=== PATIENT | male | born 1955 | race Caucasian/White ===

== ENCOUNTER 2022-01-19 06:27 | Day surgery (SDC) | payer MEDICARE, SELFPAY ==
[2022-01-09 15:15] VITALS: BMI 30.6
--- NOTE | 2022-01-15 13:46 | HO.ANESPROP2 ---
Documented by User: Laura Lea NP 01/15/22 13:47 HPI - Anesthesia Eval Consult details Narrative: 66yo M for Colonoscopy [facility] Past Medical History Medical History Diabetes DVT (deep venous thrombosis) Elevated cholesterol HTN (hypertension) Pancreatic cancer Sleep apnea Surgical History Surgical History H/O colonoscopy History of laparotomy History of Whipple procedure Hx of appendectomy Hx of hemorrhoidectomy Social History Social History Household Members: Spouse Patient Tobacco Use Status: Former Tobacco user Quit Date: >30 yrs ago Tobacco use type: Cigarette Use of substances other than those prescribed or required for medical reasons: No Are you DNR?: No Advance Directives: No Advance Directives Information Provided: Yes Meds Allergies Allergy/AdvReac Type Severity Reaction Status Date / Time No Known Allergies Allergy Verified 01/19/22 08:22 [No Known Allergies*] Home Medications Medication Instructions Recorded Confirmed Last Taken Type aspirin 81 mg tablet,delayed 81 mg PO DAILY 01/09/22 01/09/22 Unknown History release atorvastatin 80 mg tablet 80 mg PO BEDTIME 01/09/22 01/09/22 Unknown History insulin glargine 100 unit/mL unit SUBCUT DAILY 01/09/22 Unknown History subcutaneous solution (Lantus U-100 Insulin) pantoprazole 40 mg tablet,delayed 40 mg PO DAILY 01/09/22 01/09/22 Unknown History release sertraline 50 mg tablet 50 mg PO DAILY 01/09/22 01/09/22 Unknown History ferrous sulfate 325 mg (65 mg 1 tab PO TID 01/19/22 01/19/22 01/05/22 History iron) tablet (FeroSul) metformin 500 mg tablet 2 tab PO BID 01/19/22 01/19/22 Unknown History Exam Exam Date and Time: January 15, 2022 1346 Height,Weight and Vital Signs: Height 5 ft 5 in Weight 83.461 kg Assessment and Plan Assessment Anesthesia Assessment: Chart Reviewed Documented by User: Charlene Mejia MD 01/19/22 09:01 [facility] Active Problems Active Problems: LOTTIE. Uses CPAP machine every night Depression Past Medical History Medical History Diabetes DVT (deep venous thrombosis) Elevated cholesterol HTN (hypertension) Pancreatic cancer Sleep apnea Family History Family history of problems with anesthesia: No Surgical History Surgical History H/O colonoscopy History of laparotomy History of Whipple procedure Hx of appendectomy Hx of hemorrhoidectomy History of Problems with Anesthesia: No Social History Social History Household Members: Spouse Patient Tobacco Use Status: Former Tobacco user Quit Date: >30 yrs ago Tobacco use type: Cigarette Use of substances other than those prescribed or required for medical reasons: No Are you DNR?: No Advance Directives: No Advance Directives Information Provided: Yes Meds Allergies Allergy/AdvReac Type Severity Reaction Status Date / Time No Known Allergies Allergy Verified 01/19/22 08:22 [No Known Allergies*] Home Medications Medication Instructions Recorded Confirmed Last Taken Type aspirin 81 mg tablet,delayed 81 mg PO DAILY 01/09/22 01/09/22 Unknown History release atorvastatin 80 mg tablet 80 mg PO BEDTIME 01/09/22 01/09/22 Unknown History insulin glargine 100 unit/mL unit SUBCUT DAILY 01/09/22 Unknown History subcutaneous solution (Lantus U-100 Insulin) pantoprazole 40 mg tablet,delayed 40 mg PO DAILY 01/09/22 01/09/22 Unknown History release sertraline 50 mg tablet 50 mg PO DAILY 01/09/22 01/09/22 Unknown History ferrous sulfate 325 mg (65 mg 1 tab PO TID 01/19/22 01/19/22 01/05/22 History iron) tablet (FeroSul) metformin 500 mg tablet 2 tab PO BID 01/19/22 01/19/22 Unknown History Exam Height,Weight and Vital Signs: Height 5 ft 5 in Weight 83.461 kg Vital Signs Temp Pulse Resp BP Pulse Ox 01/19/22 08:04 98.3 F 63 16 140/84 H 96 Pertinent Lab Results Pertinent Lab Results: Lab Results 01/19/22 Range/Units 07:55 POC Glucose 105 (60-115) mg/dL Airway Mallampati Class: II TM Dist: >3cm Neck ROM: Full Denture: Upper Partial: Lower Heart: RRR Lungs: CTAB Assessment and Plan Assessment Anesthesia Assessment: Anesthesia Plan Discussed Final Anesthetic Review Family History of Problems with Anesthesia: No History of Problems with Anesthesia: No NPO: Yes ASA Class: III Final Preanesthetic Review: No Changes in Pt Med Stat, Meds/Allgs Chart Reviewed, Consent Obtained/Reviewed and Anes Risks/Benef Reviewed Patient Risk: Intermediate Procedure Risk: Low Assessment/Block/Sedation in SS: Assess/Block/Sedation-SS Anesthetic Plan Anesthetic Plan: MAC: Disposition: Standard PACU
[2022-01-19 08:04] VITALS: BP 140/84; PULSE 63; RESP 16; TEMP 36.8; O2SAT 96
[2022-01-19 08:09] LABS: Glucose, Whole Blood 105 mg/dL (60-115)
[2022-01-19 09:33] VITALS: BP 121/75; PULSE 69; RESP 18; TEMP 36.3; O2SAT 96
--- NOTE | 2022-01-19 09:33 | PM.OP ---
Brief Operative Note Date of Service: 01/19/22 Pre-op diagnosis: Screening Post-op diagnosis: other (Colon angiodysplasia, Diverticulosis) Procedure: Colonoscopy to the cecum and TI Surgeon: Amadou Cardenas Anesthesia: MAC Was an Phlebotomy Manager used for this Procedure?: No Estimated blood loss (mL): 0 Pathology: none sent Condition: stable Disposition: PACU
[2022-01-19 09:46] VITALS: BP 126/75; PULSE 75; RESP 14; TEMP 36.3; O2SAT 97
--- NOTE | 2022-01-19 10:09 | OP_ITS ---
SURGEON: Amadou Cardenas MD INDICATIONS: The patient presents for evaluation of personal history of tubular adenoma of the colon and colorectal cancer screening. Full consent has been obtained from him for this, including risks of bleeding and perforation. PREOPERATIVE DIAGNOSIS: Colorectal cancer screening and personal history of tubular adenoma of the colon. POSTOPERATIVE DIAGNOSIS: PROCEDURE PERFORMED: Colonoscopy to the cecum and terminal ileum. ESTIMATED BLOOD LOSS: COMPLICATIONS: ANESTHESIA: Monitored anesthesia care. ASSISTANTS: SPECIMENS: POSTOPERATIVE DIAGNOSES: Colorectal cancer screening and personal history of tubular adenoma of the colon, diverticulosis and internal hemorrhoids. DESCRIPTION OF PROCEDURE: The patient was placed in the left lateral decubitus position. The digital rectal exam revealed no abnormalities. The Olympus video pediatric colonoscope was entered into the rectum and advanced easily to the cecum. Once in the cecum, I did identify normal-appearing cecal pouch with appendiceal orifice and a normal-appearing ileocecal valve. The terminal ileum was cannulated and appeared normal. The scope was withdrawn back into the colon. The entire cecum and ileocecal valve appeared normal. The scope was then slowly withdrawn assessing all mucosal surfaces carefully. Preparation was excellent, although there were some areas of some liquid stool in the sigmoid colon in the area of diverticula that was irrigated and suctioned away as best as possible. In the region of the cecum or proximal ascending colon was a single nonbleeding 10 mm angiodysplasia. I did not visualize any other angiodysplasias, polyps, nor colitis. There was a moderate amount of sigmoid diverticulosis. In the rectum, scope was retroflexed visualizing internal hemorrhoids, but no other pathology. The rectal mucosa appeared normal. The scope was straightened and withdrawn from the patient. He tolerated the procedure well and was returned to the recovery area in stable condition. IMPRESSION: 1. Nonbleeding angiodysplasia. 2. Diverticulosis. 3. Internal hemorrhoids. PLAN: Given his previous history, I would recommend a followup colonoscopy in 5 years. He was advised to resume his aspirin and iron by tomorrow. He would see me on a p.r.n. basis otherwise. MD ALEJANDRA Michael/ELZBIETA / [id number]
== END 2022-01-19 10:25 | disposition home or self-care (01) ==
PROVIDERS: PCP Internal Medicine; Visit Provider Internal Medicine
PROC: 0DJD8ZZ Inspection of Lower Intestinal Tract, Via Natural or Artificial Opening Endoscopic (ICD-10-PCS; CPT 45378; principal; 2022-01-19 08:20)
DX: Z12.11 Encounter for screening for malignant neoplasm of colon (principal); Z86.010 Personal history of colon polyps; K55.20 Angiodysplasia of colon without hemorrhage; K57.30 Diverticulosis of large intestine without perforation or abscess without bleeding; K64.8 Other hemorrhoids; E78.5 Hyperlipidemia, unspecified; I10 Essential (primary) hypertension; G47.33 Obstructive sleep apnea (adult) (pediatric); E11.9 Type 2 diabetes mellitus without complications; Z79.4 Long term (current) use of insulin; Z79.82 Long term (current) use of aspirin; Z99.89 Dependence on other enabling machines and devices; Z85.07 Personal history of malignant neoplasm of pancreas; Z87.891 Personal history of nicotine dependence
CPT/HCPCS: G0105; 82947

== ENCOUNTER 2024-03-27 08:51 | Outpatient (AMB) | payer MEDICARE, SELFPAY ==
--- NOTE | 2024-03-27 09:05 | A.OFFPC_ITS ---
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 Intake Note: New patient visit Business Operations Coordinator Required: No Allergies No Known Allergies [No Known Allergies*] Allergy (Verified 03/27/24 09:06) Tobacco use date assessed: 03/27/24 Fall risk assessment: No Falls in past year Last assessed Fall Risk: 03/27/24 Dental Screening Dental Screen Date: 03/27/24 Did you have a dental visit in the last 12 months?: Yes Did you have a dental problem in the last 6 months where you did not have access to dental care?: No Was dental information given to patient?: Patient has dentist HPI HPI Comments History of Present Illness Details This is a 69-year-old male with a past medical history of pancreatic cancer in remission s/p Whipple 2018, depression, GERD, insulin-dependent type 2 diabetes, sleep apnea on CPAP, hyperlipidemia and prostate cancer presenting to [facility]. He transferred from [facility] since they changed to a [facility]. Pancreatic cancer-2018 ipple, sees Dr. Reyes annually. He has a visit in August 2024. Denies abdominal pain, nausea, vomiting or unexplained weight loss. On chronic PPI following Whipple. Prostate cancer-diagnosed this year. He sees Dr. Joy. He is starting radiation therapy soon. Type 2 diabetes mellitus-diagnosed prior to having prostate cancer and Whipple, but patient says he was not on medications for it until after this. Dr. Carrasquillo is eye doctor. He has bilateral cataracts. Blood glucose earlier this morning was 114. Currently 275 after eating breakfast which was espresso at 07:30 followed by a coffee with cream and a bagel with cheese and ham. No symptoms of hyperglycemia today. Glucose varies greatly. Uses CGM. No hypoglycemia within the past month. Patient says he has a sweet tooth. He is on 15 units of Lantus nightly, metformin a 1000 mg twice daily and uses a sliding scale for Humalog. Previously followed by endocrinology at [facility], but he says he was always seeing different providers and there was a lot of turnover. 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 He thinks his A1c 5 months ago was 9%. Denies neuropathy symptoms. Depression treated with sertraline 50 mg daily. He says this is well- controlled. ROS: Constitutional: No unexplained weight loss, fever, chills, fatigue or night sweats. Eyes: No vision changes, blurry vision, double vision, eye pain, eye redness, eye discharge. Respiratory: No shortness of breath, cough or sputum production. Cardiovascular: No chest pain, chest pressure or chest discomfort. No palpitations or pedal edema. Gastrointestinal: No anorexia, nausea, vomiting or diarrhea. No abdominal pain or blood in stool. Neurologic: No headache, dizziness, syncope, unilateral weakness, ataxia, numbness or tingling in the extremities. Skin: No rash Endocrine: No cold or heat intolerance. No polyuria or polydipsia. Psychiatric: No depression or anxiety. Physical exam: Constitutional: Alert, in no distress. Eyes: Pupils are equal, round and reactive to light. Extraocular muscles intact. Neck: Supple, Full range of motion. No lymphadenopathy. Respiratory: Clear to auscultation. Cardiovascular: S1 S2 regular. No murmurs. Gastrointestinal: Abdomen soft, non-tender, non-distended. Normal bowel sounds. No palpable masses. Neurologic: No focal neurological deficits. Musculoskeletal: No gross deformities. Normal range of motion. Extremities: Warm and well perfused. No clubbing, cyanosis or edema. Psychiatric: Normal mood and affect [facility] Medical History (Updated 03/27/24 @ 14:16 by PAWAN Earl) Diabetes mellitus type 2, insulin dependent Prostate cancer Depression GERD (gastroesophageal reflux disease) Hypercholesterolemia Pancreatic cancer Sleep apnea HTN (hypertension) DVT (deep venous thrombosis) Elevated cholesterol Diabetes Surgical History H/O colonoscopy History of laparotomy Hx of hemorrhoidectomy Hx of appendectomy History of Whipple procedure Social History Household Members: Spouse Housing: House Patient Tobacco Use Status: Former Tobacco user Tobacco use type: Cigarette Cigarette Packs Per Day: 3 Years Smoked: 15 quit in 1989 e-Cigarette/Vaping Use: Never Used Second Hand Smoke Exposure: No service: No Current occupational status: retired Cognitive needs: No Hearing needs: Yes (hearing aid) Vision needs: Yes (glasses) Questionnaire PHQ-9 Over the last 2 weeks, how often have you been bothered by any of the following problems? 1. Little interest or pleasure in doing things: not at all 2. Feeling down, depressed, or hopeless: not at all 3. Trouble falling or staying asleep, or sleeping too much: not at all 4. Feeling tired or having little energy: not at all 5. Poor appetite or overeating: not at all 6. Feeling bad about yourself - or that you are a failure or have let yourself or your family down: not at all 7. Trouble concentrating on things, such as reading the newspaper or watching television: not at all 8. Moving or speaking so slowly that other people could have noticed. Or the opposite - being so fidgety or restless that you have been moving around a lot more than usual: not at all 9. Thoughts that you would be better off or of hurting yourself in some way: not at all Total score: 0 Depression Screening Interpretation: Negative Depression Screening Done: Yes [id number] - PHQ-9 Billing: Yes Source: Developed by Drs. Amadou Hanna, Breann Murillo, Mahamed Lynn and colleagues, with an educational shawna from [employer]. Thrive Questionnaire Date Thrive assessed: 03/27/24 I am a: Patient What is your living situation today?: I have a steady place to live Within the past 12 months, did the food you bought not last and you didn't have the money to get more?: Never true Within the past 12 months, did you worry whether your food would run out before you got money to buy more?: Never true Do you have trouble paying for medicines?: No Do you have trouble getting transportation to medical appointments?: No Do you have trouble paying your heating and electricity bill?: No Do you have trouble taking care of your child, family member or friend?: No Do you have trouble with day-to-day activities such as bathing, preparing meals, shopping, managing finances, etc.?: No Are you currently unemployed and looking for a job?: No Are you interested in more education?: No Please select the resources that you would like help with: None Currently or been in a relationship where the following occur: No concerns reported THRIVE Score: 0 AUDIT C Alcohol Use Questionnaire (AUDIT-C) 1. How often do you have a drink containing alcohol?: Never (Stopped in 2019) 3. How often do you have six or more drinks on one occasion?: Never Total Score: 0 TERRI-7 AMB Questionnaire TERRI-7 Date TERRI - 7 assessed: 03/27/24 Feeling nervous, anxious, or on edge: 0 = Not at all Not being able to stop or control worryin = Not at all Worrying too much about different things: 0 = Not at all Trouble relaxin = Not at all Being so restless that it is hard to sit still: 0 = Not at all Becoming easily annoyed or irritable: 0 = Not at all Feeling afraid as if something awful might happen: 0 = Not at all Total TERRI-7 score (0-4 normal; 5-9 mild; 10-14 moderate; 15-21 severe): 0 Source: Developed by Drs. Amadou Hanna, Breann Murillo, Mahamed Lynn and colleagues, with an educational shawna from [employer]. TERRI-7 Assessment Billing TERRI-7 Assessment Tool: TERRI-7 Assessment 24069 Physical exam (Primary Care) Vital Signs: Last Vital Signs Temp 98.2 F 03/27/24 09:23 Pulse 73 03/27/24 09:23 Resp 14 03/27/24 09:23 BP 112/68 03/27/24 09:23 Pulse Ox 95 03/27/24 09:23 Oxygen Delivery Method Room Air 03/27/24 09:23 BMI result Body Mass Index 26.4 Tobacco/Smoking Status: Tobacco use Status Tobacco use date assessed 03/27/24 03/27/24 09:10 Patient Tobacco Use Status Former Tobacco user 03/27/24 09:10 Tobacco use type Cigarette 03/27/24 09:10 e-Cigarette/Vaping Use Never Used 03/27/24 09:10 PHQ-9: PHQ-9 Score PHQ-9: Total score 0 03/27/24 10:06 Depression Screening Interpretation: Negative Thrive Assessment: Date of Thrive Assessment Date Thrive assessed 03/27/24 03/27/24 09:29 Currently or been in a relationship where the following occur: No concerns reported Assessment and Plan Assessment & Plan (1) Pancreatic cancer: Comment: 2019-had Whipple procedure (no chemo or radiation) Code(s): C25.9 - Malignant neoplasm of pancreas, unspecified Qualifiers: Pancreatic malignancy location: unspecified Qualified Code(s): C25.9 - Malignant neoplasm of pancreas, unspecified (2) Depression: Code(s): F32.A - Depression, unspecified Qualifiers: Depression Type: persistent depressive disorder Qualified Code(s): F34.1 - Dysthymic disorder (3) GERD (gastroesophageal reflux disease): Code(s): K21.9 - Gastro-esophageal reflux disease without esophagitis Qualifiers: Esophagitis presence: without esophagitis Qualified Code(s): K21.9 - Gastro-esophageal reflux disease without esophagitis (4) Sleep apnea: Comment: uses CPAP Code(s): G47.30 - Sleep apnea, unspecified Qualifiers: Sleep apnea type: obstructive Qualified Code(s): G47.33 - Obstructive sleep apnea (adult) (pediatric) (5) Diabetes mellitus type 2, insulin dependent: Code(s): E11.9 - Type 2 diabetes mellitus without complications; Z79.4 - detention (current) use of insulin (6) Hypercholesterolemia: Code(s): E78.00 - Pure hypercholesterolemia, unspecified (7) Prostate cancer: Code(s): C61 - Malignant neoplasm of prostate Plan Pancreatic cancer No known recurrence. He sees his surgeon annually. Depression Controlled. Continue sertraline. GERD Following Whipple procedure. Continue chronic PPI. Sleep apnea Compliant with CPAP. Avoidance of alcohol recommended. Type 2 diabetes Patient had type 2 diabetes and then pancreatic injury (cancer and Whipple). Referred to Dr. Reyna. Request falls diabetic labs. Patient will return fasting for these. We will discuss adjusting regimen and schedule short term follow up for this problem. I think he would benefit from seeing information resources manager. He will think about this. Explained diet high in carbs caused blood sugar to increase this morning. Reviewed treatment for hypo and hyper glycemia. Eye exam is up-to-date. Hyperlipidemia Check lipid profile. Continue atorvastatin. Prostate cancer Continue treatment plan per Urology. Follow up in 1 month for diabetes and review labs. Orders: Orders Lipid Panel Today C61 - Malignant neoplasm of prostate, E11.9 - Type 2 diabetes mellitus without complications, E78.00 - Pure hypercholesterolemia, unspecified Comprehensive Met. Panel Today C61 - Malignant neoplasm of prostate, E11.9 - Type 2 diabetes mellitus without complications, E78.00 - Pure hyperchol esterolemia, unspecified Complete Blood Count no Diff Today C61 - Malignant neoplasm of prostate, E11.9 - Type 2 diabetes mellitus without complications, E78.00 - Pure hyper cholesterolemia, unspecified Hemoglobin A1c Today C61 - Malignant neoplasm of prostate, E11.9 - Type 2 diabetes mellitus without complications, E78.00 - Pure hypercholesterolemia, unspecified Microalbumin, Random (w Creat) Today C61 - Malignant neoplasm of prostate, E11.9 - Type 2 diabetes mellitus without complications, E78.00 - Pure hyperchol esterolemia, unspecified Referrals Endocrinology Referral E11.9 - Type 2 diabetes mellitus without complications Coding Level of Care Code New Pt Level 4 (16915) Complex EM visit Add On G2211 Diagnoses Malignant neoplasm of pancreas, unspecified location of malignancy C25.9 Pancreatic malignancy location: unspecified Persistent depressive disorder F34.1 Depression Type: persistent depressive disorder Gastroesophageal reflux disease without esophagitis K21.9 Esophagitis presence: without esophagitis Obstructive sleep apnea syndrome G47.33 Sleep apnea type: obstructive Diabetes mellitus type 2, insulin dependent E11.9; Z79.4 Hypercholesterolemia E78.00 Prostate cancer C61 Additional Codes TERRI-7 Assessment Billing - TERRI-7 Assessment Tool: TERRI-7 Assessment [id number] ([id number])
[2024-03-27 09:23] VITALS: BP 112/68; PULSE 73; RESP 14; TEMP 36.8; O2SAT 95; BMI 26.4
== END 2024-03-27 10:22 | disposition home or self-care (01) ==
PROVIDERS: PCP Physician Assistant Medical; Visit Provider Physician Assistant Medical
DX: C25.9 Malignant neoplasm of pancreas, unspecified (principal); F34.1 Dysthymic disorder; K21.9 Gastro-esophageal reflux disease without esophagitis; G47.33 Obstructive sleep apnea (adult) (pediatric); E11.9 Type 2 diabetes mellitus without complications; Z79.4 Long term (current) use of insulin; E78.00 Pure hypercholesterolemia, unspecified; C61 Malignant neoplasm of prostate
CPT/HCPCS: 96127; 99204; G2211

== ENCOUNTER 2024-03-28 08:18 | Outpatient (REF) | payer MEDICARE, SELFPAY ==
[2024-03-28 12:01] LABS: Hematocrit 45.1 % (42.0-52.0); Hemoglobin 15.1 g/dl (14.0-18.0); Mean Corpuscular HGB Conc 33.5 g/dl (31.0-36.0); Mean Corpuscular Volume 86.6 fL (80.0-98.0); Mean Platelet Volume 10.2 fL (9.4-12.4); Platelet Count 228 X10*3/uL (160-400); Red Blood Count 5.21 X10*6/uL (4.60-5.80); Red Cell Distribution Width 13.9 % (11.0-16.0); White Blood Count 4.6 X10*3/uL (4.8-10.8)
[2024-03-28 12:20] LABS: Estimated Average Glucose 237 mg/dL; Hemoglobin A1c % 9.9 % (<6.0)
[2024-03-28 12:28] LABS: Alanine Aminotransferase 70 U/L (0-40); Albumin Level 3.9 g/dL (3.5-5.0); Alkaline Phosphatase 174 U/L (39-117); Anion Gap 9 (12-20); Aspartate Amino Transferase 57 U/L (5-37); Bilirubin Total 0.5 mg/dL (0.0-1.0); Blood Urea Nitrogen 12 mg/dL (9-16); Calcium 8.6 mg/dL (8.4-10.2); Carbon Dioxide 32 mmol/L (22-29); Chloride 107 mmol/L (96-108); Cholesterol 89 mg/dL (<200); Estimated Glomerular Filt Rate > 60; Glucose Random 107 mg/dL (60-115); HDL Cholesterol 30 mg/dL (>40); LDL Cholesterol Calculated 43 mg/dL (<100); Potassium 3.6 mmol/L (3.3-5.1); Sodium 144 mmol/L (135-145); Total Protein 6.4 g/dL (6.5-8.0); Triglycerides 81 mg/dL (<150)
[2024-03-28 14:19] LABS: Creatinine Urine 157.39 mg/dL; Microalbum/Creatinine Ratio Ur 36.2 ug/mg cr (<30)
== END 2024-03-28 08:19 | disposition home or self-care (01) ==
LOC: HO.WFDLDS 08:18
PROVIDERS: Visit Provider Physician Assistant Medical
DX: E11.9 Type 2 diabetes mellitus without complications (principal); C61 Malignant neoplasm of prostate; E78.00 Pure hypercholesterolemia, unspecified
CPT/HCPCS: 36415; 80053; 80061; 82043; 82570; 83036; 85027

== ENCOUNTER 2024-04-06 13:56 | Outpatient (AMB) | payer MEDICARE, SELFPAY ==
--- NOTE | 2024-04-06 13:58 | A.OFFVIS_ITS ---
Vital Signs 04/06/24 14:04 Height 5 ft 4.7 in Weight 152 lb 1.903 oz BMI 25.5 BP 120/72 Blood Pressure Location Rt brachial Pulse 67 Pulse Source Pulse Oximeter Intake Visit Reasons: T2DM/CONFIRMED Intake Note: Patient presents today to re-establish treatment for Type 2 Diabetes Mellitus: Last Diabetic eye exam was on: 03/09/2024, No Retinopathy Last Podiatry exam was on: Does not see a Rn Hospice Most recent HbA1c: 9.9%, 03/28/2024 Random Glucose- 289 mg/dL, Today Partition Assembler Required: No Accompanied by: Other Relationship Allergies No Known Allergies [No Known Allergies*] Allergy (Verified 03/27/24 09:06) HPI Comments Details: This is a 69-year-old male with a past medical history of pancreatic cancer in remission s/p Whipple 2018,diabetes presenting for diabetes PMHx: prostate ca, pancreatic cancer s/p ipple, depression, GERD, sleep apnea on CPAP, hyperlipidemia Current prescriptions: Lantus 15 units , humalog-taking by sliding scale but does not know his sliding scale. Regarding latter he is not really using because he forgets to take 15 minutes prior to eating Has dexcom: Has one reading, unable to retrieve any other data. Patient reports glucose generally in 200s. Reports sometimes feeling low if glucose drops to 90s Dr. Carrasquillo is eye doctor. He has bilateral cataracts. No numerical control operator ROS CONSTITUTIONAL: Denies weight loss, fever and chills. HEENT: Denies changes in vision and hearing. RESPIRATORY: Denies SOB and cough. CV: Denies palpitations and CP GI: Denies abdominal pain, nausea, vomiting and diarrhea. : Denies dysuria and urinary frequency. MSK: Denies new myalgia and joint pain. SKIN: Denies rash and pruritus. NEUROLOGICAL: Denies headache PSYCHIATRIC: Denies recent changes in mood. PHYSICAL EXAM: GENERAL: Alert and oriented x 3. NAD EYES: EOMI. Anicteric. HENT: Moist mucous membranes. No scleral icterus. No cervical lymphadenopathy. LUNGS: Clear to auscultation bilaterally. CARDIOVASCULAR: Regular rate and rhythm. No murmur. No JVD. ABDOMEN: Soft, non-tender +bs EXTREMITIES: No edema. Non-tender. SKIN: No rashes or lesions. Warm. NEUROLOGIC: No focal neurological deficits. CN II-XII grossly intact PSYCHIATRIC: Cooperative. Appropriate mood and affect [facility] Medical History (Updated 03/31/24 @ 11:04 by PAWAN Earl) Elevated LFTs Microalbuminuria Diabetes mellitus type 2, insulin dependent Prostate cancer Depression GERD (gastroesophageal reflux disease) Hypercholesterolemia Pancreatic cancer Sleep apnea HTN (hypertension) DVT (deep venous thrombosis) Elevated cholesterol Diabetes Surgical History (Updated 04/06/24 @ 14:21 by TURNER Salcedo) History of partial pancreatectomy H/O colonoscopy History of laparotomy Hx of hemorrhoidectomy Hx of appendectomy History of Whipple procedure Social History Household Members: Spouse Housing: House Patient Tobacco Use Status: Former Tobacco user Tobacco use type: Cigarette Cigarette Packs Per Day: 3 Years Smoked: 15 quit in 1989 e-Cigarette/Vaping Use: Never Used Second Hand Smoke Exposure: No service: No Current occupational status: retired Cognitive needs: No Hearing needs: Yes (hearing aid) Vision needs: Yes (glasses) Physical Exam Vital Signs: Last Vital Signs Pulse 67 04/06/24 14:04 BP 120/72 04/06/24 14:04 BMI result Body Mass Index 25.5 Results Reviewed Results Reviewed: Laboratory Last Values Glucose (Clinic) 289 mg/dL (60-115) H 04/06/24 14:14 Assessment & Plan Assessment & Plan (1) Diabetes mellitus type 2, insulin dependent: Code(s): E11.9 - Type 2 diabetes mellitus without complications; Z79.4 - group home (current) use of insulin Category: Medical Plan: Needs diabetic education Start taking humalog right when starts eating if forgets 15 minutes prior sliding scale given to patient (2) Pancreatic cancer: Comment: 2019-had Whipple procedure (no chemo or radiation) Code(s): C25.9 - Malignant neoplasm of pancreas, unspecified Category: Medical Qualifiers: Pancreatic malignancy location: unspecified Qualified Code(s): C25.9 - Malignant neoplasm of pancreas, unspecified Plan: will likely need increasing insulin doses due to partial pancreatectomy Medications: Changed From insulin lispro (Humalog Tadeo KwikPen (U-100)) 1 sliding scale dose subcut USEASDIRECTD To insulin lispro (Humalog Tadeo KwikPen (U-100)) 150-199-2 units 200-249-4 units 250-299-6 units 300-349-8 units >/=350 -10 units 1 sliding scale dose subcut USEASDIRECTD 15 mL 0RF 90 days Coding Level of Care Code Est Pt Level 5 (96426) Diagnoses Diabetes mellitus type 2, insulin dependent E11.9; Z79.4 Malignant neoplasm of pancreas, unspecified location of malignancy C25.9 Pancreatic malignancy location: unspecified
[2024-04-06 14:04] VITALS: BP 120/72; PULSE 67; BMI 25.5
[2024-04-06 14:23] LABS: Glucose, Whole Blood 289 mg/dL (60-115)
== END 2024-04-06 14:54 | disposition home or self-care (01) ==
PROVIDERS: PCP Physician Assistant Medical; Visit Provider Internal Medicine
DX: E11.9 Type 2 diabetes mellitus without complications (principal); Z79.4 Long term (current) use of insulin; C25.9 Malignant neoplasm of pancreas, unspecified
CPT/HCPCS: 99214

== ENCOUNTER → 2024-04-06 13:56 | Outpatient (BNVA) | payer MEDICARE, SELFPAY | PROVIDERS: PCP Physician Assistant Medical; Visit Provider Internal Medicine | DX: C61 Malignant neoplasm of prostate (principal); C78.89 Secondary malignant neoplasm of other digestive organs; E11.9 Type 2 diabetes mellitus without complications; Z79.4 Long term (current) use of insulin | CPT/HCPCS: 82947; 99212 ==

== ENCOUNTER 2024-05-08 15:09 | Outpatient (AMB) | payer MEDICARE, SELFPAY ==
--- NOTE | 2024-05-08 15:16 | MHC.PC.OV ---
Vital Signs 05/08/24 15:24 Height 5 ft 4.7 in Weight 155 lb 8 oz BMI 26.1 BP 138/82 Blood Pressure Location Lt brachial Position Sitting Pulse 60 Pulse Source Pulse Oximeter Pulse Oximetry (%) 99 Oxygen Delivery Method Room Air Intake Visit Reasons: FollowUpLabs Intake Note: Follow up on labs Allergies No Known Allergies [No Known Allergies*] Allergy (Verified 05/08/24 15:21) Tobacco use date assessed: 03/27/24 Dental Screening Dental Screen Date: 03/27/24 HPI HPI Comments History of Present Illness Details This is a 69-year-old male with a past medical history of pancreatic cancer in remission s/p Whipple 2018, depression, GERD, insulin-dependent type 2 diabetes, sleep apnea on CPAP, hyperlipidemia and prostate cancer presenting for follow up. He is here with his . Pancreatic cancer-2018 Whipple, sees Dr. Reyes annually. He has a visit in August 2024. Denies abdominal pain, nausea, vomiting or unexplained weight loss. On chronic PPI following Whipple. Prostate cancer-diagnosed this year. He sees Dr. Joy. He started radiation therapy at [facility] 04/20/24. He is long-term through it. He goes M-F. He's having some side effects including fatigue. Type 2 diabetes mellitus-diagnosed prior to having prostate cancer and Whipple, but patient says he was not on medications for it until after this. Dr. Carrasquillo is eye doctor. He has bilateral cataracts. He started a sliding scale for Humalog after he saw Dr. Louis in endocrinology. He takes 15 units of Lantus nightly. He is having a lot of variabilty in his glucose readings. Patient says if he checks his glucose in the morning and it is under 150 he is not supposed to take Humalog, but after he eats his sugar goes up into the 300s and 400s. BG Very high 59% of the time per CGM during the past 2 weeks. POC 397. Patient had rice, Swiss fries, regular cranberry juice and a pork chop around noon and forgot to take Humalog. Patient says he feels fine. No dizziness, weakness, blurry vision, polyuria, polydipsia, nausea. Patient says he only has symptoms if he has a low blood sugar. He finds it difficult to follow a diabetic diet. He admits that he is not following it. The patient's liver enzymes were elevated on his last labs. I reviewed his records from [facility]. It states that he has had liver enzymes elevated from previous records. He had an ultrasound indicating a need for a GI evaluation. 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 It says he had an ERCP 12/29/2019 due to elevated liver enzymes and abdominal ultrasound showed hepatic steatosis with a cyst. It says he was referred to Dr. Contreras at [facility]. Depression treated with sertraline 50 mg daily. ROS: Constitutional: No unexplained weight loss, fever, chills or night sweats. Eyes: No vision changes, blurry vision, double vision, eye pain, eye redness, eye discharge. Respiratory: No shortness of breath, cough or sputum production. Cardiovascular: No chest pain, chest pressure or chest discomfort. No palpitations or pedal edema. Gastrointestinal: No anorexia, nausea, vomiting or diarrhea. No abdominal pain or blood in stool. Neurologic: No headache, dizziness, syncope, unilateral weakness, ataxia, numbness or tingling in the extremities. Skin: No rash Endocrine: No cold or heat intolerance. No polyuria or polydipsia. Psychiatric: No depression or anxiety. Physical exam: Constitutional: Alert, in no distress. Eyes: Pupils are equal, round and reactive to light. Extraocular muscles intact. Neck: Supple, Full range of motion. No lymphadenopathy. Respiratory: Clear to auscultation. Cardiovascular: S1 S2 regular. No murmurs. Gastrointestinal: Abdomen soft, non-tender, non-distended. Normal bowel sounds. No palpable masses. Neurologic: No focal neurological deficits. Musculoskeletal: No gross deformities. Normal range of motion. Extremities: Warm and well perfused. No clubbing, cyanosis or edema. Psychiatric: Normal mood and affect [facility] Medical History (Updated 05/08/24 @ 17:15 by PAWAN Earl) Hepatic steatosis Elevated LFTs Microalbuminuria Diabetes mellitus type 2, insulin dependent Prostate cancer Depression GERD (gastroesophageal reflux disease) Hypercholesterolemia Pancreatic cancer Sleep apnea HTN (hypertension) DVT (deep venous thrombosis) Elevated cholesterol Diabetes Surgical History (Updated 04/06/24 @ 14:21 by TURNER Salcedo) History of partial pancreatectomy H/O colonoscopy History of laparotomy Hx of hemorrhoidectomy Hx of appendectomy History of Whipple procedure Social History Household Members: Spouse Housing: House Patient Tobacco Use Status: Former Tobacco user Tobacco use type: Cigarette Cigarette Packs Per Day: 3 Years Smoked: 15 quit in 1989 e-Cigarette/Vaping Use: Never Used Second Hand Smoke Exposure: No service: No Current occupational status: retired Cognitive needs: No Hearing needs: Yes (hearing aid) Vision needs: Yes (glasses) Questionnaire Thrive Questionnaire Date Thrive assessed: 03/27/24 TERRI-7 AMB Questionnaire TERRI-7 Date TERRI - 7 assessed: 03/27/24 Source: Developed by Drs. Amadou Hanna, Breann Murillo, Mahamed Lynn and colleagues, with an educational shawna from [employer]. Physical exam (Primary Care) Vital Signs: Last Vital Signs Pulse 60 05/08/24 15:24 BP 138/82 05/08/24 15:24 Pulse Ox 99 05/08/24 15:24 Oxygen Delivery Method Room Air 05/08/24 15:24 BMI result Body Mass Index 26.1 Tobacco/Smoking Status: Tobacco use Status Tobacco use date assessed 03/27/24 05/08/24 15:16 Patient Tobacco Use Status Former Tobacco user 05/08/24 15:16 Tobacco use type Cigarette 05/08/24 15:16 e-Cigarette/Vaping Use Never Used 05/08/24 15:16 Thrive Assessment: Date of Thrive Assessment Date Thrive assessed 03/27/24 05/08/24 15:16 Results AMB Random Glucose (hemocue) AMB Random Glucose (hemocue) 397 mg/dL Last Edit by Marialuisa Diaz CMA on 05/08/24 16:26 Results Reviewed Results Reviewed: Laboratory Last Values Random Glu (Clinic) 397 mg/dL 05/08/24 16:25 Assessment and Plan Assessment & Plan (1) Diabetes mellitus type 2, insulin dependent: Code(s): E11.9 - Type 2 diabetes mellitus without complications; Z79.4 - project geologist (current) use of insulin Plan: Asymptomatic hyperglycemia today. Per CGM patient has been running this high frequently. He did not have Humalog with him, but he is going straight home. Advised patient staff will be leaving and it is too late in the day to administer insulin here because we will need to monitor him for at least an hour after. Patient declined ED. He is drinking water during the visit. States he will go home, take his Humalog and continue drinking water and recheck glucose. If blood glucose does not decrease or if he develops symptoms he agrees to go to ED. Advised risk of DKA, coma and . He has a follow up with endocrinology in a few days. I recommended he discuss insulin pump and consult with life skills educator with Dr. Louis. (2) Prostate cancer: Code(s): C61 - Malignant neoplasm of prostate Plan: Patient will continue treatment plan per Urology. He is receiving radiation. (3) Pancreatic cancer: Comment: 2019-had Whipple procedure (no chemo or radiation) Code(s): C25.9 - Malignant neoplasm of pancreas, unspecified Qualifiers: Pancreatic malignancy location: unspecified Qualified Code(s): C25.9 - Malignant neoplasm of pancreas, unspecified (4) Elevated LFTs: Code(s): R79.89 - Other specified abnormal findings of blood chemistry Plan: This is a chronic issue per prior record. I will request the office notes from Dr. Contreras at [facility]. Ordered repeat LFTs. Plan Follow up in 3 months. Orders: Orders AMB Random Glucose (hemocue) Today Z13.9 - Encounter for screening, unspecified AMB Glucose Monitoring Today E11.9 - Type 2 diabetes mellitus without complications, R79.89 - Other specified abnormal findings of blood chemistry Liver Panel Today R79.89 - Other specified abnormal findings of blood chemistry Coding Level of Care Code Est Pt Level 5 (16908) Complex EM visit Add On G2211 Diagnoses Diabetes mellitus type 2, insulin dependent E11.9; Z79.4 Prostate cancer C61 Malignant neoplasm of pancreas, unspecified location of malignancy C25.9 Pancreatic malignancy location: unspecified Elevated LFTs R79.89 Time Spent (min) 50 Comment Reviewing chart, direct patient care, completing documentation
[2024-05-08 15:24] VITALS: BP 138/82; PULSE 60; O2SAT 99; BMI 26.1
== END 2024-05-08 16:19 | disposition home or self-care (01) ==
PROVIDERS: PCP Physician Assistant Medical; Visit Provider Physician Assistant Medical
DX: E11.9 Type 2 diabetes mellitus without complications (principal); Z79.4 Long term (current) use of insulin; C61 Malignant neoplasm of prostate; C25.9 Malignant neoplasm of pancreas, unspecified; R79.89 Other specified abnormal findings of blood chemistry; Z13.9 Encounter for screening, unspecified

== ENCOUNTER → 2024-05-08 15:09 | Outpatient (BNVA) | payer MEDICARE, SELFPAY | PROVIDERS: PCP Physician Assistant Medical; Visit Provider Physician Assistant Medical | DX: E11.9 Type 2 diabetes mellitus without complications (principal); Z79.4 Long term (current) use of insulin; C61 Malignant neoplasm of prostate; R79.89 Other specified abnormal findings of blood chemistry; F32.A Depression, unspecified; Z85.07 Personal history of malignant neoplasm of pancreas; Z79.899 Other long term (current) drug therapy | CPT/HCPCS: 82948; 99212 ==

== ENCOUNTER 2024-05-11 12:54 | Outpatient (AMB) | payer MEDICARE, SELFPAY ==
--- NOTE | 2024-05-11 13:04 | A.OFFVIS_ITS ---
Vital Signs 05/11/24 13:05 Height 5 ft 4.7 in Weight 154 lb 5.177 oz BMI 25.9 BP 122/68 Blood Pressure Location Rt brachial Position Sitting Pulse 91 Pulse Source Pulse Oximeter Intake Visit Reasons: DM Intake Note: Patient presents today to for a follow-up on Type 2 Diabetes Mellitus: Last Diabetic eye exam was on: 03/09/2024, No Retinopathy Last Podiatry exam was on: Does not see a President/[employer] Most recent HbA1c: 9.9%, 03/28/2024 Random Glucose- 355mg/dL, Today Brake Rider Required: No Accompanied by: Other Relationship Allergies No Known Allergies [No Known Allergies*] Allergy (Verified 05/08/24 15:21) HPI Comments Details: This is a 69-year-old male with a past medical history of pancreatic cancer in remission s/p Whipple 2018,diabetes presenting for diabetes PMHx: prostate ca, pancreatic cancer s/p ipple, depression, GERD, sleep apnea on CPAP, hyperlipidemia Current prescriptions: Lantus 15 units , humalog-taking by sliding scale, metfromin 1000mg twice daily At last visit he didnt know his sliding scale so we created one->150 2 units and an additional 2 units for each 50. He ended up started to take 6 units even if below 150 and started taking 9 or 10 units with meals. Finds it difficult b/c he eats numerous times a day and even when snacking finds that his glucose rises quite a bit. He has had 3 recent am readings in the am-he gets shaky and weak. He responds appropriately to snack/juice. A1C is march was 9.9% Has dexcom: Has one reading, unable to retrieve any other data. Is not linked. He would consider a different method of insulin administration ie pump and he will meet with the municipal court judge today. Dr. Carrasquillo is eye doctor. He has bilateral cataracts. 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 ROS CONSTITUTIONAL: Denies weight loss, fever and chills. HEENT: Denies changes in vision and hearing. RESPIRATORY: Denies SOB and cough. CV: Denies palpitations and CP GI: Denies abdominal pain, nausea, vomiting and diarrhea. : Denies dysuria and urinary frequency. MSK: Denies new myalgia and joint pain. SKIN: Denies rash and pruritus. NEUROLOGICAL: Denies headache PSYCHIATRIC: Denies recent changes in mood. PHYSICAL EXAM: GENERAL: Alert and oriented x 3. NAD EYES: EOMI. Anicteric. HENT: Moist mucous membranes. No scleral icterus. No cervical lymphadenopathy. LUNGS: Clear to auscultation bilaterally. CARDIOVASCULAR: Regular rate and rhythm. No murmur. No JVD. ABDOMEN: Soft, non-tender +bs EXTREMITIES: No edema. Non-tender. SKIN: No rashes or lesions. Warm. NEUROLOGIC: No focal neurological deficits. CN II-XII grossly intact PSYCHIATRIC: Cooperative. Appropriate mood and affect [facility] Medical History (Updated 05/11/24 @ 13:56 by Meenakshi Louis MD) Hepatic steatosis Elevated LFTs Microalbuminuria Diabetes mellitus type 2, insulin dependent Prostate cancer Depression GERD (gastroesophageal reflux disease) Hypercholesterolemia Pancreatic cancer Sleep apnea HTN (hypertension) DVT (deep venous thrombosis) Elevated cholesterol Diabetes Surgical History (Updated 04/06/24 @ 14:21 by TURNER Salcedo) History of partial pancreatectomy H/O colonoscopy History of laparotomy Hx of hemorrhoidectomy Hx of appendectomy History of Whipple procedure Social History Household Members: Spouse Housing: House Patient Tobacco Use Status: Former Tobacco user Tobacco use type: Cigarette Cigarette Packs Per Day: 3 Years Smoked: 15 quit in 1989 e-Cigarette/Vaping Use: Never Used Second Hand Smoke Exposure: No service: No Current occupational status: retired Cognitive needs: No Hearing needs: Yes (hearing aid) Vision needs: Yes (glasses) Physical Exam Vital Signs: Last Vital Signs Pulse 91 05/11/24 13:05 BP 122/68 05/11/24 13:05 BMI result Body Mass Index 25.9 Assessment & Plan Assessment & Plan (1) Diabetes mellitus type 2, insulin dependent: Code(s): E11.9 - Type 2 diabetes mellitus without complications; Z79.4 - assisted (current) use of insulin Category: Medical Plan: Uncontrolled. He will meet with municipal court judge today. Hopefully they can get Dexcom sharing and discuss eating frequency, insulin administration and potentially. Will create plan for patient pending this meeting (2) Pancreatic cancer: Code(s): C25.9 - Malignant neoplasm of pancreas, unspecified Category: Medical Qualifiers: Pancreatic malignancy location: unspecified Qualified Code(s): C25.9 - Malignant neoplasm of pancreas, unspecified Plan: s/p whipple Orders: Orders TSH reflex Free T4 Today R63.8 - Other symptoms and signs concerning food and fluid intake Referrals Diabetes Education Referral E11.9 - Type 2 diabetes mellitus without complications, Z79.4 - assisted (current) use of insulin Medications: Changed From insulin lispro (Humalog Tadeo KwikPen (U-100)) 150-199-2 units 200-249-4 units 250-299-6 units 300-349-8 units >/=350 -10 units 1 sliding scale dose subcut USEASDIRECTD 90 days 15 mL 0RF To insulin lispro (Humalog Tadeo KwikPen (U-100)) <150 6 units 150-300-10 units >300 -12 units 1 sliding scale dose subcut USEASDIRECTD 90 days 15 mL 0RF Coding Level of Care Code Est Pt Level 4 (71416) Diagnoses Diabetes mellitus type 2, insulin dependent E11.9; Z79.4 Malignant neoplasm of pancreas, unspecified location of malignancy C25.9 Pancreatic malignancy location: unspecified
[2024-05-11 13:05] VITALS: BP 122/68; PULSE 91; BMI 25.9
[2024-05-11 13:14] LABS: Glucose, Whole Blood 355 mg/dL (60-115)
== END 2024-05-11 14:03 | disposition home or self-care (01) ==
PROVIDERS: PCP Physician Assistant Medical; Visit Provider Internal Medicine
DX: E11.9 Type 2 diabetes mellitus without complications (principal); Z79.4 Long term (current) use of insulin; C25.9 Malignant neoplasm of pancreas, unspecified

== ENCOUNTER → 2024-05-11 12:54 | Outpatient (BNVA) | payer MEDICARE, SELFPAY | PROVIDERS: PCP Physician Assistant Medical; Visit Provider Internal Medicine | DX: E11.9 Type 2 diabetes mellitus without complications (principal); R63.8 Other symptoms and signs concerning food and fluid intake; C25.9 Malignant neoplasm of pancreas, unspecified; Z79.64 Long term (current) use of myelosuppressive agent | CPT/HCPCS: 82947; 99211; 99212 ==

== ENCOUNTER 2024-05-11 13:21 | Outpatient (AMB) | payer MEDICARE, SELFPAY ==
--- NOTE | 2024-05-11 14:16 | MHC.AMDMED ---
Intake Intake Visit Reasons: DM Patternmaker Pressure Cast Required: No Accompanied by: Self / Same As Patient Allergies No Known Allergies [No Known Allergies*] Allergy (Verified 05/08/24 15:21) HPI Comprehensive Diabetes Asmnt Most Recent Diabetes Results: Microalb/Creat Ratio 36.2 ug/mg cr (<30) H 03/28/24 Cholesterol 89 mg/dL (<200) 03/28/24 HDL Cholesterol 30 mg/dL (>40) L 03/28/24 Triglycerides 81 mg/dL (<150) 03/28/24 Creatinine 0.84 mg/dL (0.5-1.4) 03/28/24 Blood Urea Nitrogen 12 mg/dL (9-16) 03/28/24 Sodium 144 mmol/L (135-145) 03/28/24 Potassium 3.6 mmol/L (3.3-5.1) 03/28/24 Chloride 107 mmol/L (96-108) 03/28/24 Carbon Dioxide 32 mmol/L (22-29) H 03/28/24 Calcium 8.6 mg/dL (8.4-10.2) 03/28/24 AST 57 U/L (5-37) H 03/28/24 ALT 70 U/L (0-40) H 03/28/24 Total Protein 6.4 g/dL (6.5-8.0) L 03/28/24 Albumin 3.9 g/dL (3.5-5.0) 03/28/24 [facility] Medical History (Updated 05/11/24 @ 13:56 by Meenakshi Louis MD) Hepatic steatosis Elevated LFTs Microalbuminuria Diabetes mellitus type 2, insulin dependent Prostate cancer Depression GERD (gastroesophageal reflux disease) Hypercholesterolemia Pancreatic cancer Sleep apnea HTN (hypertension) DVT (deep venous thrombosis) Elevated cholesterol Diabetes Surgical History (Updated 04/06/24 @ 14:21 by TURNER Salcedo) History of partial pancreatectomy H/O colonoscopy History of laparotomy Hx of hemorrhoidectomy Hx of appendectomy History of Whipple procedure Social History Household Members: Spouse Housing: House Patient Tobacco Use Status: Former Tobacco user Tobacco use type: Cigarette Cigarette Packs Per Day: 3 Years Smoked: 15 quit in 1989 e-Cigarette/Vaping Use: Never Used Second Hand Smoke Exposure: No service: No Current occupational status: retired Cognitive needs: No Hearing needs: Yes (hearing aid) Vision needs: Yes (glasses) Assessment & Plan Assessment & Plan (1) Diabetes mellitus type 2, insulin dependent: Code(s): E11.9 - Type 2 diabetes mellitus without complications; Z79.4 - halfway (current) use of insulin Plan: CGM Info Instructed Pt on what CGM can and can't do CGM Can: Give Pt minute by minute reading of glucose levels Displays glucose trend arrows that represents the direction glucose levels are fluctuating Give insight on decisions about how to dose insulin CGM cannot: Improve glucose control on its own Completely eliminate the need for all finger sticks Make dosing decision for you CGM is the reading of glucose in the interstitial fluid not actual blood glucose, finger sticks are still necessary when Pt's symptom?s do not match sensor reading and if sensors prompts Pt to do a fingerstick Patient?has Dexcom G6 Patient is not interested in upgrading to Dexcom G7 at this time Set up patient's Dexcom clarity marge and connected to endocrine clinic so Dexcom clarity Reviewed with patient insulin action of both Humalog and Lantus Patient reports eating multiple times a day, recommended to patient to take Humalog before meals and large snack, greater than 20 g of carbohydrate Patient given carbohydrate list Do not take 2 doses of Humalog within 3 hours of each other Briefly discussed insulin pump therapy with patient, patient took iLet information Patient is not interested in insulin pump therapy at this time Reviewed delay of CGM from fingersticks Reminded pt that if symptoms do not match sensor still needs to check fingersticks. Portions of this note were created using voice recognition software, please excuse any words or phrases that may have been misinterpreted. Patient Instructions: Humalog Sliding Scale <150 6 units 150-300-10 units >300?? -12 units Patient will call with questions or concerns or for next visit Coding Level of Care Code Est Pt Level 1 (56225) Diagnoses Diabetes mellitus type 2, insulin dependent E11.9; Z79.4
== END 2024-05-11 14:43 | disposition home or self-care (01) ==
PROVIDERS: PCP Physician Assistant Medical; Visit Provider Registered Nurse Diabetes Educator
DX: E11.9 Type 2 diabetes mellitus without complications (principal); Z79.4 Long term (current) use of insulin

== ENCOUNTER 2024-05-23 15:12 | Outpatient (AMB) | payer MEDICARE, SELFPAY ==
--- NOTE | 2024-05-23 15:53 | MHC.AMDMED ---
Intake Intake Visit Reasons: [id number] [place] Required: No Accompanied by: Spouse Allergies No Known Allergies [No Known Allergies*] Allergy (Verified 05/08/24 15:21) HPI Comprehensive Diabetes Asmnt Most Recent Diabetes Results: Microalb/Creat Ratio 36.2 ug/mg cr (<30) H 03/28/24 Cholesterol 89 mg/dL (<200) 03/28/24 HDL Cholesterol 30 mg/dL (>40) L 03/28/24 Triglycerides 81 mg/dL (<150) 03/28/24 Creatinine 0.84 mg/dL (0.5-1.4) 03/28/24 Blood Urea Nitrogen 12 mg/dL (9-16) 03/28/24 Sodium 144 mmol/L (135-145) 03/28/24 Potassium 3.6 mmol/L (3.3-5.1) 03/28/24 Chloride 107 mmol/L (96-108) 03/28/24 Carbon Dioxide 32 mmol/L (22-29) H 03/28/24 Calcium 8.6 mg/dL (8.4-10.2) 03/28/24 AST 57 U/L (5-37) H 03/28/24 ALT 70 U/L (0-40) H 03/28/24 Total Protein 6.4 g/dL (6.5-8.0) L 03/28/24 Albumin 3.9 g/dL (3.5-5.0) 03/28/24 FORMERLY [facility], [facility]–1983 Medical History (Updated 05/11/24 @ 13:56 by Meenakshi Louis MD) Hepatic steatosis Elevated LFTs Microalbuminuria Diabetes mellitus type 2, insulin dependent Prostate cancer Depression GERD (gastroesophageal reflux disease) Hypercholesterolemia Pancreatic cancer Sleep apnea HTN (hypertension) DVT (deep venous thrombosis) Elevated cholesterol Diabetes Surgical History (Updated 04/06/24 @ 14:21 by TURNER Salcedo) History of partial pancreatectomy H/O colonoscopy History of laparotomy Hx of hemorrhoidectomy Hx of appendectomy History of Whipple procedure Social History Household Members: Spouse Housing: House Patient Tobacco Use Status: Former Tobacco user Tobacco use type: Cigarette Cigarette Packs Per Day: 3 Years Smoked: 15 quit in 1989 e-Cigarette/Vaping Use: Never Used Second Hand Smoke Exposure: No service: No Current occupational status: retired Cognitive needs: No Hearing needs: Yes (hearing aid) Vision needs: Yes (glasses) Assessment & Plan Assessment & Plan (1) Diabetes mellitus type 2, insulin dependent: Code(s): E11.9 - Type 2 diabetes mellitus without complications; 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 1% Hyperglycemia:? 79% Time in Range:? 20% Average glucose for the last 2 weeks ?260 mg/dL Patient has several nights with hypoglycemic events Adjusted Humalog sliding scale, to try and prevent some hypoglycemia Instructed patient the importance of keeping carbohydrates at meals consistent when using sliding scale Patient stated visit that he is reconsidering using insulin pump Reviewed with patient how to treat hypoglycemia with rule of 15s Suggested to patient he gets 4 oz juice box to keep by his bed so if he does wake up with low blood glucose he is not getting up and walking through the house for low blood glucose treatment Patient agreed to plan Patient will call if hypoglycemia persists Reviewed how to interpret trend arrows Reminded patient that to check finger sticks if symptoms do not match sensor reading. Discussed lag time between finger stick and sensor data.? Patient able to insert sensor independently at home without issue.? Portions of this note were created using voice recognition software, please excuse any words or phrases that may have been misinterpreted. Patient Instructions: Humalog before Meals Less than 80- 150 mg/dL 6 units 151-200 mg/dL 8 units 201- 350 mg/dL 10 units Greater 351 mg/dL 12 units DIABETES PROBLEMS HOMECARE INSTRUCTIONS Hypo instructions ? When first signs of insulin reaction occur, immediately drink orange juice or cola, or suck on a sugar cube, but only if the person is conscious. ? Person with diabetes should continue taking insulin when ill, unless he/she is not able to eat.? Regularly check blood sugar or urine for sugar and acetone during illness. ? Exercise regularly. ? Pay special attention to the feet.? Avoid cuts, sores, blisters, ill-fitting shoes, or going barefoot.? Promptly treat injuries to the feet. ? Take medications as directed by physician. ? Drink extra water or noncaffeinated, nonsugared drinks to prevented hydration. Signs and symptoms of low blood sugar (happen quickly) Each person's reaction to low blood sugar is different. Learn your own signs and symptoms of when your blood sugar is low. Taking time to write these symptoms down may help you learn your own symptoms of when your blood sugar is low. From milder, more common indicators to most severe, signs and symptoms of low blood sugar include: Feeling shaky Being nervous or anxious Sweating, chills and clamminess Irritability or impatience Confusion Fast heartbeat Feeling lightheaded or dizzy Hunger Nausea Color draining from the skin (pallor) Feeling Sleepy Feeling weak or having no energy Blurred/impaired vision Tingling or numbness in the lips, tongue, or cheeks Headaches Coordination problems, clumsiness Hypoglycemia or blood glucose under 70 mg/dL use the rule of 15's: If you have your blood glucose meter test your blood glucose, if you do not have your meter still follow below instruction: Keep quick-sugar foods with you at all times.? Take 15 grams of fast acting carbohydrates. Examples are 4 ounces of fruit juice or regular soda pop, 8 ounces fat-free milk, 1 tablespoon of table sugar, honey or corn syrup, jam, one miniature box of raisins, 7-8 gumdrops or Life Savers candy, 4 glucose tablets, and glucose gel.? Retest blood glucose in 15 minutes, if blood glucose is still under 80,repeat rule of 15's. If blood glucose is under 50, take 30 grams of fast acting carbohydrates If you are having hypoglycemia, or insulin reaction, more that a few times a week, call MD or certified adaptive physical educator F/U BG check Coding Level of Care Code Est Pt Level 1 (41308) Diagnoses Diabetes mellitus type 2, insulin dependent E11.9; Z79.4
== END 2024-05-23 16:30 | disposition home or self-care (01) ==
PROVIDERS: PCP Physician Assistant Medical; Visit Provider Registered Nurse Diabetes Educator
DX: E11.9 Type 2 diabetes mellitus without complications (principal); Z79.4 Long term (current) use of insulin

== ENCOUNTER → 2024-05-23 15:12 | Outpatient (BNVA) | payer MEDICARE, SELFPAY | PROVIDERS: PCP Physician Assistant Medical; Visit Provider Registered Nurse Diabetes Educator | DX: E11.9 Type 2 diabetes mellitus without complications (principal); Z79.4 Long term (current) use of insulin | CPT/HCPCS: 99211 ==

== ENCOUNTER 2024-06-15 11:19 | Outpatient (REF) | payer MEDICARE, SELFPAY ==
[2024-06-15 14:58] LABS: Alanine Aminotransferase 59 U/L (0-40); Albumin Level 3.7 g/dL (3.5-5.0); Alkaline Phosphatase 89 U/L (39-117); Aspartate Amino Transferase 95 U/L (5-37); Bilirubin Direct 0.2 mg/dL (0.0-0.5); Bilirubin Total 0.5 mg/dL (0.0-1.0)
[2024-06-15 16:14] LABS: TSH reflex Free T4 1.32 uIU/mL (0.32-4.0)
== END 2024-06-15 11:20 | disposition home or self-care (01) ==
LOC: HO.WFDLDS 11:19
PROVIDERS: Referring Provider Physician Assistant Medical; Visit Provider Internal Medicine
DX: R63.8 Other symptoms and signs concerning food and fluid intake (principal); R79.89 Other specified abnormal findings of blood chemistry
CPT/HCPCS: 36415; 80076; 84443

== ENCOUNTER 2024-06-22 13:47 | Outpatient (AMB) | payer MEDICARE, SELFPAY ==
--- NOTE | 2024-06-22 14:04 | A.OFFVIS_ITS ---
Vital Signs 06/22/24 14:07 Height 5 ft 4.7 in Weight 154 lb 5.177 oz BMI 25.9 BP 120/82 Blood Pressure Location Rt brachial Position Sitting Pulse 70 Intake Visit Reasons: DM/CONFIRMED Intake Note: Patient presents today to for a follow-up on Type 2 Diabetes Mellitus: Last Diabetic eye exam was on: 03/09/2024, No Retinopathy Last Podiatry exam was on: Does not see a Solution Spec Most recent HbA1c: 10.4%, 06/22/2024 Random Glucose- 344 mg/dL, Today Family Health Nurse Practitioner Required: No Accompanied by: Self / Same As Patient Allergies No Known Allergies [No Known Allergies*] Allergy (Verified 05/08/24 15:21) HPI Comments Details: This is a 69-year-old male with a past medical history of pancreatic cancer in remission s/p Whipple 2018,diabetes presenting for diabetes PMHx: prostate ca, pancreatic cancer s/p whipple, depression, GERD, sleep apnea on CPAP, hyperlipidemia Current prescriptions: Lantus 12 units , humalog-taking by sliding scale-see below for below, metformin 1000mg twice daily. He has had some overnight lows. He responds appropriately to snack/juice. A1C is march was 9.9% and A1C today 10.4% Humalog before Meals Less than 80- 150 mg/dL 6 units 151-200 mg/dL 8 units 201- 350 mg/dL 10 units Greater 351 mg/dL 12 units Has dexcom: Has one reading, unable to retrieve any other data. Is not linked. He would consider a different method of insulin administration ie pump and he will meet with the development educator today. Dr. Carrasquillo is eye doctor. He has bilateral cataracts. No genetic counsellor Type 2 diabetes mellitus-diagnosed prior to having prostate cancer and Whipple, but patient says he was not on medications for it until after this. ROS CONSTITUTIONAL: Denies weight loss, fever and chills. HEENT: Denies changes in vision and hearing. RESPIRATORY: Denies SOB and cough. CV: Denies palpitations and CP GI: Denies abdominal pain, nausea, vomiting and diarrhea. : Denies dysuria and urinary frequency. MSK: Denies new myalgia and joint pain. SKIN: Denies rash and pruritus. NEUROLOGICAL: Denies headache PSYCHIATRIC: Denies recent changes in mood. PHYSICAL EXAM: GENERAL: Alert and oriented x 3. NAD EYES: EOMI. Anicteric. HENT: Moist mucous membranes. No scleral icterus. No cervical lymphadenopathy. LUNGS: Clear to auscultation bilaterally. CARDIOVASCULAR: Regular rate and rhythm. No murmur. No JVD. ABDOMEN: Soft, non-tender +bs EXTREMITIES: No edema. Non-tender. SKIN: No rashes or lesions. Warm. NEUROLOGIC: No focal neurological deficits. CN II-XII grossly intact PSYCHIATRIC: Cooperative. Appropriate mood and affect [facility] Medical History (Updated 06/22/24 @ 14:57 by Meenakshi Louis MD) Hepatic steatosis Elevated LFTs Microalbuminuria Diabetes mellitus type 2, insulin dependent Prostate cancer Depression GERD (gastroesophageal reflux disease) Hypercholesterolemia Pancreatic cancer Sleep apnea HTN (hypertension) DVT (deep venous thrombosis) Elevated cholesterol Diabetes Surgical History (Updated 04/06/24 @ 14:21 by TURNER Salcedo) History of partial pancreatectomy H/O colonoscopy History of laparotomy Hx of hemorrhoidectomy Hx of appendectomy History of Whipple procedure Social History Household Members: Spouse Housing: House Patient Tobacco Use Status: Former Tobacco user Tobacco use type: Cigarette Cigarette Packs Per Day: 3 Years Smoked: 15 quit in 1989 e-Cigarette/Vaping Use: Never Used Second Hand Smoke Exposure: No service: No Current occupational status: retired Cognitive needs: No Hearing needs: Yes (hearing aid) Vision needs: Yes (glasses) Physical Exam Vital Signs: Last Vital Signs Pulse 70 06/22/24 14:07 BP 120/82 06/22/24 14:07 BMI result Body Mass Index 25.9 Results AMB Hemoglobin A1c AMB Hemoglobin A1c 10.4 % Last Edit by TURNER Salcedo on 06/22/24 14:2 8 Results Reviewed Results Reviewed: Laboratory Last Values Glucose (Clinic) 344 mg/dL (60-115) H 06/22/24 14:10 Assessment & Plan Assessment & Plan (1) Diabetes: Comment: insulin dependent Code(s): E11.9 - Type 2 diabetes mellitus without complications Category: Medical Qualifiers: Diabetes mellitus type: type 2 Diabetes mellitus alf insulin use: without alf use Diabetes mellitus complication status: without complication Qualified Code(s): E11.9 - Type 2 diabetes mellitus without complications Plan: Increase lantus to 16 units Decrease supper insulin to 6 units-max continue sliding scale with breakfast and lunch Patient needs improved glycemic control s/p whipple. May benefit from insulin pump or iLET Orders: Orders AMB Hemoglobin A1c Today E11.9 - Type 2 diabetes mellitus without complications, Z79.4 - prison (current) use of insulin Medications: Changed From insulin glargine (Lantus Solostar U-100 Insulin) 16 units (0.16 mL) subcut .nightly 15 mL 3RF To Lantus Solostar U-100 Insulin (insulin glargine) 5 PENS 16 units (0.16 mL) subcut .nightly 15 mL 3RF NS From insulin lispro (Humalog Tadeo KwikPen (U-100)) <150 6 units 150-300-10 units >300 -12 units 1 sliding scale dose subcut USEASDIRECTD 90 days 15 mL 0RF To insulin lispro (Humalog Tadeo KwikPen (U-100)) 5 PENS with breakfast and lunch Less than 80- 150 mg/dL 6 units 151-200 mg/dL 8 units 201- 350 mg/dL 10 units Greater 351 mg/dL 12 units With dinner take 6 units 1 sliding scale dose subcut USEASDIRECTD 90 days 15 mL 3RF From insulin glargine (Lantus Solostar U-100 Insulin) 15 units (0.15 mL) subcut .nightly 15 mL 3RF To insulin glargine (Lantus Solostar U-100 Insulin) 16 units (0.16 mL) subcut .nightly 15 mL 3RF Coding Level of Care Code Est Pt Level 4 (49914) Diagnoses Type 2 diabetes mellitus without complication, without long-term current use of insulin E11.9 Diabetes mellitus type: type 2 Diabetes mellitus alf insulin use: without alf use Diabetes mellitus complication status: without complication
[2024-06-22 14:07] VITALS: BP 120/82; PULSE 70; BMI 25.9
[2024-06-22 14:17] LABS: Glucose, Whole Blood 344 mg/dL (60-115)
== END 2024-06-22 14:43 | disposition home or self-care (01) ==
LOC: HO.ENCR 13:48
PROVIDERS: PCP Physician Assistant Medical; Visit Provider Internal Medicine
DX: E11.9 Type 2 diabetes mellitus without complications (principal); Z79.4 Long term (current) use of insulin

== ENCOUNTER → 2024-06-22 13:47 | Outpatient (BNVA) | payer MEDICARE, SELFPAY | PROVIDERS: PCP Physician Assistant Medical; Visit Provider Internal Medicine | DX: E11.9 Type 2 diabetes mellitus without complications (principal); Z79.4 Long term (current) use of insulin; Z79.84 Long term (current) use of oral hypoglycemic drugs | CPT/HCPCS: 82947; 83036; 99212 ==

== ENCOUNTER 2024-07-26 12:29 | Outpatient (AMB) | payer MEDICARE, SELFPAY ==
[2024-07-26 12:44] VITALS: BP 126/78; PULSE 71; BMI 27.0
--- NOTE | 2024-07-26 12:44 | A.OFFVIS_ITS ---
Vital Signs 07/26/24 12:44 Height 5 ft 4.7 in Weight 160 lb 14.999 oz BMI 27.0 BP 126/78 Blood Pressure Location Rt brachial Position Sitting Pulse 71 Pulse Source Pulse Oximeter Intake Visit Reasons: DM follow up/Confirmed Intake Note: Patient presents today to for a follow-up on Type 2 Diabetes Mellitus: Last Diabetic eye exam was on: 03/09/2024, No Retinopathy Last Podiatry exam was on: Does not see a Heeler Most recent HbA1c: 10.4%, 06/22/2024 Random Glucose- 284 mg/dL, Today Network Architect Manager Required: No Accompanied by: Self / Same As Patient Allergies No Known Allergies [No Known Allergies*] Allergy (Verified 07/26/24 12:45) HPI Comments Details: This is a 69-year-old male with a past medical history of pancreatic cancer in remission s/p Whipple 2018,diabetes presenting for diabetes PMHx: prostate ca, pancreatic cancer s/p whipple, depression, GERD, sleep apnea on CPAP, hyperlipidemia Current prescriptions: Lantus 16 units, humalog-see below, metformin 1000mg twice daily. He has had some overnight lows. He responds appropriately to snack/juice. A1C 06/22 10.4. Humalog with breakfast and lunch Less than 80- 150 mg/dL 6 units 151-200 mg/dL 8 units 201- 350 mg/dL 10 units Greater 351 mg/dL 12 units With dinner take 6 units Has dexcom: GMI 9.6%, TGT 29%, high 71%. No low on CGM today but prone to lows in recent past. Interested in pump given uncontrolled diabetes, history of partial pancreatectomy. Discussed a few option with nursing educator. Will see her again at end of Jul Dr. Carrasquillo is eye doctor. He has bilateral cataracts. 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 ROS CONSTITUTIONAL: Denies weight loss, fever and chills. HEENT: Denies changes in vision and hearing. RESPIRATORY: Denies SOB and cough. CV: Denies palpitations and CP GI: Denies abdominal pain, nausea, vomiting and diarrhea. : Denies dysuria and urinary frequency. MSK: Denies new myalgia and joint pain. SKIN: Denies rash and pruritus. NEUROLOGICAL: Denies headache PSYCHIATRIC: Denies recent changes in mood. PHYSICAL EXAM: GENERAL: Alert and oriented x 3. NAD EYES: EOMI. Anicteric. HENT: Moist mucous membranes. No scleral icterus. No cervical lymphadenopathy. LUNGS: Clear to auscultation bilaterally. CARDIOVASCULAR: Regular rate and rhythm. No murmur. No JVD. ABDOMEN: Soft, non-tender +bs EXTREMITIES: No edema. Non-tender. SKIN: No rashes or lesions. Warm. NEUROLOGIC: No focal neurological deficits. CN II-XII grossly intact PSYCHIATRIC: Cooperative. Appropriate mood and affect REPLACED BY [facility] Medical History Hepatic steatosis Elevated LFTs Microalbuminuria Diabetes mellitus type 2, insulin dependent Prostate cancer Depression GERD (gastroesophageal reflux disease) Hypercholesterolemia Pancreatic cancer Sleep apnea HTN (hypertension) DVT (deep venous thrombosis) Elevated cholesterol Diabetes Surgical History History of partial pancreatectomy H/O colonoscopy History of laparotomy Hx of hemorrhoidectomy Hx of appendectomy History of Whipple procedure Social History Household Members: Spouse Housing: House Patient Tobacco Use Status: Former Tobacco user Tobacco use type: Cigarette Cigarette Packs Per Day: 3 Years Smoked: 15 quit in 1989 e-Cigarette/Vaping Use: Never Used Second Hand Smoke Exposure: No service: No Current occupational status: retired Cognitive needs: No Hearing needs: Yes (hearing aid) Vision needs: Yes (glasses) Physical Exam Vital Signs: Last Vital Signs Pulse 71 07/26/24 12:44 BP 126/78 07/26/24 12:44 BMI result Body Mass Index 27.0 Results Reviewed Results Reviewed: Laboratory Last Values Glucose (Clinic) 284 mg/dL (60-115) H 07/26/24 12:48 Assessment & Plan Assessment & Plan (1) Diabetes mellitus type 2, insulin dependent: Code(s): E11.9 - Type 2 diabetes mellitus without complications; Z79.4 - [facility] (current) use of insulin Category: Medical Plan: Will set up with Jackie Kerns CHEMICAL COMPOUNDER and continue care with Cierra Tiwari as intere sted in pursuing pump He will continue current doses of medication at present Having issues with pharmacy. 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 Category: Surgical Plan: see HPI Medications: New BD Ultra-Fine Bianca Pen Needle (pen needle, diabetic) Four times times daily 200 ea 3RF NS E11.9 - Type 2 diabetes mellitus without complications, Z79.4 - [facility] (current) use of insulin Discontinued insulin lispro (Humalog Tadeo KwikPen (U-100)) 5 PENS with breakfast and lunch Less than 80- 150 mg/dL 6 units 151-200 mg/dL 8 units 201- 350 mg/dL 10 units Greater 351 mg/dL 12 units With dinner take 6 units Discontinued Reason: Doctor's Order 1 sliding scale dose subcut USEASDIRECTD 90 days 15 mL 3RF Coding Level of Care Code Est Pt Level 3 (54805) Diagnoses Diabetes mellitus type 2, insulin dependent E11.9; Z79.4 History of pancreatectomy Z90.410
[2024-07-26 12:56] LABS: Glucose, Whole Blood 284 mg/dL (60-115)
== END 2024-07-26 13:33 | disposition home or self-care (01) ==
PROVIDERS: PCP Physician Assistant Medical; Visit Provider Internal Medicine
DX: E11.9 Type 2 diabetes mellitus without complications (principal); Z79.4 Long term (current) use of insulin; Z90.410 Acquired total absence of pancreas

== ENCOUNTER → 2024-07-26 12:29 | Outpatient (BNVA) | payer MEDICARE, SELFPAY | PROVIDERS: PCP Physician Assistant Medical; Visit Provider Internal Medicine | DX: E11.9 Type 2 diabetes mellitus without complications (principal); R80.9 Proteinuria, unspecified; Z85.07 Personal history of malignant neoplasm of pancreas; Z90.410 Acquired total absence of pancreas; Z79.4 Long term (current) use of insulin; Z79.84 Long term (current) use of oral hypoglycemic drugs | CPT/HCPCS: 82947; 99212 ==

== ENCOUNTER 2024-07-31 13:32 | Outpatient (AMB) | payer MEDICARE, SELFPAY ==
--- NOTE | 2024-07-31 13:47 | MHC.PC.OV ---
Vital Signs 07/31/24 13:51 Height 5 ft 4.7 in Weight 163 lb 6 oz BMI 27.4 BP 132/70 Blood Pressure Location Rt brachial Position Sitting Respiration 13 Pulse 76 Pulse Source Pulse Oximeter Pulse Oximetry (%) 97 Oxygen Delivery Method Room Air Intake Visit Reasons: 30 min complex follow up Intake Note: routine follow up Hand Salter Required: No Allergies No Known Allergies [No Known Allergies*] Allergy (Verified 07/31/24 13:48) Tobacco use date assessed: 03/27/24 Fall risk assessment: No Falls in past year Last assessed Fall Risk: 07/31/24 Dental Screening Dental Screen Date: 03/27/24 Did you have a dental visit in the last 12 months?: Yes Did you have a dental problem in the last 6 months where you did not have access to dental care?: No Was dental information given to patient?: Patient has dentist HPI HPI Comments History of Present Illness Details This is a 69-year-old male with a past medical history of pancreatic cancer in remission s/p Whipple 2018, depression, GERD, chronically elevated LFTs, insulin-dependent type 2 diabetes, sleep apnea on CPAP, hyperlipidemia and prostate cancer presenting for follow up. He is here with his . Pancreatic cancer-2018 [place], sees Dr. Reyes annually. He has a visit in August 2024. Denies abdominal pain, nausea, vomiting or unexplained weight loss. On chronic PPI following Whipple. Prostate cancer-diagnosed 2023. He sees Dr. Joy. Completed radiation therapy at [facility]. He has follow up with Urology in September. Type 2 diabetes mellitus-diagnosed prior to having prostate cancerand [place], but patient says he was not on medications for it until after this. Dr. Carrasquillo is eye doctor. He has bilateral cataracts. Patient followed by Dr. Louis in endocrinology. He says it has been very difficult to control his diabetes so he will be meeting with providers there in preparation for an insulin pump. Per sensor BG is 360 today. He is eating ice cream. He does not drink alcohol. The patient's liver enzymes were elevated on his last labs so I previously reviewed his records from [facility]. Records stated he had an ultrasound indicating a need for a GI evaluation. 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 It says he had an ERCP 12/29/2019 due to elevated liver enzymes and abdominal ultrasound showed hepatic steatosis with a cyst. He has an upcoming appointment with [facility] gastroenterology 09/21/23 at [place]. Depression treated with sertraline 50 mg daily. He feels like this is working well though he does have a lot of stress around his health issues. ROS: Constitutional: No unexplained weight loss, fever, chills or night sweats. Eyes: No vision changes, blurry vision, double vision, eye pain, eye redness, eye discharge. Respiratory: No shortness of breath, cough or sputum production. Cardiovascular: No chest pain, chest pressure or chest discomfort. No palpitations or pedal edema. Gastrointestinal: No anorexia, nausea, vomiting or diarrhea. No abdominal pain or blood in stool. Neurologic: No headache, dizziness, syncope, unilateral weakness, ataxia, numbness or tingling in the extremities. Skin: No rash Endocrine: No cold or heat intolerance. Psychiatric: No increased depressive symptoms. Physical exam: Constitutional: Alert, in no distress. Eyes: Pupils are equal, round and reactive to light. Extraocular muscles intact. Neck: Supple, Full range of motion. No lymphadenopathy. Respiratory: Clear to auscultation. Cardiovascular: S1 S2 regular. No murmurs. Musculoskeletal: No gross deformities. Normal range of motion. Extremities: Warm and well perfused. No clubbing, cyanosis or edema. Psychiatric: Normal mood and affect Feet: Patient has calluses on the bottom of his feet. [facility] Medical History Hepatic steatosis Elevated LFTs Microalbuminuria Diabetes mellitus type 2, insulin dependent Prostate cancer Depression GERD (gastroesophageal reflux disease) Hypercholesterolemia Pancreatic cancer Sleep apnea HTN (hypertension) DVT (deep venous thrombosis) Elevated cholesterol Diabetes Surgical History History of partial pancreatectomy H/O colonoscopy History of laparotomy Hx of hemorrhoidectomy Hx of appendectomy History of Whipple procedure Social History Household Members: Spouse Housing: House Patient Tobacco Use Status: Former Tobacco user Tobacco use type: Cigarette Cigarette Packs Per Day: 3 Years Smoked: 15 quit in 1989 e-Cigarette/Vaping Use: Never Used Second Hand Smoke Exposure: No service: No Current occupational status: retired Cognitive needs: No Hearing needs: Yes (hearing aid) Vision needs: Yes (glasses) Questionnaire PHQ-9 Over the last 2 weeks, how often have you been bothered by any of the following problems? 1. Little interest or pleasure in doing things: not at all 2. Feeling down, depressed, or hopeless: not at all 3. Trouble falling or staying asleep, or sleeping too much: not at all 4. Feeling tired or having little energy: not at all 5. Poor appetite or overeating: not at all 6. Feeling bad about yourself - or that you are a failure or have let yourself or your family down: not at all 7. Trouble concentrating on things, such as reading the newspaper or watching television: not at all 8. Moving or speaking so slowly that other people could have noticed. Or the opposite - being so fidgety or restless that you have been moving around a lot more than usual: not at all 9. Thoughts that you would be better off or of hurting yourself in some way: not at all Total score: 0 [id number] - PHQ-9 Billing: Patient declined-do not bill Source: Developed by Drs. Amadou Hanna, Breann Murillo, Mahamed Lynn and colleagues, with an educational shawna from [employer]. Thrive Questionnaire Date Thrive assessed: 07/31/24 I am a: Patient What is your living situation today?: I have a steady place to live Within the past 12 months, did the food you bought not last and you didn't have the money to get more?: I choose not to answer this question Within the past 12 months, did you worry whether your food would run out before you got money to buy more?: I choose not to answer this question Do you have trouble paying for medicines?: Yes Do you have trouble getting transportation to medical appointments?: No Do you have trouble paying your heating and electricity bill?: No Do you have trouble taking care of your child, family member or friend?: No Do you have trouble with day-to-day activities such as bathing, preparing meals, shopping, managing finances, etc.?: No Are you currently unemployed and looking for a job?: No Are you interested in more education?: No Please select the resources that you would like help with: Paying for medicine Currently or been in a relationship where the following occur: No concerns reported THRIVE Score: 0 AUDIT C Alcohol Use Questionnaire (AUDIT-C) 1. How often do you have a drink containing alcohol?: Never Total Score: 0 TERRI-7 AMB Questionnaire TERRI-7 Date TERRI - 7 assessed: 07/31/24 Feeling nervous, anxious, or on edge: 0 = Not at all Not being able to stop or control worryin = Several days Worrying too much about different things: 1 = Several days Trouble relaxin = Not at all Being so restless that it is hard to sit still: 0 = Not at all Becoming easily annoyed or irritable: 0 = Not at all Feeling afraid as if something awful might happen: 0 = Not at all Total TERRI-7 score (0-4 normal; 5-9 mild; 10-14 moderate; 15-21 severe): 2 Source: Developed by Drs. Amadou Hanna, Breann Murillo, Mahamed Lynn and colleagues, with an educational shawna from [employer]. TERRI-7 Assessment Billing TERRI-7 Assessment Tool: TERRI-7 Assessment 39697 Physical exam (Primary Care) Vital Signs: Last Vital Signs Pulse 76 07/31/24 13:51 Resp 13 07/31/24 13:51 BP 132/70 07/31/24 13:51 Pulse Ox 97 07/31/24 13:51 Oxygen Delivery Method Room Air 07/31/24 13:51 BMI result Body Mass Index 27.4 Tobacco/Smoking Status: Tobacco use Status Tobacco use date assessed 03/27/24 07/31/24 13:54 Patient Tobacco Use Status Former Tobacco user 07/31/24 13:54 Tobacco use type Cigarette 07/31/24 13:54 e-Cigarette/Vaping Use Never Used 07/31/24 13:54 PHQ-9: PHQ-9 Score PHQ-9: Total score 0 07/31/24 13:54 Thrive Assessment: Date of Thrive Assessment Date Thrive assessed 07/31/24 07/31/24 13:54 Currently or been in a relationship where the following occur: No concerns reported Coding Level of Care Code Est Pt Level 4 (98628) Complex EM visit Add On G2211 Diagnoses Diabetes mellitus type 2, insulin dependent E11.9; Z79.4 Elevated LFTs R79.89 Hepatic steatosis K76.0 Microalbuminuria R80.9 Obstructive sleep apnea syndrome G47.33 Sleep apnea type: obstructive Hypercholesterolemia E78.00 Prostate cancer C61 Malignant neoplasm of pancreas, unspecified location of malignancy C25.9 Pancreatic malignancy location: unspecified Additional Codes TERRI-7 Assessment Billing - TERRI-7 Assessment Tool: TERRI-7 Assessment 21733 ([id number]) Assessment & Plan Assessment & Plan (1) Diabetes mellitus type 2, insulin dependent: Code(s): E11.9 - Type 2 diabetes mellitus without complications; Z79.4 - terminal superintendent (current) use of insulin Category: Medical (2) Elevated LFTs: Code(s): R79.89 - Other specified abnormal findings of blood chemistry Category: Medical (3) Hepatic steatosis: Code(s): K76.0 - Fatty (change of) liver, not elsewhere classified Category: Medical (4) Microalbuminuria: Code(s): R80.9 - Proteinuria, unspecified Category: Medical (5) Sleep apnea: Comment: uses CPAP Code(s): G47.30 - Sleep apnea, unspecified Category: Medical Qualifiers: Sleep apnea type: obstructive Qualified Code(s): G47.33 - Obstructive sleep apnea (adult) (pediatric) (6) Hypercholesterolemia: Code(s): E78.00 - Pure hypercholesterolemia, unspecified Category: Medical (7) Prostate cancer: Code(s): C61 - Malignant neoplasm of prostate Category: Medical (8) Pancreatic cancer: Code(s): C25.9 - Malignant neoplasm of pancreas, unspecified Category: Medical Qualifiers: Pancreatic malignancy location: unspecified Qualified Code(s): C25.9 - Malignant neoplasm of pancreas, unspecified Plan In summary this is a 69-year-old male with a complex past medical history who presented for follow up today. He will follow up as scheduled with endocrinology. Plan is to start insulin pump. He will continue with his current medication regimen per endocrinology for now. Refer to podiatry for calluses on his feet. He stays up-to-date with eye exams. Reviewed diabetic diet as he has been eating ice cream regularly. Reviewed treatment of hypoglycemia and sent glucose tablets to the pharmacy. Patient has an appointment with Gastroenterology in September to follow up for elevated liver enzymes/hepatic steatosis. He does not drink alcohol. Recommended Mediterranean diet. He is on a statin. Last LDL was at goal. He completed radiation therapy for prostate cancer, and he has a follow up in September with Dr. Ridley. No known recurrence of pancreatic cancer. He sees Dr. Reyes in August. Patient will have lab work done in September prior to his next appointment. Orders: Orders Vitamin B12 09/27/24 E11.9 - Type 2 diabetes mellitus without complications, Z79.4 - jail (current) use of insulin Hemoglobin A1c 09/27/24 E11.9 - Type 2 diabetes mellitus without complications, Z79.4 - terminal superintendent (current) use of insulin Comprehensive Met. Panel 09/27/24 E11.9 - Type 2 diabetes mellitus without complications, Z79.4 - terminal superintendent (current) use of insulin Magnesium 09/27/24 E11.9 - Type 2 diabetes mellitus without complications, Z79.4 - terminal superintendent (current) use of insulin Referrals Podiatry Referral L84 - Corns and callosities Medications: New glucose (Dex4 Glucose Quick Dissolve) until symptoms of low blood sugar are controlled 16 grams (4 x 4 gram) PO Q15M PRN 10 tabs 3RF hypoglycemia Patient Instructions: If you experience low blood sugar, treat this by eating a chewable fruit candy like skittles or jelly beans (about 8 pieces), 4 ounces (1/2 cup) of fruit juice (not diet), 1 tablespoon of honey or 4 glucose tablets. If your blood sugar is under 50, take double the amount of one of the above. Recheck your blood sugar in 15 minutes.
[2024-07-31 13:51] VITALS: BP 132/70; PULSE 76; RESP 13; O2SAT 97; BMI 27.4
== END 2024-07-31 14:36 | disposition home or self-care (01) ==
PROVIDERS: PCP Physician Assistant Medical; Visit Provider Physician Assistant Medical
DX: E11.9 Type 2 diabetes mellitus without complications (principal); Z79.4 Long term (current) use of insulin; C61 Malignant neoplasm of prostate; C25.9 Malignant neoplasm of pancreas, unspecified; R79.89 Other specified abnormal findings of blood chemistry; K76.0 Fatty (change of) liver, not elsewhere classified; R80.9 Proteinuria, unspecified; G47.33 Obstructive sleep apnea (adult) (pediatric); E78.00 Pure hypercholesterolemia, unspecified

== ENCOUNTER → 2024-07-31 13:32 | Outpatient (BNVA) | payer MEDICARE, SELFPAY | PROVIDERS: PCP Physician Assistant Medical; Visit Provider Physician Assistant Medical | DX: E11.9 Type 2 diabetes mellitus without complications (principal); Z79.4 Long term (current) use of insulin; R79.89 Other specified abnormal findings of blood chemistry; K76.0 Fatty (change of) liver, not elsewhere classified; R80.9 Proteinuria, unspecified; G47.33 Obstructive sleep apnea (adult) (pediatric); E78.00 Pure hypercholesterolemia, unspecified; C61 Malignant neoplasm of prostate; C25.9 Malignant neoplasm of pancreas, unspecified | CPT/HCPCS: 96127; 99212 ==

== ENCOUNTER 2024-08-15 10:22 | Outpatient (AMB) | payer MEDICARE, SELFPAY ==
--- NOTE | 2024-08-15 10:51 | MHC.AMDMED ---
Intake Intake Visit Reasons: 60 min Accompanied by: Self / Same As Patient Allergies No Known Allergies [No Known Allergies*] Allergy (Verified 07/31/24 13:48) HPI Comprehensive Diabetes Asmnt Most Recent Diabetes Results: Microalb/Creat Ratio 36.2 ug/mg cr (<30) H 03/28/24 Cholesterol 89 mg/dL (<200) 03/28/24 HDL Cholesterol 30 mg/dL (>40) L 03/28/24 Triglycerides 81 mg/dL (<150) 03/28/24 Creatinine 0.84 mg/dL (0.5-1.4) 03/28/24 Blood Urea Nitrogen 12 mg/dL (9-16) 03/28/24 Sodium 144 mmol/L (135-145) 03/28/24 Potassium 3.6 mmol/L (3.3-5.1) 03/28/24 Chloride 107 mmol/L (96-108) 03/28/24 Carbon Dioxide 32 mmol/L (22-29) H 03/28/24 Calcium 8.6 mg/dL (8.4-10.2) 03/28/24 AST 95 U/L (5-37) H 06/15/24 ALT 59 U/L (0-40) H 06/15/24 Total Protein 6.0 g/dL (6.5-8.0) L 06/15/24 Albumin 3.7 g/dL (3.5-5.0) 06/15/24 [facility] Medical History (Updated 07/31/24 @ 14:16 by PAWAN Earl) Callus of foot Hepatic steatosis Elevated LFTs Microalbuminuria Diabetes mellitus type 2, insulin dependent Prostate cancer Depression GERD (gastroesophageal reflux disease) Hypercholesterolemia Pancreatic cancer Sleep apnea HTN (hypertension) DVT (deep venous thrombosis) Elevated cholesterol Diabetes Surgical History (Updated 07/26/24 @ 14:29 by Meenakshi Louis MD) History of partial pancreatectomy H/O colonoscopy History of laparotomy Hx of hemorrhoidectomy Hx of appendectomy History of Whipple procedure Social History Household Members: Spouse Housing: House Patient Tobacco Use Status: Former Tobacco user Tobacco use type: Cigarette Cigarette Packs Per Day: 3 Years Smoked: 15 quit in 1989 e-Cigarette/Vaping Use: Never Used Second Hand Smoke Exposure: No service: No Current occupational status: retired Cognitive needs: No Hearing needs: Yes (hearing aid) Vision needs: Yes (glasses) Assessment & Plan Assessment & Plan (1) Diabetes mellitus type 2, insulin dependent: Code(s): E11.9 - Type 2 diabetes mellitus without complications; Z79.4 - group home (current) use of insulin Plan: Pump Assessment: Type of DM: Type 2 with whipple in 2019 Previous DKA: no Current Insulin Rx: MDI Patient takes insulin as prescribed: yes Patient? checks BG Dexcom G6 Downloaded meter today: yes Patient? reports glycemic control as: poor Most recent Hgb A1C: 10.4% 06/2024 Frequency of low BG: rarely Low BG treatment: glucose tabs Frequency of high BG:daily Does patient check Ketones? no Has pt been on a pump in the past? No Reviewed insulin pump basics today with Patient. Explained pros and cons of insulin pumps. Showed pt various pumps, infusion sets, and cgms currently available. Reviewed need to wear pump 24/ and need to change infusion set every 3 days. Also stressed importance of frequent BG checks, 4x daily minimum or use pump that is integrated with CGM.? TDD:48 units Patient demonstrated motivation for continued insulin pump education and understands the need to complete education prior to starting insulin pump for best outcome. Pt has selected the iLet Patient given pre pump training checklist today's visit Portions of this note were created using voice recognition software, please excuse any words or phrases that may have been misinterpreted. Patient Instructions: DIABETES PROBLEMS HOMECARE INSTRUCTIONS? for High Blood Sugar and When to Test for Ketones Hyperglycemia is the technical term for high blood glucose (blood sugar). High blood sugar happens when the body has too little insulin or when the body can't use insulin properly. What causes hyperglycemia? A number of things can cause hyperglycemia: If you have type 1, you may not have given yourself enough insulin. ? If you have type 2, your body may have enough insulin, but it is not as effective as it should be. You ate more than planned or exercised less than planned. You have stress from an illness, such as a cold or flu. You have other stress, such as family conflicts or school or dating problems. How to lower your blood sugar level. ? Take medications as directed by physician. ? Drink extra water or noncaffeinated, nonsugared drinks to prevented hydration. ? Exercise if you are not sick However, if your blood sugar is above 250 mg/dl, check your urine for ketones. If you have ketones, do not exercise Exercising when ketones are present may make your blood sugar level go even higher. You'll need to work with your doctor to find the safest way for you to lower your blood sugar level. Regularly check blood sugar or urine for sugar and acetone during illness. Diabetic ketoacidosis (DKA) Is serious condition that can lead to diabetic coma (passing out for a long time) or even . When your cells don't get the glucose they need for energy, your body begins to burn fat for energy, which produces ketones. Ketones are chemicals that the body creates when it breaks down fat to use for energy. The body does this when it doesn?t have enough insulin to use glucose, the body?s normal source of energy. When ketones build up in the blood, they make it more acidic. They are a warning sign that your diabetes is out of control or that you are getting sick. Symptoms of Diabetic Ketoacidosis (DKA) ? DKA usually develops slowly. But when vomiting occurs, this life-threatening condition can develop in a few hours. Early symptoms include the following: ? Thirst or a very dry mouth ? Frequent urination ? High blood glucose (blood sugar) levels ? High levels of ketones in the urine ? Then, other symptoms appear: ? Constantly feeling tired ? Dry or flushed skin ? Nausea, vomiting, or abdominal pain ? (Vomiting can be caused by many illnesses, not just ketoacidosis. If vomiting continues for more than 2 hours, contact your health care provider.) ? Difficulty breathing ? Fruity odor on breath ? A hard time paying attention, or confusion When should you test for ketones? It is advisable to check for ketones under the following conditions when: Your blood glucose is higher than 250mg/dl. Feeling nauseated, throwing up, or have pains in your abdominal region. Have a cold or flu. Have general body fatigue. Feel thirsty or have a very dry mouth. Have flushed skin. Have a fruity breath or a hard time breathing. You feel perplexed or in fog. How to Test Urine for Ketones You can detect ketones with a simple urine test using a test strip, similar to a blood testing strip. Ask your health care provider when and how you should test for ketones. Many experts advise to check your urine for ketones when your blood glucose is more than 250 mg/dl. When you are ill (when you have a cold or the flu, for example), check for ketones every 4 to 6 hours. And check every 4 to 6 hours when your blood sugar is more than 250 mg/dl. Also, check for ketones when you have any symptoms of DKA. How to lower your blood sugar level. ? Take medications as directed by physician. ? Drink extra water or noncaffeinated, nonsugared drinks to prevented hydration. ? Exercise if you are not sick However, if your blood sugar is above 250 mg/dl, check your urine for ketones. If you have ketones, do not exercise Exercising when ketones are present may make your blood sugar level go even higher. You'll need to work with your doctor to find the safest way for you to lower your blood sugar level. Regularly check blood sugar or urine for sugar and acetone during illness Coding Level of Care Code Est Pt Level 1 (47290) Diagnoses Diabetes mellitus type 2, insulin dependent E11.9; Z79.4
== END 2024-08-15 11:26 | disposition home or self-care (01) ==
PROVIDERS: PCP Physician Assistant Medical; Visit Provider Registered Nurse Diabetes Educator
DX: E11.9 Type 2 diabetes mellitus without complications (principal); Z79.4 Long term (current) use of insulin

== ENCOUNTER → 2024-08-15 10:22 | Outpatient (BNVA) | payer MEDICARE, SELFPAY | PROVIDERS: PCP Physician Assistant Medical; Visit Provider Registered Nurse Diabetes Educator | DX: E11.9 Type 2 diabetes mellitus without complications (principal); Z79.4 Long term (current) use of insulin | CPT/HCPCS: 99211 ==

== ENCOUNTER 2024-08-31 12:01 | Outpatient (AMB) | payer MEDICARE, SELFPAY ==
--- NOTE | 2024-08-31 11:00 | A.OFFVIS_ITS ---
Vital Signs 08/31/24 12:35 Height 5 ft 4.7 in Weight 165 lb 5.547 oz BMI 27.8 BP 132/74 Blood Pressure Location Rt brachial Position Sitting Pulse 72 Pulse Source Pulse Oximeter Intake Visit Reasons: DM- per o'dupont Intake Note: Patient presents today to for a follow-up on Type 2 Diabetes Mellitus: Last Diabetic eye exam was on: 03/09/2024, No Retinopathy Last Podiatry exam was on: Does not see a Motion Picture Set Grip Most recent HbA1c: 10.4%, 06/22/2024 Random Glucose- 280 mg/dL, Today English As A Second Language Instructor Required: No Accompanied by: Self / Same As Patient Allergies No Known Allergies [No Known Allergies*] Allergy (Verified 08/31/24 12:36) Medication List - Last Reconciled 08/31/24 by Jackie Kerns NP aspirin 81 mg PO DAILY atorvastatin 40 mg PO DAILY BD Ultra-Fine Bianca Pen Needle (pen needle, diabetic) Four times times daily NS blood sugar diagnostic (OneTouch Verio test strips) once daily cholecalciferol (vitamin D3) 25 mcg PO DAILY Dexcom G6 Sensor (blood-glucose sensor) Apply one new sensor every 10 days. NS ferrous sulfate 325 mg PO BID 90 days glucose (Dex4 Glucose Quick Dissolve) 16 grams (4 x 4 gram) PO Q15M PRN insulin degludec (Tresiba FlexTouch U-100 insulin) 16 units (0.16 mL) subcut BEDTIME 90 days Ketone Urine Test (acetone (urine) test) once daily NS Lantus Solostar U-100 Insulin (insulin glargine) 16 units (0.16 mL) subcut .nightly NS oqkyaf-aekcicdt-dzfjfox 6,000-19,000 -30,000 unit (Creon) TAKE 1 CAPSULE BY MOUTH THREE TIMES DAILY WITH EACH MEAL directed magnesium 250 mg PO DAILY metformin 1,000 mg PO BID 90 days Novolog FlexPen U-100 Insulin (insulin aspart U-100) 1 sliding scale dose subcut USEASDIRECTD NS omeprazole 40 mg PO DAILY OneTouch Delica Plus Lancet (lancets) once daily NS OneTouch Verio Flex meter (blood-glucose meter) once daily NS sertraline 50 mg PO DAILY tamsulosin 0.4 mg PO DAILY vitamin B complex 1 tab PO DAILY HPI Comments Details: This is a 69-year-old male with a past medical history of pancreatic cancer in remission s/p Whipple 2019,diabetes presenting for diabetes visit. He was initially seen by Dr. Perez. He has been seen by Cierra HARDEN in his preparing to go on a islet insulin pump. Insurance is requiring glucose and C- peptide PMHx: prostate ca, pancreatic cancer s/p whipple, depression, GERD, sleep apnea on CPAP, hyperlipidemia Current prescriptions: Lantus 16 units, humalog-see below, metformin 1000mg twice daily. He has had some overnight lows. He responds appropriately to snack/juice. A1C / 10.4% Humalog with breakfast and lunch Less than 80- 150 mg/dL 6 units 151-200 mg/dL 8 units 201- 350 mg/dL 10 units Greater 351 mg/dL 12 units With dinner take 6 units Dexcom average glucose: 287 14 day continuous glucose monitor report reviewed Glucose Managment indicator 10.2 % Days with CGM data 93 % TIme in ranges: 64 % very high (above 250) 16 % high ?(181-250) 20 % in range ?(70-180] 0 % low (69-55) Less than 1 % ?very low (below 54) 101 Standard Deviation Interpretation [ patient consistently starts at been diet close to 280 and gradually drops down by 07:00 280 after breakfast he rises in from lunchtime to bedtime he is in the 300 range] Dr. Carrasquillo is eye doctor. He has bilateral cataracts. eye exam scheduled for 10/10 has done yearly No perioperative educator Type 2 diabetes mellitus-diagnosed prior to having prostate cancer and Whipple, but patient says he was not on medications for it until after this. [facility] Medical History Callus of foot Hepatic steatosis Elevated LFTs Microalbuminuria Diabetes mellitus type 2, insulin dependent Prostate cancer Depression GERD (gastroesophageal reflux disease) Hypercholesterolemia Pancreatic cancer Sleep apnea HTN (hypertension) DVT (deep venous thrombosis) Elevated cholesterol Diabetes Surgical History History of partial pancreatectomy H/O colonoscopy History of laparotomy Hx of hemorrhoidectomy Hx of appendectomy History of Whipple procedure Social History Household Members: Spouse Housing: House Patient Tobacco Use Status: Former Tobacco user Tobacco use type: Cigarette Cigarette Packs Per Day: 3 Years Smoked: 15 quit in 1989 e-Cigarette/Vaping Use: Never Used Second Hand Smoke Exposure: No service: No Current occupational status: retired Cognitive needs: No Hearing needs: Yes (hearing aid) Vision needs: Yes (glasses) Physical Exam Vital Signs: Last Vital Signs Pulse 72 08/31/24 12:35 BP 132/74 08/31/24 12:35 BMI result Body Mass Index 27.8 Const Other: Absence of Cushingoid features. Absence of acromegalic features. Neck exam reveals nl size thyroid about 15 gms. No thyroid nodules palpable. No carotid bruits present. Lungs CTA. Heart S1 S2, Reg R/R. No M/R G. Skin exam reveals absence of vitiligo or acanthosis nigricans. No edema Office Procedures Glucose Monitoring Details 63483 - Glucose monitoring, continuous-physician I&R Procedure code (CPT) selection complete Results Reviewed Results Reviewed: Laboratory Last Values Glucose (Clinic) 280 mg/dL (60-115) H 08/31/24 12:38 Assessment & Plan Assessment & Plan (1) Diabetes: Comment: insulin dependent Code(s): E11.9 - Type 2 diabetes mellitus without complications Category: Medical Qualifiers: Diabetes mellitus complication status: without complication Diabetes mellitus nursing home insulin use: without nursing home use Diabetes mellitus type: type 2 Qualified Code(s): E11.9 - Type 2 diabetes mellitus without complications Plan: 69-year-old with insulin deficiency since Whipple for pancreatic cancer 5 years ago. Most recent A1c in June was 10.4. Glucose sensor reflects that Lantus is wearing off by mid day and then he is not in on enough pre meal insulin for lunch and supper. He is preparing to go on an islet insulin pump which should smooth out his numbers. C-peptide and fasting glucose ordered For now he should split insulin Lantus dose 10 in the morning and 8 at night. He has at least some months worth of Lantus when that is finished he will switch over to to Tresiba once daily 16 units. Humalog scale before breakfast and lunch 80-150 8 units 151-200 10 units 201-300 12 units over 300 14 units humalog 6 units for supper Orders: Orders C Peptide 1 Day E11.9 - Type 2 diabetes mellitus without complications Glucose Fasting 1 Day E11.9 - Type 2 diabetes mellitus without complications AMB Glucose Monitoring Today E11.9 - Type 2 diabetes mellitus without complications Medications: New insulin degludec (Tresiba FlexTouch U-100 insulin) 16 units (0.16 mL) subcut BEDTIME 15 mL 3RF 90 days Patient Instructions: Symptoms of DKA (diabetic ketoacidosis): early: frequent urination, dry mouth, fatigue, feeling ill, severe symptoms: ketones in the urine, abdominal pain, nausea, vomiting and weakness. It is important to hydrate with sugar free liquids every 15-30 minutes and bring the sugars down to normal levels. If you are moderate or severe with ketones or unable to bring glucose to less than 200, go to the emergency room. Patient brought in ketone strips today an at length reviewed protocol. Troubleshooting after starting new pod or inserting new insulin set: Occlusion Check BG 2 hours after site change Safety information: proper prescriptions and emergency supplies ketone strips, and rules for testing for ketone Need for q.4 hour blood glucose sticks if he is not on a sensor Coding Level of Care Code Est Pt Level 5 (27578) Diagnoses Type 2 diabetes mellitus without complication, without long-term current use of insulin E11.9 Diabetes mellitus complication status: without complication Diabetes mellitus manager search insulin use: without manager search use Diabetes mellitus type: type 2 CPT Codes Details - CPT: 96122 - Glucose monitoring, continuous-physician I&R ([id number]) Time Spent (min) 45 Comment Time spent reviewing labs/provider notes, glucose,sensor reports, face to face, chart doc
[2024-08-31 12:35] VITALS: BP 132/74; PULSE 72; BMI 27.8
[2024-08-31 12:43] LABS: Glucose, Whole Blood 280 mg/dL (60-115)
== END 2024-08-31 13:23 | disposition home or self-care (01) ==
PROVIDERS: PCP Physician Assistant Medical; Visit Provider Nurse Practitioner Adult Health
DX: E11.9 Type 2 diabetes mellitus without complications (principal)
CPT/HCPCS: 95251; 99215

== ENCOUNTER → 2024-08-31 12:01 | Outpatient (BNVA) | payer MEDICARE, SELFPAY | PROVIDERS: PCP Physician Assistant Medical; Visit Provider Nurse Practitioner Adult Health | DX: E11.9 Type 2 diabetes mellitus without complications (principal); Z79.4 Long term (current) use of insulin; Z79.84 Long term (current) use of oral hypoglycemic drugs; Z85.07 Personal history of malignant neoplasm of pancreas | CPT/HCPCS: 82947; 99212 ==

== ENCOUNTER 2024-09-11 09:39 | Outpatient (REF) | payer MEDICARE, SELFPAY ==
[2024-09-11 11:47] LABS: Estimated Average Glucose 243 mg/dL; Hemoglobin A1C 330.7834 umol/L; Hemoglobin A1c % 10.1 % (<6.0); Total Hemoglobin (HGBA1C) 3829.6093 umol/L
[2024-09-11 12:05] LABS: Alanine Aminotransferase 92 U/L (0-40); Albumin Level 3.8 g/dL (3.5-5.0); Alkaline Phosphatase 131 U/L (39-117); Anion Gap 9 (12-20); Aspartate Amino Transferase 44 U/L (5-37); Bilirubin Total 0.6 mg/dL (0.0-1.0); Blood Urea Nitrogen 6 mg/dL (9-16); Calcium 8.4 mg/dL (8.4-10.2); Carbon Dioxide 27 mmol/L (22-29); Chloride 110 mmol/L (96-108); Estimated Glomerular Filt Rate > 60; Glucose Fasting 221 mg/dL (60-99); Glucose Random 219 mg/dL (60-115); Magnesium 1.8 mg/dL (1.6-2.6); Potassium 3.8 mmol/L (3.3-5.1); Sodium 142 mmol/L (135-145); Total Protein 6.4 g/dL (6.5-8.0)
[2024-09-11 12:24] LABS: Prostate Specific Antigen 1.95 ng/mL (<0.05-4.0)
[2024-09-11 12:29] LABS: Vitamin B12 992 pg/mL (200-900)
--- OUTSIDE RECORDS SUMMARY | 2024-09-11 14:06 | XMS_ITS | Clinical Summary ---
Author Organization [facility] Address [address] [place] [phone] Phone Care Team Providers Care Transfer And Line Up Worker Name Role Phone Maritza Rivera Primary Care Provider [phone] Allergies Active Allergy Reactions Criticality Noted Date Comments Adhesive Tape-Silicones 06/19/2024 Medications Medication Sig Dispensed Refills Start Date End Date Status tamsulosin (FLOMAX) 0.4 mg 24 hr capsule Take 1 capsule (0.4 mg total) by mouth 1 (one) time each day. Active sertraline (ZOLOFT) 50 mg tablet Take 1 tablet (50 mg total) by mouth 1 (one) time each day. Active oxyCODONE-acetaminophe n (PERCOCET) 5-325 mg per tablet Take 1 tablet by mouth every 4 (four) hours if needed for severe pain or moderate pain. Max Daily Amount: 6 tablets 03/24/2024 Active metFORMIN (GLUCOPHAGE) 1,000 mg tablet Take 1 tablet (1,000 mg total) by mouth 1 (one) time each day with breakfast. Active magnesium oxide 250 mg magnesium tablet Take 1 tablet (250 mg total) by mouth 1 (one) time each day. Active insulin glargine (LANTUS) 100 unit/mL injection Inject 15 Units under the skin at bedtime. Active ferrous sulfate 325 mg (65 mg elemental iron) tablet Take 1 tablet (325 mg total) by mouth 2 (two) times a day. Active cholecalciferol (VITAMIN D-3) 50 mcg (2,000 unit) capsule Take 50 mcg by mouth. Active atorvastatin (LIPITOR) 40 mg tablet Take 1 tablet (40 mg total) by mouth. Active B complex tablet Take 400 mcg by mouth 1 (one) time each day. Active omeprazole (PriLOSEC) [address] capsule Take 2 capsules (40 mg total) by mouth 1 (one) time each day. Active Dexcom G6 Sensor device 05/31/2024 Active Dexcom G6 Transmitter device USE DIRECTED FOR 30 DAYS 07/01/2024 Active Gemtesa 75 mg tablet tablet Take 1 tablet (75 mg total) by mouth 1 (one) time each day. 07/05/2024 Active BD Bianca 2nd Gen Pen Needle 32 gauge x 5/32 needle USE TO INJECT FOUR TIMES DAILY 06/08/2024 Active pantoprazole (PROTONIX) 40 mg EC tablet Take 1 tablet (40 mg total) by mouth 1 (one) time each day. 08/11/2023 Active Creon 6,000-19,000 -30,000 unit capsule TAKE ONE CAPSULE BY MOUTH THREE TIMES DAILY WITH EACH MEAL DIRECTED 04/23/2024 Active NovoLOG Flexpen U-100 Insulin 100 unit/mL (3 mL) injection pen 06/28/2024 Active Active Problems Problem Noted Date Diagnosed Date Prostate cancer 06/27/2024 Cancer Staging:Clinical:Stage IIIB(cT3a, cN0, cM0, PSA: 2, Grade Group: 1) - Signed by Edward Webber MD on 07/18/2024 Neuroendocrine carcinoma of pancreas Encounters Date Type Department Care Team Description 07/18/2024 1:34 PM EST - 07/18/2024 11:59 PM EST Hospital Encounter [facility] Radiation Oncology [address] [place] [phone] Edward Webber MD Prostate cancer (CMS/HCC) (Primary Dx) Discharge Disposition: Home or Self Care 05/29/2024 9:32 AM EDT - 06/15/2024 11:59 PM EDT Hospital Encounter [facility] Hematology Oncology [address] [place] [phone] Edward Webber MD from Last 3 Months Surgical History Surgery Date Site/Laterality Comments WHIPPLE PROCEDURE W/ LAPAROSCOPY CYSTOSCOPY INSERTION / REMOVAL STENT / STONE Medical History Medical History Date Comments Microscopic hematuria Kidney stones BPH (benign prostatic hyperplasia) Hypercholesterolemia Neuroendocrine carcinoma of pancreas (CMS/HCC) Family History Medical History Relation Name Comments Lung cancer Brother Relation Name Status Comments Brother Social History Tobacco Use Types Packs/Day Years Used Date Smoking Tobacco: Former Cigarettes Smokeless Tobacco: Never Tobacco Cessation:Counseling Given: Not Answered Alcohol Use Standard Drinks/Week Comments Not Currently 0 (1 standard drink = 0.6 oz pur e alcohol) Sex and Gender Information Value Date Recorded Sex Assigned at Not on file Gender Identity Not on file Sexual Orientation Not on file Job Start Date Occupation Industry Not on file Not on file Not on file Obstetrics History Last Filed Vital Signs Vital Sign Reading Time Taken Comments Blood Pressure 145/71 07/18/2024 1:59 PM EST Pulse 67 07/18/2024 1:59 PM EST Temperature - - Respiratory Rate - - Oxygen Saturation 97% 07/18/2024 1:59 PM EST Inhaled Oxygen Concentration - - Weight 71.9 kg (158 lb 9.6 oz) 07/18/2024 1:59 P M EST Height - - Body Mass Index - - Plan of Treatment Upcoming Encounters Date Type Department Care Team (Late st Contact Info) Description 10/10/2024 1:30 PM EST Office Visit Orthopedic Surgery - [place] [id number] [phone] Johnny Renteria, DPM [address] [address] Health Maintenance Due Date Last Done Comments Diabetes: Annual GFR (Glomerular Filtration Rate) 1955 Diabetes: Annual Foot Exam 1965 Diabetes: Annual Retina Eye Exam 1965 Zoster Vaccines (1 of 2) 1974 Pneumococcal Vaccine: 65+ Years (2 of 2 - PCV) 09/07/2012 09/07/2011 Abdominal Aortic Aneurysm (AAA) Screen 05/23/2024 Cholesterol Screening (Lipid Panel) 05/23/2024 Colorectal Cancer Screening: Colonoscopy 05/23/2024 Depression Screening 05/23/2024 Falls Risk Assessment 05/23/2024 Hepatitis C Screening 05/23/2024 Medicare Annual Wellness Visit 05/23/2024 Social Influencers of Health Screening 05/23/2024 Diabetes: Annual Urine Albumin-Creatinine Ratio (uACR) 07/18/2024 Diabetes: Blood Sugar Control Test (HGBA1C) 07/18/2024 Hypertension/CHF/CAD Annual BMP Blood Test 07/18/2024 DTaP,Tdap,and Td Vaccines (3 - Td or Tdap) 01/02/2030 01/03/2020, 04/06/2000 Meningococcal ACWY Vaccine Aged Out 02/18/2017 N o longer eligible based on patient's age to complete this topic RSV Immunization Patients 60+ Years Old Completed 05/05/2023 COVID-19 Vaccine Completed 04/25/2024, , 04/27/2022, Additional history exists Influenza Vaccine Completed 04/25/2024, , 04/27/2022, Additional history exists HIB Vaccines Aged Out No longer eligi ble based on patient's age to complete this topic HPV Vaccines Aged Out No longer eligi ble based on patient's age to complete this topic Hepatitis A Vaccines Aged Out No long er eligible based on patient's age to complete this topic Hepatitis B Vaccines Aged Out No long er eligible based on patient's age to complete this topic IPV Vaccines Aged Out No longer eligi ble based on patient's age to complete this topic MMR Vaccines Aged Out No longer eligi ble based on patient's age to complete this topic RSV Immunization Patients Under 20 months Aged Out No longer eligible based on patient's age to complete this topic Varicella Vaccines Aged Out No longer eligible based on patient's age to complete this topic Care Teams Transfer And Line Up Worker Relationship Specialty Start Date End Date Maritza Rivera PA [address] [place] [id number] PCP - General Physician Aviation Project Engineer 08/03/24
--- OUTSIDE RECORDS SUMMARY | 2024-09-11 14:06 | XMS_ITS | Patient Health Record ---
Author Organization [facility] Address [address] [place] [address] Care Team Providers Care Heating Mechanic Name Role Phone LARISSA LOAIZA Primary Care Provider Keesha darinzhaneAmadou Ellis Unavailable [phone] ALLERGIES No Known Allergies REASON FOR REFERRAL No Information MEDICATIONS Medication SIG (Take, Route, Frequency, Duration) Notes Start Date End Date Status Vitamin D 1000 UNIT Orally Active Lantus 100 UNIT/ML as directed Subcutaneous Active Sertraline HCl 50 MG 1 tablet Orally Onc e a day for 30 day(s) Active Pantoprazole Sodium 40 MG 1 tablet Orall y Once a day for 30 day(s) Active Lisinopril 20 MG Orally Act aicha Atorvastatin Calcium 80 MG Orally Active Aspirin Adult Low Dose Active IMMUNIZATIONS Vaccine Route Administration Date Status Comme nts Influenza Unknown 07/02/2021 Administered SOCIAL HISTORY Sex Assigned At : Social History Observation Description Sex Assigned At Unknown PROBLEMS Problem Type ICD Code Onset Dates Problem Status W/U Status Risk SNOMED Code Notes Problem History of adenomatous polyp of colon (Z86.010) Active confirmed 661096390 Problem Encounter for screening for malignant neoplasm of colon (Z12.11) Active confirmed 999247645 Problem Encounter for screening for malignant neoplasm of rectum (Z12.12) Active confirmed Screening fo r malignant neoplasm of rectum (943949282) Problem Preprocedural examination (Z01.818) Active confirmed 01997203 Problem Long-term use of aspirin therapy (Z79.82) Active confirmed 061797834 Problem History of colon polyps (Z86.010) Active confirmed History of polyp of colon (266244036) Problem Diverticulosis of colon (K57.30) Active confirmed Diverticulosi s of colon (703083884) PLAN OF TREATMENT Future Test Test Name Order Date COLONOSCOPY 06/04/2016 COLONOSCOPY 12/17/2021 Insurance Providers Payer Name Payer Address Payer Phone Subscriber Number Group Number Insured Name Patient Relationship to Insured Coverage Start Date Coverage End Date [facility] [address] [place], [place] [id number] ALLIE ECHOLS Self - patient is the insured MEDICAL (GENERAL) HISTORY Medical History History ICD Code He has had colonoscopies in 1998 and 2001 with removal of small tubular adenomas; the colonoscopy in 2005 revealed only hyperplastic polyps; and colonoscopy in 2010 was negative other than some nonbleeding angiodysplasias in the cecum and ascending colon, sigmoid diverticulosis, and internal hemorrhoids. Hyperlipidemia Broken leg in 1997 and a subsequent DVT in the right calf--was on Coumadin IDDM since the Whipple Denies [place],CVA,Lung disease,renal disease HTN Sleep apnea-uses CPAP Colonoscopy 08/2016 with 2 sm all tubular adenomas removed, small AVM in ascending colon Pancreatic cancer 2019 with Whipple at [facility]--no chemo nor XRT--had temporary biliary stent placed by ERCP post-op Surgical History Surgery Date(Month/Year) Appy- age 3 Pilonidal cyst Hemmorrhoids Whipple 2019 Abdominal surgery for fistula from the [facility]
[2024-09-12 07:12] LABS: C Peptide 1.22 ng/mL (0.80-3.85)
== END 2024-09-11 09:40 | disposition home or self-care (01) ==
LOC: HO.WFDLDS 09:39
PROVIDERS: Physician Assistant Medical; Referring Provider Nurse Practitioner Adult Health; Visit Provider Physician Assistant Medical
DX: C61 Malignant neoplasm of prostate (principal); E11.9 Type 2 diabetes mellitus without complications; Z79.4 Long term (current) use of insulin; Z12.5 Encounter for screening for malignant neoplasm of prostate
CPT/HCPCS: 36415; 80053; 82607; 82947; 83036; 83735; 84153; 84681

== ENCOUNTER → 2024-09-14 12:14 | Outpatient (BNVA) | payer MEDICARE, SELFPAY | PROVIDERS: PCP Physician Assistant Medical; Visit Provider Nurse Practitioner Adult Health | DX: E11.9 Type 2 diabetes mellitus without complications (principal); Z79.4 Long term (current) use of insulin | CPT/HCPCS: 82947; 99212 ==

== ENCOUNTER 2024-10-09 10:33 | Outpatient (AMB) | payer MEDICARE, SELFPAY ==
--- NOTE | 2024-10-09 11:03 | A.OFFPC_ITS ---
Vital Signs 10/09/24 11:04 Height 5 ft 4.7 in Weight 167 lb 8 oz BMI 28.1 BP 118/62 Blood Pressure Location Lt brachial Position Sitting Pulse 72 Pulse Source Pulse Oximeter Pulse Oximetry (%) 98 Oxygen Delivery Method Room Air Intake Visit Reasons: med review Allergies No Known Allergies [No Known Allergies*] Allergy (Verified 10/09/24 11:08) Tobacco use date assessed: 10/09/24 Fall risk assessment: 1 Fall in past year Last assessed Fall Risk: 10/09/24 Dental Screening Dental Screen Date: 10/09/24 Did you have a dental visit in the last 12 months?: Yes Did you have a dental problem in the last 6 months where you did not have access to dental care?: No Was dental information given to patient?: Patient has dentist HPI HPI Comments History of Present Illness Details This is a 69-year-old male with a past medical history of pancreatic cancer in remission s/p Whipple 2018, depression, GERD, chronically elevated LFTs, insulin-dependent type 2 diabetes, sleep apnea on CPAP, hyperlipidemia and prostate cancer presenting for follow up. He is here with his . Pancreatic cancer-2018 Whipple, sees Dr. Reyes annually. He has a visit Wednesday this week. Denies abdominal pain, nausea, vomiting or unexplained weight loss. On chronic PPI following Whipple. He had a CAT scan and labs last week in preparation for his visit with Dr. Reyes. I will request them. Prostate cancer-diagnosed 2023. He sees Dr. Joy. Completed radiation therapy at [facility]. PSA decreased at follow up this month. Type 2 diabetes mellitus-diagnosed prior to having prostate cancer and Whipple, but patient says he was not on medications for it until after this. Dr. Carrasquillo is eye doctor. He has bilateral cataracts. Patient followed by [facility] endocrinology, and he will be getting an insulin pump. He has a follow up appointment this week with the senior health educator. He does not drink alcohol. Reviewed CGM data today: 56% in range 26% high 17% very high 1% low GMI 7.5% Blood sugar 267 currently. The patient's liver enzymes were elevated on his last labs so I previously reviewed his records from [facility]. Records stated he had an ultrasound indicating a need for a GI evaluation. 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 It says he had an ERCP 12/29/2019 due to elevated liver enzymes and abdominal ultrasound showed hepatic steatosis with a cyst. The patient saw [facility] this month for evaluation of elevated liver enzymes. I will request the records. Depression treated with sertraline 50 mg daily. He feels like this is working well though he does have a lot of stress around his health issues. A week ago the patient was breaking ice up on his driveway, and his right leg slipped out from him about 5 times causing him to over extend it. He did not fall, and he caught himself with that leg. He had a lot of pain in his upper leg immediately, and there was bruising. Pain has reduced by about 50%, and the bruising is fading. He is not having any difficulty walking or standing. It hurts when he is turning over in bed. No numbness, tingling or swelling. ROS: Constitutional: No unexplained weight loss, fever, chills or night sweats. Eyes: No vision changes, blurry vision, double vision, eye pain, eye redness, eye discharge. Respiratory: No shortness of breath, cough or sputum production. Cardiovascular: No chest pain, chest pressure or chest discomfort. No palpitations or pedal edema. Gastrointestinal: No anorexia, nausea, vomiting or diarrhea. No abdominal pain or blood in stool. Neurologic: No headache, dizziness, syncope, unilateral weakness, ataxia, numbness or tingling in the extremities. Skin: No rash Endocrine: No cold or heat intolerance. Psychiatric: No increased depressive symptoms. Physical exam: Constitutional: Alert, in no distress. Eyes: Pupils are equal, round and reactive to light. Extraocular muscles intact. Neck: Supple, Full range of motion. No lymphadenopathy. Respiratory: Clear to auscultation. Cardiovascular: S1 S2 regular. No murmurs. Musculoskeletal: Patient has tenderness of the right proximal hamstring area, and there is significant ecchymosis of the back of the right upper leg, but it appears to be fading. He can ambulate normally and has full range of motion of his lower extremities. There is no warmth or edema. Extremities: Warm and well perfused. No clubbing, cyanosis or edema. Lower extremity pulses are palpable. Psychiatric: Normal mood and affect PENDING SALE TO [facility] Medical History Callus of foot Hepatic steatosis Elevated LFTs Microalbuminuria Diabetes mellitus type 2, insulin dependent Prostate cancer Depression GERD (gastroesophageal reflux disease) Hypercholesterolemia Pancreatic cancer Sleep apnea HTN (hypertension) DVT (deep venous thrombosis) Elevated cholesterol Diabetes Surgical History History of partial pancreatectomy H/O colonoscopy History of laparotomy Hx of hemorrhoidectomy Hx of appendectomy History of Whipple procedure Social History Household Members: Spouse Housing: House Patient Tobacco Use Status: Former Tobacco user Tobacco use type: Cigarette Cigarette Packs Per Day: 3 Years Smoked: 15 quit in 1989 e-Cigarette/Vaping Use: Never Used Second Hand Smoke Exposure: No service: No Current occupational status: retired Cognitive needs: No Hearing needs: Yes (hearing aid) Vision needs: Yes (glasses) Questionnaire PHQ-9 Over the last 2 weeks, how often have you been bothered by any of the following problems? 1. Little interest or pleasure in doing things: not at all 2. Feeling down, depressed, or hopeless: not at all 3. Trouble falling or staying asleep, or sleeping too much: not at all 4. Feeling tired or having little energy: not at all 5. Poor appetite or overeating: not at all 6. Feeling bad about yourself - or that you are a failure or have let yourself or your family down: not at all 7. Trouble concentrating on things, such as reading the newspaper or watching television: not at all 8. Moving or speaking so slowly that other people could have noticed. Or the opposite - being so fidgety or restless that you have been moving around a lot more than usual: not at all 9. Thoughts that you would be better off or of hurting yourself in some way: not at all Total score: 0 Depression Screening Interpretation: Negative Depression Screening Done: Yes 60121 - PHQ-9 Billing: Yes Source: Developed by Drs. Amadou Hanna, Breann Murillo, Mahamed Lynn and colleagues, with an educational shawna from [employer]. Thrive Questionnaire Date Thrive assessed: 10/09/24 I am a: Patient What is your living situation today?: I have a steady place to live Within the past 12 months, did the food you bought not last and you didn't have the money to get more?: I choose not to answer this question Within the past 12 months, did you worry whether your food would run out before you got money to buy more?: I choose not to answer this question Do you have trouble paying for medicines?: No Do you have trouble getting transportation to medical appointments?: No Do you have trouble paying your heating and electricity bill?: Yes Do you have trouble taking care of your child, family member or friend?: No Do you have trouble with day-to-day activities such as bathing, preparing meals, shopping, managing finances, etc.?: No Are you currently unemployed and looking for a job?: No Are you interested in more education?: No Please select the resources that you would like help with: Paying for medicine Currently or been in a relationship where the following occur: I choose not to answer THRIVE Score: 1 AUDIT C Alcohol Use Questionnaire (AUDIT-C) 1. How often do you have a drink containing alcohol?: Never 3. How often do you have six or more drinks on one occasion?: Never Total Score: 0 TERRI-7 AMB Questionnaire TERRI-7 Date TERRI - 7 assessed: 10/09/24 Feeling nervous, anxious, or on edge: 0 = Not at all Not being able to stop or control worryin = Several days Worrying too much about different things: 1 = Several days Trouble relaxin = Not at all Being so restless that it is hard to sit still: 0 = Not at all Becoming easily annoyed or irritable: 0 = Not at all Feeling afraid as if something awful might happen: 0 = Not at all Total TERRI-7 score (0-4 normal; 5-9 mild; 10-14 moderate; 15-21 severe): 2 Source: Developed by Drs. Amadou Hanna, Breann Murillo, Mahamed Lynn and colleagues, with an educational shawna from [employer]. TERRI-7 Assessment Billing TERRI-7 Assessment Tool: TERRI-7 Assessment 58837 Physical exam (Primary Care) Vital Signs: Last Vital Signs Pulse 72 10/09/24 11:04 BP 118/62 10/09/24 11:04 Pulse Ox 98 10/09/24 11:04 Oxygen Delivery Method Room Air 10/09/24 11:04 BMI result Body Mass Index 28.1 Tobacco/Smoking Status: Tobacco use Status Tobacco use date assessed 10/09/24 10/09/24 11:11 Patient Tobacco Use Status Former Tobacco user 10/09/24 11:03 Tobacco use type Cigarette 10/09/24 11:03 e-Cigarette/Vaping Use Never Used 10/09/24 11:03 PHQ-9: PHQ-9 Score PHQ-9: Total score 0 10/09/24 11:40 Depression Screening Interpretation: Negative Thrive Assessment: Date of Thrive Assessment Date Thrive assessed 10/09/24 10/09/24 11:03 Currently or been in a relationship where the following occur: I choose not to answer Coding Level of Care Code Est Pt Level 4 (62333) Complex EM visit Add On G2211 Diagnoses Diabetes mellitus type 2, insulin dependent E11.9; Z79.4 Elevated LFTs R79.89 Hepatic steatosis K76.0 Microalbuminuria R80.9 Obstructive sleep apnea syndrome G47.33 Sleep apnea type: obstructive Hypercholesterolemia E78.00 Prostate cancer C61 Malignant neoplasm of pancreas, unspecified location of malignancy C25.9 Pancreatic malignancy location: unspecified Right hamstring muscle strain S76.311A Additional Codes TERRI-7 Assessment Billing - TERRI-7 Assessment Tool: TERRI-7 Assessment 75348 ([id number]) PHQ-9 - 95374 - PHQ-9 Billing: Yes ([id number]) Assessment & Plan Assessment & Plan (1) Diabetes mellitus type 2, insulin dependent: Code(s): E11.9 - Type 2 diabetes mellitus without complications; Z79.4 - [facility] (current) use of insulin Category: Medical (2) Elevated LFTs: Code(s): R79.89 - Other specified abnormal findings of blood chemistry Category: Medical (3) Hepatic steatosis: Code(s): K76.0 - Fatty (change of) liver, not elsewhere classified Category: Medical (4) Microalbuminuria: Code(s): R80.9 - Proteinuria, unspecified Category: Medical (5) Sleep apnea: Comment: uses CPAP Code(s): G47.30 - Sleep apnea, unspecified Category: Medical Qualifiers: Sleep apnea type: obstructive Qualified Code(s): G47.33 - Obstructive sleep apnea (adult) (pediatric) (6) Hypercholesterolemia: Code(s): E78.00 - Pure hypercholesterolemia, unspecified Category: Medical (7) Prostate cancer: Code(s): C61 - Malignant neoplasm of prostate Category: Medical (8) Pancreatic cancer: Code(s): C25.9 - Malignant neoplasm of pancreas, unspecified Category: Medical Qualifiers: Pancreatic malignancy location: unspecified Qualified Code(s): C25.9 - Malignant neoplasm of pancreas, unspecified (9) Right hamstring muscle strain: Code(s): S76.311A - Strain of muscle, fascia and tendon of the posterior muscle group at thigh level, right thigh, initial encounter Plan In summary this is a 69-year-old male with a complex past medical history who presented for follow up today. He will follow up as scheduled with endocrinology. Plan is to start insulin pump. He will continue with his current medication regimen per endocrinology for now. His blood sugars are much better recently. He stays up-to-date with eye exams. Reviewed diabetic diet. I requested notes from the appointment with Gastroenterology this month to follow up for elevated liver enzymes/hepatic steatosis. He does not drink alcohol. Recommended Mediterranean diet. He is on a statin. Last LDL was at goal. He completed radiation therapy for prostate cancer, and I requested the visit note from September with Urology. No known recurrence of pancreatic cancer. He sees Dr. Reyes this month. Requested labs and [facility] Patient has a right hamstring strain, but his pain has already significantly improved, and he can ambulate without difficulty. Recommended conservative management including resting, alternating with he and ice and gentle stretching. If pain does not resolve or worsens he will contact the office. Follow up in 3 months. Medications: New cholecalciferol (vitamin D3) 25 mcg PO DAILY 90 caps 3RF
[2024-10-09 11:04] VITALS: BP 118/62; PULSE 72; O2SAT 98; BMI 28.1
--- OUTSIDE RECORDS SUMMARY | 2024-10-09 11:54 | XMS_ITS | Clinical Summary ---
Author Organization [facility] Address [address] [place] [id number] Phone Care Team Providers Care Wash And Greaser Name Role Phone Maritza Rivera Primary Care Provider [phone] Allergies Active Allergy Reactions Criticality Noted Date Comments Adhesive Tape-Silicones 06/19/2024 Medications tamsulosin (FLOMAX) 0.4 mg 24 hr capsule Take 1 capsule (0.4 mg total) by mouth 1 (one) time each day. Active sertraline (ZOLOFT) 50 mg tablet Take 1 tablet (50 mg total) by mouth 1 (one) time each day. Active oxyCODONE-acetam inophen (PERCOCET) 5-325 mg per tablet Take 1 tablet by mouth every 4 (four) hours if needed for severe pain or moderate pain. Max Daily Amount: 6 tablets 4 Active metFORMIN (GLUCOPHAGE) 1,000 mg tablet Take [...] each day. Active Dexcom G6 Sensor device 4 Active Dexcom G6 Transmitter device USE DIRECTED FOR 30 DAYS 4 Active Gemtesa 75 mg tablet tablet Take 1 tablet (75 mg total) by mouth 1 (one) time each day. 4 Active BD Bianca 2nd Gen Pen Needle 32 gauge x 5/32 needle USE TO INJECT FOUR TIMES DAILY 4 Active pantoprazole (PROTONIX) 40 mg EC tablet Take 1 tablet (40 mg total) by mouth 1 (one) time each day. 3 Active Creon 6,000-19,000 -30,000 unit capsule TAKE ONE CAPSULE BY MOUTH THREE TIMES DAILY WITH EACH MEAL DIRECTED 4 Active NovoLOG Flexpen U-100 Insulin 100 unit/mL (3 mL) injection pen 4 Active Active Problems Problem Noted Date Diagnosed Date Prostate cancer 06/27/2024 Cancer Staging:Clinical:Stage IIIB(cT3a, cN0, cM0, PSA: 2, Grade Group: 1) - Signed by Edward Webber MD on 07/18/2024 Neuroendocrine carcinoma of pancreas Encounters Date Type Department Care Team Description 07/18/2024 1:34 PM EST - 07/18/2024 11:59 PM EST Hospital Encounter [facility] Radiation Oncology [address] [place] [address] Edward Webber MD Prostate cancer (CMS/HCC) (Primary Dx) Discharge Disposition: Home or Self Care from Last 3 Months Surgical History Surgery [...] Recorded Sex Assigned at Not on file Legal Sex Male 2:20 PM EST Gender Identity Not on file Sexual Orientation Not on file Occupation Industry Job Start Date Job End Date Retired Not on file Not on file Not [...] PM EST Office Visit Orthopedic Surgery - [employer] [address] [id number] Johnny Renteria, DPM [address] [address] Health Maintenance Due Date Last Done Comments Diabetes: Annual GFR (Glomerular Filtration Rate) 1955 Diabetes: Annual Foot Exam 1965 Diabetes: Annual Retina Eye Exam 1965 Zoster Vaccines (1 of 2) 1974 Pneumococcal Vaccine: 50+ Years (2 of 2 - PCV) 09/07/2012 [...] on patient's age to complete this topic Meningococcal B Vacine Aged Out No lo nger eligible based on patient's age to complete this topic RSV Immunization Patients Under 20 months Aged Out No longer eligible based on patient's age to complete this topic Varicella Vaccines Aged Out No longer eligible based on patient's age to complete this topic Insurance [employer]UE [employer] - [place] MEDICARE ADVANTAGE Care Teams Wash And Greaser Relationship Specialty Start Date End Date Maritza Rivera PA [address] [place] [address] PCP - General Physician Oil [employer]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
--- OUTSIDE RECORDS SUMMARY | 2024-10-09 11:54 | XMS_ITS | Patient Health Record ---
Author Organization [facility] Address [address] [place] [id number] Care Team Providers Care Underground Production Foreperson Name Role Phone LARISSA LOAIZA Primary Care Provider Keesha darinzhaneAmadou Ellis Unavailable [phone] ALLERGIES No Known Allergies REASON FOR REFERRAL [...] W/U Status Risk SNOMED Code Notes Problem Encounter for screening for malignant neoplasm of colon (Z12.11) Active confirmed [id number] Problem History of adenomatous polyp of colon (Z86.010) Active confirmed 075717818 Problem Encounter for screening for malignant neoplasm of rectum (Z12.12) Active confirmed Screening fo r malignant neoplasm of rectum (160637820) Problem Preprocedural examination (Z01.818) Active confirmed 80852039 Problem History of colon polyps (Z86.010) Active confirmed History of polyp of colon (658375382) Problem Long-term use of aspirin therapy (Z79.82) Active confirmed 552593473 Problem Diverticulosis of colon (K57.30) Active confirmed Diverticulosi s of colon (765273439) PLAN OF TREATMENT Future Test Test Name Order Date COLONOSCOPY 06/04/2016 COLONOSCOPY 12/17/2021 Insurance Providers Payer Name Payer Address Payer Phone Subscriber Number Group Number Insured Name Patient Relationship to Insured Coverage Start Date Coverage End Date [facility] [address] [place], [place] [id number] ALLIE ECHOLS Self - patient is [...] on Coumadin IDDM since the Whipple Denies CO,CVA,Lung disease,renal disease HTN Sleep apnea-uses CPAP Colonoscopy 08/2016 with 2 sm all tubular adenomas removed, small AVM in ascending colon Pancreatic cancer 2019 with Whipple at [facility]--no chemo nor XRT--had temporary biliary stent placed by ERCP post-op Surgical History Surgery Date(Month/Year) Appy- age 3 Pilonidal cyst Hemmorrhoids Whipple 2019 Abdominal surgery for fistula from the [facility]
== END 2024-10-09 11:57 | disposition home or self-care (01) ==
PROVIDERS: PCP Physician Assistant Medical; Visit Provider Physician Assistant Medical
DX: E11.9 Type 2 diabetes mellitus without complications (principal); Z79.4 Long term (current) use of insulin; C61 Malignant neoplasm of prostate; C25.9 Malignant neoplasm of pancreas, unspecified; R79.89 Other specified abnormal findings of blood chemistry; K76.0 Fatty (change of) liver, not elsewhere classified; R80.9 Proteinuria, unspecified; G47.33 Obstructive sleep apnea (adult) (pediatric); E78.00 Pure hypercholesterolemia, unspecified; S76.311A Strain of muscle, fascia and tendon of the posterior muscle group at thigh level, right thigh, initial encounter

== ENCOUNTER → 2024-10-09 10:33 | Outpatient (BNVA) | payer MEDICARE, SELFPAY | PROVIDERS: PCP Physician Assistant Medical; Visit Provider Physician Assistant Medical | DX: E11.9 Type 2 diabetes mellitus without complications (principal); Z79.4 Long term (current) use of insulin; R79.89 Other specified abnormal findings of blood chemistry; K76.0 Fatty (change of) liver, not elsewhere classified; R80.9 Proteinuria, unspecified; G47.33 Obstructive sleep apnea (adult) (pediatric); E78.00 Pure hypercholesterolemia, unspecified; C61 Malignant neoplasm of prostate; C25.9 Malignant neoplasm of pancreas, unspecified; S76.311A Strain of muscle, fascia and tendon of the posterior muscle group at thigh level, right thigh, initial encounter; Z92.3 Personal history of irradiation; X50.1XXA Overexertion from prolonged static or awkward postures, initial encounter; Y93.89 Activity, other specified; Y92.098 Other place in other non-institutional residence as the place of occurrence of the external cause; Y99.9 Unspecified external cause status | CPT/HCPCS: 96127; 99212 ==

== ENCOUNTER 2024-10-11 14:20 | Outpatient (AMB) | payer MEDICARE, SELFPAY ==
--- NOTE | 2024-10-11 16:25 | MHC.AMDMED ---
Intake Intake Visit Reasons: pump training Meat Stock Clerk Required: No Accompanied by: Self / Same As Patient Allergies No Known Allergies [No Known Allergies*] Allergy (Verified 10/09/24 11:08) [facility] Comprehensive Diabetes Asmnt Most Recent Diabetes Results: Creatinine 0.92 mg/dL (0.5-1.4) 09/11/24 Blood Urea Nitrogen 6 mg/dL (9-16) L 09/11/24 Sodium 142 mmol/L (135-145) 09/11/24 Potassium 3.8 mmol/L (3.3-5.1) 09/11/24 Chloride 110 mmol/L (96-108) H 09/11/24 Carbon Dioxide 27 mmol/L (22-29) 09/11/24 Calcium 8.4 mg/dL (8.4-10.2) 09/11/24 AST 44 U/L (5-37) H 09/11/24 ALT 92 U/L (0-40) H 09/11/24 Total Protein 6.4 g/dL (6.5-8.0) L 09/11/24 Albumin 3.8 g/dL (3.5-5.0) 09/11/24 [facility] Medical History Callus of foot Hepatic steatosis Elevated LFTs Microalbuminuria Diabetes mellitus type 2, insulin dependent Prostate cancer Depression GERD (gastroesophageal reflux disease) Hypercholesterolemia Pancreatic cancer Sleep apnea HTN (hypertension) DVT (deep venous thrombosis) Elevated cholesterol Diabetes Surgical History History of partial pancreatectomy H/O colonoscopy History of laparotomy Hx of hemorrhoidectomy Hx of appendectomy History of Whipple procedure Social History Household Members: Spouse Housing: House Patient Tobacco Use Status: Former Tobacco user Tobacco use type: Cigarette Cigarette Packs Per Day: 3 Years Smoked: 15 quit in 1989 e-Cigarette/Vaping Use: Never Used Second Hand Smoke Exposure: No service: No Current occupational status: retired Cognitive needs: No Hearing needs: Yes (hearing aid) Vision needs: Yes (glasses) Assessment & Plan Assessment & Plan (1) Diabetes mellitus type 2, insulin dependent: Code(s): E11.9 - Type 2 diabetes mellitus without complications; Z79.4 - custodial (current) use of insulin Plan: Patient presents for pump training for iLet pump and CGM training today. The following topics were reviewed today: -Pump therapy basic concepts: Basal/bolus -Device settings: Bluetooth/mobile connection (if applicable), correct date and time, sound volume -CGM settings(if integrated system): CGM graft views and trend arrows, alerts and alarms, Start new sensor Patient instructed to only announce meals that have carbohydrates For the 1st 7 days: Eat meals that have usual amount of carbs for you in announce them as usual Wait at least 4 hours between eating meals with carbs and announcing again If you are eating between meals, low carb snacks are the best option. Announce meal right away when you start eating If you forget and is more than 30 minutes since started eating do not announce Avoid over treating lows, this can cause hyperglycemia, which will initiate pump to deliver correction bolus Always have extra supplies: CGM sensor Supply to refill your insulin cartridge and replace your infusion set Blood glucose and ketone testing supplies Extra insulin Treatment for low blood glucose Emergency contact information Ketone action plan Keep marge open on your phone, keep your ilet paired with the marge Always sink her data before appointments with your healthcare provider BG run mode: You will go into BG mode if not receiving CGM glucose readings You will be required to enter BG into pump every 4 hours after 72 hours insulin delivery will stop In the 1st week of pump therapy you will need to enter BG every hour after 48 hours without CGM in the 1st week insulin delivery will stop Insulin delivery settings Date, time and weight Instructed patient to only use room temperature insulin, how to load cartridge or fill pod, with insulin. Fill tubing and cannula (if applicable) Inserting infusion set or starting pod Troubleshooting after starting new pod or inserting new insulin set: Occlusion, adhesive tape sensitivity, redness Check BG 2 hours after site change Safety information: Importance of a backup plan, for manual injections, proper prescriptions and emergency supplies ketone strips, and rules for testing for ketones Patient was able to insert insulin set today without difficulty. Patient understands the basic concepts of pump therapy, how to give insulin for meals and snacks, how to troubleshoot for hyper and hypoglycemia. [facility] Patient will contact [facility] with questions or concerns, patient given IT number to support in any technical issues related to insulin pump Portions of this note were created using voice recognition software, please excuse any words or phrases that may have been misinterpreted. Coding Level of Care Code Est Pt Level 1 (99219) Diagnoses Diabetes mellitus type 2, insulin dependent E11.9; Z79.4
--- OUTSIDE RECORDS SUMMARY | 2024-10-11 17:46 | XMS_ITS | Encounter Summary ---
Author Organization [facility] Address [address] [place] [address] Care Team Providers Care Meat Cooler Name Role Phone Maritza Rivera Primary Care Provider [phone] Reason for Visit * Reason Comments Consult FLAME BURNER-corn and calluses * Consultation (Routine) - Authorized Specialty Diagnoses / Procedures Referred By Contact Referred To Contact Podiatry / Orthopaedic Surgery Diagnoses Corns and callosities Maritza Rivera PA [address] [place] [address] Phone: tel: fax: Johnny Renteria DPM [address] [address] Phone: tel: fax: Referral ID Status Reason Start Date Expiration Date Visits Requested Visits Authorized [id number] Authorized Specialty Services Required 4 08/03/2025 1 1 Encounter Details Date Type Department Care Team (Late st Contact Info) Description 10/10/2024 1:30 PM EST Office Visit Orthopedic Surgery - [place] [address] [phone] Johnny Renteria DPM [address] [address] Verruca plantaris (Primary Dx); Corns and callosities; Metatarsalgia of right foot; Dermatophytosis of nail; Diabetic mononeuropathy simplex (CMS/HCC) Social History Tobacco Use Types Packs/Day Years Used Date Smoking Tobacco: Former Cigarettes Smokeless Tobacco: Never Alcohol Use Standard Drinks/Week Comments Not Currently [...] file Not on file Not on file documented as of this encounter Last Filed Vital Signs Vital Sign Reading Time Taken Comments Blood Pressure - - Pulse - - Temperature - - Respiratory Rate - - Oxygen Saturation - - Inhaled Oxygen Concentration - - Weight 71.7 kg (158 lb) 10/10/2024 1:04 PM EST Height 165.1 cm (5' 5 ) 10/10/2024 1:04 PM EST Body Mass Index 26.29 10/10/2024 1:04 PM EST documented in this encounter Progress Notes * Johnny Renteria DPM - 10/10/2024 1:30 PM EST Last PCP visit:Referring MD: Maritza Rivera PA IDENTIFIER: Cristina is a 69 y.o. year old male who presents for consultation. CC: Foot pain HPI: Patient presents today for evaluation of his feet he reports he has throbbing achy pain in the ballof right foot he states that he is a type II diabetic occasionally has numbness and tingling stateshe has a skin lesion on the ball of his right foot is been chronically achy painful bothering him he wonders if the wart or something else does not the case and his nails are elongated painful but have not been bothering him significantly ROS: GENERAL: Pt denies nausea, fever, vomiting, chills, or shortness of breath. Pt in NAD. CARDIOLOGY: pt denies chest pain, palpitations LUNGS: pt denies shortness of breath MUSCULOSKELETAL: See HPI, otherwise no joint pain or swelling, back pain, or muscle pain. SKIN: see HPI, otherwise no lesions, rash or itching NEURO: No persistent headache, weakness or numbness The remainder of the review of systems is noncontributory PAST MEDICAL HISTORY: Patient Active Problem List Diagnosis Neuroendocrine carcinoma of pancreas (CMS/HCC) Prostate cancer (CMS/HCC) SOCIAL HISTORY: Social History Tobacco Use Smoking status: Former Current packs/day: 1.00 Types: Cigarettes Smokeless tobacco: Never Substance Use Topics Alcohol use: Not Currently ACTIVE MEDICATIONS: Outpatient Medications Marked as Taking for the 10/10/24 encounter (Office Visit) with Johnny Bo DPM Medication Sig Dispense Refill atorvastatin (LIPITOR) 40 mg tablet Take 1 tablet (40 mg total) by mouth. B complex tablet Take 400 mcg by mouth 1 (one) time each day. BD Bianca 2nd Gen Pen Needle 32 gauge x 5/32 needle USE TO INJECT FOUR TIMES DAILY cholecalciferol (VITAMIN D-3) 50 mcg (2,000 unit) capsule Take 50 mcg by mouth. Creon 6,000-19,000 -30,000 unit capsule TAKE ONE CAPSULE BY MOUTH THREE TIMES DAILY WITH EACH MEAL DIRECTED Dexcom G6 Sensor device Dexcom G6 Transmitter device USE DIRECTED FOR 30 DAYS ferrous sulfate 325 mg (65 mg elemental iron) tablet Take 1 tablet (325 mg total) by mouth 2 (two) times a day. Gemtesa 75 mg tablet tablet Take 1 tablet (75 mg total) by mouth 1 (one) time each day. insulin glargine (LANTUS) 100 unit/mL injection Inject 15 Units under the skin at bedtime. magnesium oxide 250 mg magnesium tablet Take 1 tablet (250 mg total) by mouth 1 (one) time each day. metFORMIN (GLUCOPHAGE) 1,000 mg tablet Take 1 tablet (1,000 mg total) by mouth 1 (one) time each day with breakfast. NovoLOG Flexpen U-100 Insulin 100 unit/mL (3 mL) injection pen omeprazole (PriLOSEC) [address] capsule Take 2 capsules (40 mg total) by mouth 1 (one) time each day. oxyCODONE-acetaminophen (PERCOCET) 5-325 mg per tablet Take 1 tablet by mouth every 4 (four) hours if needed for severe pain or moderate pain. pantoprazole (PROTONIX) 40 mg EC tablet Take 1 tablet (40 mg total) by mouth 1 (one) time each day. sertraline (ZOLOFT) 50 mg tablet Take 1 tablet (50 mg total) by mouth 1 (one) time each day. tamsulosin (FLOMAX) 0.4 mg 24 hr capsule Take 1 capsule (0.4 mg total) by mouth 1 (one) time each day. ALLERGIES: Allergies Allergen Reactions Adhesive Tape-Silicones PHYSICAL EXAM: Visit Vitals Ht 1.651 m (65 ) Wt 71.7 kg (158 lb) BMI 26.29 kg/m?? Smoking Status Former BSA 1.79 m?? PODIATRIC EXAMINATION: GENERAL: Patient appears well nourished, with NAD. VASCULAR: Dorsalis pedis pulses are 2/4 bilaterally and Posterior tibial pulses are 2/4 bilaterally. Capillary filling time within normal limits the digits. No pallor on elevation or rubor on dependency. No varicosities. Denies rest pain or claudication pain. NEUROLOGICAL: Sharp/dull sensation intact, protective sensation intact 10/10 with 5.07 semmes guy bilaterally, vibratory sensation with tuning fork intact to the tibial tuberosity. ORTHOPEDIC: Good muscle strength 5/5 of all flexors and extensors. Dorsi flexion of ankle ,10 degrees, plantar flexion WNL. No muscle atrophy. DERMATOLOGICAL:.Abnormal skin formation ball of right foot subfourth metatarsal with left skin lastattention core pain with lateral compression pinpoint bleeding on debridement multiple callus formations balls of both feet that podiatry symmetric bilateral. BIOMECHANICS: Ankle ROM WNL, STJ ROM wnl, MTJ ROM wnl, 1st MPJ ROM wnl. IMAGING: IMPRESSION: 1. Verruca plantaris 2. Corns and callosities 3. Metatarsalgia of right foot 4. Dermatophytosis of nail PLAN: Pt was seen and examined, history reviewed. Discussed with patient regarding proper glucose control, exercise, and diet. Explained to patient proper shoe gear, and importance of daily foot checks. I reviewed neuropathy and why it occurs in diabetics. I educated the patient on proper blood sugar control and the importance of an HgBA1c of less than 7.0%. I reviewed the signs and symptoms of neuropathy with the patient Offloading padding placed to the insoles the right foot and left foot Salicylic acid prescribed treatment options verrucous plantaris were discussed and reviewed including definitive diagnosis with biopsy Discussed with patient concerns for biopsy as it may lead to scar tissue formation but would have surgical cure and definitive diagnosis patient declined Would recommend destructive procedures patient is willing to proceed Salicylic acid was prescribed to be used at home daily at night Follow-up in 1 month [id number]: Destruction of Plantar Verrucae: Verbal informed consent was obtained from the patient. Debrided wart(s) with a scalpel. Aggressive debridement dermal curette and 15 scalpel blade followed by chemical destruction and cauterization with silver nitrate sticks. Johnny Renteria DPM documented in this encounter Plan of Treatment Upcoming Encounters Date Type Department Care Team (Late st Contact Info) Description 11/13/2024 2:00 PM EDT Office Visit Orthopedic Surgery - [place] [address] [phone] Johnny Renteria DPM [address] [address] documented as of this encounter Visit Diagnoses Diagnosis Verruca plantaris- Primary Plantar wart Corns and callosities Metatarsalgia of right foot Dermatophytosis of nail Diabetic mononeuropathy simplex (CMS/HCC) Type II or unspecified type diabetes mellitus with neurological manifestations, not stated as uncontrolled documented in this encounter Orders Outpatient Referral Count Last Ordered Date Fir st Ordered Date AMB REFERRAL TO PODIATRY 1 10/10/2024 documented in this encounter Care Teams Meat Cooler Relationship Specialty Start Date End Date Maritza Rivera PA [address] [place] [address] PCP - General Physician Drilling Field Specialist 08/03/24 documented as of this encounter
--- OUTSIDE RECORDS SUMMARY | 2024-10-11 17:46 | XMS_ITS | Encounter Summary ---
Author Organization [facility] Address [address] [place] [address] Care Team Providers Care Sign Wirer Name Role Phone Maritza Rivera Primary Care Provider [phone] Encounter Details Date Type Department Care Team (Late Contact Info) Description 10/11/2024 Telephone Orthopedic Surgery - [place] [address] [phone] Johnny Renteria, DPM [address] [address] Social History Tobacco Use Types Packs/Day Years [...] on file documented as of this encounter Progress Notes * Meg Mills - 10/11/2024 11:50 AM EST Varinder is calling stating he called his pharmacy for a prescription status but was told they hadn't received a script for the cream. Please sent script when ready to pharmacy documented in this encounter Plan of Treatment Upcoming Encounters Date Type Department Care Team (Late Contact Info) Description 11/13/2024 2:00 PM EDT Office Visit Orthopedic Surgery - [place] [address] [phone] Johnny Renteria, JEMAL [address] [address] documented as of this encounter Visit Diagnoses Not on filedocumented in this encounter Care Teams Sign Wirer Relationship Specialty Start Date End Date Maritza Rivera PA [address] [place] [address] PCP - General Physician State Inspector 08/03/24 documented as of this encounter
--- OUTSIDE RECORDS SUMMARY | 2024-10-11 17:46 | XMS_ITS | Patient Health Record ---
Author Organization [facility] Address [address] [place] [address] Care Team Providers Care Pneumatic Riveter Name Role Phone LARISSA LOAIZA Primary Care Provider Keesha darinzhaneAmadou Ellis Unavailable [phone] ALLERGIES No Known Allergies REASON FOR REFERRAL [...] malignant neoplasm of colon (Z12.11) Active confirmed 313011533 Problem History of adenomatous polyp of colon (Z86.010) Active confirmed 587317620 Problem Encounter for screening for malignant neoplasm of rectum (Z12.12) Active confirmed Screening fo r malignant neoplasm of rectum (045428474) Problem Preprocedural examination (Z01.818) Active confirmed 60057361 Problem History of colon polyps (Z86.010) Active confirmed History of polyp of colon (332608399) Problem Long-term use of aspirin therapy (Z79.82) Active confirmed 666048400 Problem Diverticulosis of colon (K57.30) Active confirmed Diverticulosi s of colon (722537135) PLAN OF TREATMENT Future Test Test Name Order Date COLONOSCOPY 06/04/2016 COLONOSCOPY 12/17/2021 Insurance Providers Payer Name Payer Address Payer Phone Subscriber Number Group Number Insured Name Patient Relationship to Insured Coverage Start Date Coverage End Date [facility] [address] [place], [place] [id number] [phone] [id number] ALLIE ECHOLS Self - patient is [...] on Coumadin IDDM since the Whipple Denies [place],CVA,Lung disease,renal disease HTN Sleep apnea-uses CPAP Colonoscopy 08/2016 with 2 sm all tubular adenomas removed, small AVM in ascending colon Pancreatic cancer 2019 with [facility] at [facility]--no chemo nor XRT--had temporary biliary stent placed by ERCP post-op Surgical History Surgery Date(Month/Year) Appy- age 3 Pilonidal cyst Hemmorrhoids Whipple 2019 Abdominal surgery for fistula from the Ceci quintana
--- OUTSIDE RECORDS SUMMARY | 2024-10-11 17:46 | XMS_ITS | Clinical Summary ---
Author Organization [facility] Address [address] [place] [address] Phone Care Team Providers Care Skin Peeling Machine Operator Name Role Phone Maritza Rivera Primary Care Provider [phone] Allergies Active Allergy Reactions Criticality Noted Date [...] needed for severe pain or moderate pain. 4 Active metFORMIN (GLUCOPHAGE) 1,000 mg tablet [...] Encounters Date Type Department Care Team Description 10/11/2024 Telephone Orthopedic Surgery [facility] [address] [phone] Johnny Renteria DPM 10/10/2024 1:30 PM EST Office Visit Orthopedic Surgery [facility] [address] [phone] Johnny Renteria, DPM Verruca plantaris (Primary Dx); Corns and callosities; Metatarsalgia of right foot; Dermatophytosis of nail; Diabetic mononeuropathy simplex ([facility]/HCC) 07/18/2024 1:34 PM EST - 07/18/2024 11:59 PM EST Hospital Encounter [facility] Radiation Oncology [address] [facility] [address] [place] [phone] Edward Webber MD Prostate cancer ([facility]/HCC) (Primary Dx) Discharge Disposition: Home or Self Care from Last 3 Months Surgical History Surgery Date Site/Laterality Comments WHIPPLE PROCEDURE W/ LAPAROSCOPY CYSTOSCOPY INSERTION / REMOVAL STENT / STONE Medical History Medical History Date Comments Microscopic hematuria Kidney stones BPH (benign prostatic hyperplasia) Hypercholesterolemia Neuroendocrine carcinoma of pancreas (CMS/[facility]) Family History Medical History Relation Name Comments [...] EST Inhaled Oxygen Concentration - - Weight 71.7 kg (158 lb) 10/10/2024 1:04 PM EST Height 165.1 cm (5' 5 ) 10/10/2024 1:04 PM EST Body Mass Index 26.29 10/10/2024 1:04 PM EST Plan of Treatment Upcoming Encounters Date Type Department Care Team (Late st Contact Info) Description 11/13/2024 2:00 PM EDT Office Visit Orthopedic Surgery - [place] [address] [phone] Johnny Renteria DPM [address] [address] Health Maintenance Due Date Last Done Comments [...] CROSS - [place] Care Teams Skin Peeling Machine Operator Relationship Specialty Start Date End Date Maritza Rivera PA [address] [place] [address] PCP - General Physician Fiber Optic Assembly Worker 08/03/24
== END 2024-10-11 16:35 | disposition home or self-care (01) ==
PROVIDERS: PCP Physician Assistant Medical; Visit Provider Registered Nurse Diabetes Educator
DX: E11.9 Type 2 diabetes mellitus without complications (principal); Z79.4 Long term (current) use of insulin

== ENCOUNTER → 2024-10-11 14:20 | Outpatient (BNVA) | payer MEDICARE, SELFPAY | PROVIDERS: PCP Physician Assistant Medical; Visit Provider Registered Nurse Diabetes Educator | DX: Z46.81 Encounter for fitting and adjustment of insulin pump (principal); E11.9 Type 2 diabetes mellitus without complications | CPT/HCPCS: 99211 ==

== ENCOUNTER 2024-10-16 07:28 | Outpatient (AMB) | payer MEDICARE, SELFPAY ==
--- NOTE | 2024-10-16 08:19 | MHC.AMDMED ---
Intake Intake Visit Reasons: Pump training f/u Trading Specialist Required: No Accompanied by: Self / Same As Patient Allergies No Known Allergies [No Known Allergies*] Allergy (Verified 10/09/24 11:08) [facility] Comprehensive Diabetes Asmnt Most Recent Diabetes Results: Creatinine 0.92 mg/dL (0.5-1.4) 09/11/24 Blood Urea Nitrogen 6 mg/dL (9-16) L 09/11/24 Sodium 142 mmol/L (135-145) 09/11/24 Potassium 3.8 mmol/L (3.3-5.1) 09/11/24 Chloride 110 mmol/L (96-108) H 09/11/24 Carbon Dioxide 27 mmol/L (22-29) 09/11/24 Calcium 8.4 mg/dL (8.4-10.2) 09/11/24 AST 44 U/L (5-37) H 09/11/24 ALT 92 U/L (0-40) H 09/11/24 Total Protein 6.4 g/dL (6.5-8.0) L 09/11/24 Albumin 3.8 g/dL (3.5-5.0) 09/11/24 [facility] Medical History Callus of foot Hepatic steatosis Elevated LFTs Microalbuminuria Diabetes mellitus type 2, insulin dependent Prostate cancer Depression GERD (gastroesophageal reflux disease) Hypercholesterolemia Pancreatic cancer Sleep apnea HTN (hypertension) DVT (deep venous thrombosis) Elevated cholesterol Diabetes Surgical History History of partial pancreatectomy H/O colonoscopy History of laparotomy Hx of hemorrhoidectomy Hx of appendectomy History of Whipple procedure Social History Household Members: Spouse Housing: House Patient Tobacco Use Status: Former Tobacco user Tobacco use type: Cigarette Cigarette Packs Per Day: 3 Years Smoked: 15 quit in 1989 e-Cigarette/Vaping Use: Never Used Second Hand Smoke Exposure: No service: No Current occupational status: retired Cognitive needs: No Hearing needs: Yes (hearing aid) Vision needs: Yes (glasses) Assessment & Plan Assessment & Plan (1) Diabetes mellitus type 2, insulin dependent: Code(s): E11.9 - Type 2 diabetes mellitus without complications; Z79.4 - residential (current) use of insulin Plan: Patient presents for pump training for iLet pump and CGM training today. The following topics were reviewed today: -Pump therapy basic concepts: Basal/bolus -For most effective glucose control bolus prior to meals - Off pump backup insulin plan iLet Alerts: ??? High Alert: 300 mg/dl ??? Low Alert: 75 mg/dl CGM: Above target:34.8% At target:60.4% Below target:3.8% Patient's average glucose for the past 5 days 168 mg/dL Patient has successfully change insulin delivery set on 10/14/24. Patient does have several episodes of hypoglycemia, some due to late meal announcements. Reviewed with patient how to treat hypoglycemia with rule of 15s Setup Pts EZMove marge Overall patient is feeling positive about 1st few days of insulin pump therapy TDD:54.8 units Basal:20.4 units Instructed patient to only use room temperature insulin, how to load cartridge or fill pod, with insulin. Fill tubing and cannula (if applicable) Troubleshooting after starting new pod or inserting new insulin set: Occlusion, adhesive tape sensitivity, redness Check BG 2 hours after site change Reviewed Safety information: Importance of a backup plan, for manual injections, proper prescriptions and emergency supplies ketone strips, and rules for testing for ketones Patient understands the basic concepts of pump therapy, how to give insulin for meals and snacks, how to troubleshoot for hyper and hypoglycemia. Patient will follow up with [facility] as instructed Patient will contact [facility] with questions or concerns, patient given IT number to support in any technical issues related to insulin pump Portions of this note were created using voice recognition software, please excuse any words or phrases that may have been misinterpreted. Patient Instructions: Contact clinical document improvement educator with questions or concerns Follow-up in 3 weeks Coding Level of Care Code Est Pt Level 1 (00813) Diagnoses Diabetes mellitus type 2, insulin dependent E11.9; Z79.4
== END 2024-10-16 08:20 | disposition home or self-care (01) ==
PROVIDERS: PCP Physician Assistant Medical; Visit Provider Registered Nurse Diabetes Educator
DX: E11.9 Type 2 diabetes mellitus without complications (principal); Z79.4 Long term (current) use of insulin

== ENCOUNTER → 2024-10-16 07:28 | Outpatient (BNVA) | payer MEDICARE, SELFPAY | PROVIDERS: PCP Physician Assistant Medical; Visit Provider Registered Nurse Diabetes Educator | DX: E11.9 Type 2 diabetes mellitus without complications (principal); Z79.4 Long term (current) use of insulin; Z96.41 Presence of insulin pump (external) (internal) | CPT/HCPCS: 99211 ==

== ENCOUNTER → 2024-10-23 16:23 | Outpatient (BNVA) | payer MEDICARE, SELFPAY | PROVIDERS: PCP Physician Assistant Medical; Visit Provider Registered Nurse Diabetes Educator | DX: E11.9 Type 2 diabetes mellitus without complications (principal); Z79.4 Long term (current) use of insulin | CPT/HCPCS: 99211 ==

== ENCOUNTER 2024-10-23 16:27 | Outpatient (AMB) | payer MEDICARE, SELFPAY ==
--- NOTE | 2024-10-23 16:38 | MHC.AMDMED ---
Intake Intake Visit Reasons: 30 min Fisheries Inspector Required: No Accompanied by: Spouse Allergies No Known Allergies [No Known Allergies*] Allergy (Verified 10/09/24 11:08) HPI Comprehensive Diabetes Asmnt Most Recent Diabetes Results: Creatinine 0.92 mg/dL (0.5-1.4) 09/11/24 Blood Urea Nitrogen 6 mg/dL (9-16) L 09/11/24 Sodium 142 mmol/L (135-145) 09/11/24 Potassium 3.8 mmol/L (3.3-5.1) 09/11/24 Chloride 110 mmol/L (96-108) H 09/11/24 Carbon Dioxide 27 mmol/L (22-29) 09/11/24 Calcium 8.4 mg/dL (8.4-10.2) 09/11/24 AST 44 U/L (5-37) H 09/11/24 ALT 92 U/L (0-40) H 09/11/24 Total Protein 6.4 g/dL (6.5-8.0) L 09/11/24 Albumin 3.8 g/dL (3.5-5.0) 09/11/24 [facility] Medical History Callus of foot Hepatic steatosis Elevated LFTs Microalbuminuria Diabetes mellitus type 2, insulin dependent Prostate cancer Depression GERD (gastroesophageal reflux disease) Hypercholesterolemia Pancreatic cancer Sleep apnea HTN (hypertension) DVT (deep venous thrombosis) Elevated cholesterol Diabetes Surgical History History of partial pancreatectomy H/O colonoscopy History of laparotomy Hx of hemorrhoidectomy Hx of appendectomy History of Whipple procedure Social History Household Members: Spouse Housing: House Patient Tobacco Use Status: Former Tobacco user Tobacco use type: Cigarette Cigarette Packs Per Day: 3 Years Smoked: 15 quit in 1989 e-Cigarette/Vaping Use: Never Used Second Hand Smoke Exposure: No service: No Current occupational status: retired Cognitive needs: No Hearing needs: Yes (hearing aid) Vision needs: Yes (glasses) Assessment & Plan Assessment & Plan (1) Diabetes mellitus type 2, insulin dependent: Code(s): E11.9 - Type 2 diabetes mellitus without complications; Z79.4 - USP (current) use of insulin Plan: Patient presents for pump training for iLet pump and CGM training today. The following topics were reviewed today: -Pump therapy basic concepts: Basal/bolus -For most effective glucose control bolus prior to meals - Off pump backup insulin plan iLet Alerts: ??? High Alert: 300 mg/dl ??? Low Alert: 75 mg/dl CGM: Above target:31.1% At target:65.1% Below target:1.2% Patient's average glucose for the past 13 days 159 mg/dL TDD:48 units Basal:18.6 units Patient walked into clinic today with questions regarding insulin delivery set change. Showed patient if he still has insulin for this 3rd day he can dismiss change insulin delivery set message from pump, and change insulin delivery set on 3rd day. In addition we increase target to higher than overnight while patient is sleeping due to episodes of hypoglycemia Reviewed with patient how to treat hypoglycemia, by taking 15 g fast acting carbohydrate such 3-4 glucose tabs 4 oz of juice Wait 15 minutes recheck glucose. If glucose remains below 80 mg/dL repeat treatment Encourage patient certified adaptive physical educator is not available to call [employer] customer service available 24 hours a day 7 days a week. Patient has stated he understood directions Instructed patient to only use room temperature insulin, how to load cartridge or fill pod, with insulin. Fill tubing and cannula (if applicable) Troubleshooting after starting new pod or inserting new insulin set: Occlusion, adhesive tape sensitivity, redness Check BG 2 hours after site change Reviewed Safety information: Importance of a backup plan, for manual injections, proper prescriptions and emergency supplies ketone strips, and rules for testing for ketones Patient understands the basic concepts of pump therapy, how to give insulin for meals and snacks, how to troubleshoot for hyper and hypoglycemia. Patient will follow up with [facility] as instructed Patient will contact [facility] with questions or concerns, patient given IT number to support in any technical issues related to insulin pump Portions of this note were created using voice recognition software, please excuse any words or phrases that may have been misinterpreted. Patient Instructions: Follow-up with certified adaptive physical educator on 11/06/2024 Coding Level of Care Code Est Pt Level 1 (18594) Diagnoses Diabetes mellitus type 2, insulin dependent E11.9; Z79.4
--- OUTSIDE RECORDS SUMMARY | 2024-10-23 18:06 | XMS_ITS | Encounter Summary ---
Author Organization [facility] Address [address] [place] [address] Care Team Providers Care Bow Maker Machine Tender Name Role Phone Maritza Rivera Primary Care Provider [phone] Reason for Visit * Reason Comments Consult MULTIFOCAL BUTTON GRINDER-corn and calluses * Consultation (Routine) - Closed Specialty Diagnoses / Procedures Referred By Contact Referred To Contact Podiatry / Orthopaedic Surgery Diagnoses Corns and callosities Maritza Rivera PA [address] [place] [address] Phone: tel: fax: Johnny Renteria DPM [address] [address] Phone: tel: fax: Referral ID Status Reason Start Date Expiration Date V isits Requested Visits Authorized [id number] Closed Specialty Services Required 08/03/2024 08/03/2025 1 1 Encounter Details Date Type Department Care Team (Late st Contact Info) Description 10/10/2024 1:30 PM EST Office Visit Orthopedic Surgery - [place] [address] [phone] Johnny Renteria DPM [address] [address] Verruca plantaris (Primary Dx); Corns and callosities; [...] daily at night Follow-up in 1 month [id number]: Destruction of Plantar Verrucae: Verbal informed consent [...] PM EDT Office Visit Orthopedic Surgery - [place] [address] [phone] Johnny Renteria DPM [address] [address] documented as of this encounter Visit Diagnoses [...] 10/10/2024 documented in this encounter Care Teams Bow Maker Machine Tender Relationship Specialty Start Date End Date Maritza Rivera PA [address] [place] [address] PCP - General Physician Restoration Technician 08/03/24 documented as of this encounter
--- OUTSIDE RECORDS SUMMARY | 2024-10-23 18:06 | XMS_ITS | Clinical Summary ---
Author Organization [facility] Address [address] [place] [address] Phone Care Team Providers Care Residential Care Officer Name Role Phone Maritza Rivera Primary Care Provider [phone] Allergies Active Allergy Reactions Criticality Noted Date [...] Care Team Description 10/11/2024 Telephone Orthopedic Surgery [place] [address] [address] Johnny Renteria DPM 10/10/2024 1:30 PM EST Office Visit Orthopedic Surgery [facility] [address] [phone] Johnny Renteria, DPM Verruca plantaris (Primary Dx); Corns and callosities; Metatarsalgia of right foot; Dermatophytosis of nail; Diabetic mononeuropathy simplex (CMS/HCC) from Last 3 Months Surgical History Surgery [...] PM EDT Office Visit Orthopedic Surgery - [place] [address] [phone] Johnny Renteria, DPM [address] [address] Health Maintenance Due Date Last Done Comments [...] [place] - [place] Care Teams Residential Care Officer Relationship Specialty Start Date End Date Maritza Rivera PA [address] [place] [address] PCP - General Physician Rn Family 08/03/24
--- OUTSIDE RECORDS SUMMARY | 2024-10-23 18:06 | XMS_ITS | Patient Health Record ---
Author Organization [facility] Address [address] [place] [address] Care Team Providers Care Resort Host Name Role Phone LARISSA LOAIZA Primary Care Provider Keesha Amadou Ugarte Unavailable [phone] Allergies No Known Allergies Reason For Referral No Information Medications Medication SIG (Take, Route, Frequency, Duration) Notes [...] Orally Active Aspirin Adult Low Dose Active Immunizations Vaccine Route Administration Date Status Comme nts Influenza Unknown 07/02/2021 Administered Problems Problem Type SNOMED Code ICD Code Onset Dates Problem Status W/U Status Risk Notes Problem 214555107 Encounter for screening for malignant neoplasm of colon (Z12.11) Active confirmed Problem 419011062 History of adenomatous polyp of colon (Z86.010) Active confirmed Problem Screening for malignant neoplasm of rectum (185757935) Encounter for screening for malignant neoplasm of rectum (Z12.12) Active confirmed Problem 21543429 Preprocedural examination (Z01.818) Active confirmed Problem History of polyp of colon (937126087) History of colon polyps (Z86.010) Active confirmed Problem 453490833 Long-term use of aspirin therapy (Z79.82) Active confirmed Problem Diverticulosis of colon (263717552) Diverticulosis of colon (K57.30) Active confirmed Plan Of Treatment Future Test Test Name Order Date COLONOSCOPY 06/04/2016 COLONOSCOPY 12/17/2021 Insurance Providers Payer Name Payer Address Payer Phone Subscriber Number Group Number Insured Name Patient Relationship to Insured Coverage Start Date Coverage End Date [facility] [address] [place], [place] [id number] ALLIE ECHOLS Self - patient is the insured Medical (General) History Medical History History ICD Code He has [...] on Coumadin IDDM since the Whipple Denies [place],CVA,Lung disease,renal disease HTN Sleep apnea-uses CPAP Colonoscopy 08/2016 with 2 sm all tubular adenomas removed, small AVM in ascending colon Pancreatic cancer 2019 with Whipple at [facility]--no chemo nor XRT--had temporary biliary stent placed by ERCP post-op Surgical History Surgery Date(Month/Year) Appy- age 3 Pilonidal cyst Hemmorrhoids Whipple 2019 Abdominal surgery for fistula from the [facility]
--- OUTSIDE RECORDS SUMMARY | 2024-10-23 18:06 | XMS_ITS | Encounter Summary ---
Author Organization [facility] Address [address] [place] [address] Care Team Providers Care Scale Manager Name Role Phone Maritza Rivera Primary Care Provider [phone] Encounter Details Date Type Department Care Team ([facility] st Contact Info) Description 10/11/2024 Telephone Orthopedic Surgery - [place] [address] [phone] Johnny Renteria, DPM [address] [address] Social History Tobacco Use Types Packs/Day Years [...] encounter Progress Notes * Meg Mills - 10/13/2024 11:29 AM EST Varinder is calling back inquiring on the proscription states * Meg Mills - 10/11/2024 11:50 AM [...] PM EDT Office Visit Orthopedic Surgery - [place] [address] [phone] Johnny Renteria, DPLilliana [address] [address] documented as of this encounter Visit Diagnoses Not on filedocumented in this encounter Care Teams Scale Manager Relationship Specialty Start Date End Date Maritza Rivera PA [address] [place] [address] PCP - General Physician Die Maker Electronic 08/03/24 documented as of this encounter
== END 2024-10-23 16:45 | disposition home or self-care (01) ==
PROVIDERS: PCP Physician Assistant Medical; Visit Provider Registered Nurse Diabetes Educator
DX: E11.9 Type 2 diabetes mellitus without complications (principal); Z79.4 Long term (current) use of insulin

== ENCOUNTER 2024-11-06 13:32 | Outpatient (AMB) | payer MEDICARE, SELFPAY ==
--- NOTE | 2024-11-06 14:34 | A.OFFVIS_ITS ---
Intake Intake Visit Reasons: 60 min Electrical Instrumentation Technician Required: No Accompanied by: Spouse Allergies No Known Allergies [No Known Allergies*] Allergy (Verified 10/09/24 11:08) HPI Comprehensive Diabetes Asmnt Most Recent Diabetes Results: Microalb/Creat Ratio 36.2 ug/mg cr (<30) H 03/28/24 Cholesterol 89 mg/dL (<200) 03/28/24 HDL Cholesterol 30 mg/dL (>40) L 03/28/24 Triglycerides 81 mg/dL (<150) 03/28/24 Creatinine 0.92 mg/dL (0.5-1.4) 09/11/24 Blood Urea Nitrogen 6 mg/dL (9-16) L 09/11/24 Sodium 142 mmol/L (135-145) 09/11/24 Potassium 3.8 mmol/L (3.3-5.1) 09/11/24 Chloride 110 mmol/L (96-108) H 09/11/24 Carbon Dioxide 27 mmol/L (22-29) 09/11/24 Calcium 8.4 mg/dL (8.4-10.2) 09/11/24 AST 44 U/L (5-37) H 09/11/24 ALT 92 U/L (0-40) H 09/11/24 Total Protein 6.4 g/dL (6.5-8.0) L 09/11/24 Albumin 3.8 g/dL (3.5-5.0) 09/11/24 [facility] Medical History Callus of foot Hepatic steatosis Elevated LFTs Microalbuminuria Diabetes mellitus type 2, insulin dependent Prostate cancer Depression GERD (gastroesophageal reflux disease) Hypercholesterolemia Pancreatic cancer Sleep apnea HTN (hypertension) DVT (deep venous thrombosis) Elevated cholesterol Diabetes Surgical History History of partial pancreatectomy H/O colonoscopy History of laparotomy Hx of hemorrhoidectomy Hx of appendectomy History of Whipple procedure Social History Household Members: Spouse Housing: House Patient Tobacco Use Status: Former Tobacco user Tobacco use type: Cigarette Cigarette Packs Per Day: 3 Years Smoked: 15 quit in 1989 e-Cigarette/Vaping Use: Never Used Second Hand Smoke Exposure: No service: No Current occupational status: retired Cognitive needs: No Hearing needs: Yes (hearing aid) Vision needs: Yes (glasses) Assessment & Plan Assessment & Plan (1) Diabetes mellitus type 2, insulin dependent: Code(s): E11.9 - Type 2 diabetes mellitus without complications; Z79.4 - [facility] (current) use of insulin Plan: Patient presents for pump training for iLet pump and CGM training today. The following topics were reviewed today: -Hypoglycemia Treatment -Pause Feature - Target Goals iLet Alerts: ??? High Alert: 300 mg/dl ??? Low Alert: 75 mg/dl CGM: Above target:30.4% At target:76.5% Below target:1.7% Patient's average glucose for the past 14 days 159 mg/dL TDD:59.2 units Basal:18.2 units Patient is still experiencing overnight hypoglycemia despite setting target to higher. He also has a few episodes of postprandial hypoglycemia even though he is announcing meals appropriately. Patient reports he has increase physical activity now that whether is improving, and is concerned about his glucose dropping low. Discussed with patient has some of the strategies to avoid hypoglycemia, such as you pause feature on iLet, making sure you are carrying snack, and hypoglycemic treatment with you while working in the yard. The importance of stopping frequently to check glucose levels, using trend arrows to determine hypoglycemic risk. Patient agreed Troubleshooting after starting new pod or inserting new insulin set: Occlusion, adhesive tape sensitivity, redness Check BG 2 hours after site change Pt agreed to plan Patient asked if he could stop metformin due to hypoglycemia, explained to patient action metformin. Message sent to endocrine VISUAL MERCHANDISING SPECIALIST to see if he can reduce or stop metformin. Reviewed Safety information: Importance of a backup plan, for manual injections, proper prescriptions and emergency supplies ketone strips, and rules for testing for ketones Patient understands the basic concepts of pump therapy, how to give insulin for meals and snacks, how to troubleshoot for hyper and hypoglycemia. Patient will follow up with [facility] as instructed Patient will contact [facility] with questions or concerns, patient given IT number to support in any technical issues related to insulin pump Portions of this note were created using voice recognition software, please excuse any words or phrases that may have been misinterpreted. Coding Level of Care Code Est Pt Level 1 (02148) Diagnoses Diabetes mellitus type 2, insulin dependent E11.9; Z79.4
== END 2024-11-06 14:40 | disposition home or self-care (01) ==
LOC: HO.ENCR 13:32
PROVIDERS: PCP Physician Assistant Medical; Visit Provider Registered Nurse Diabetes Educator
DX: E11.9 Type 2 diabetes mellitus without complications (principal); Z79.4 Long term (current) use of insulin

== ENCOUNTER → 2024-11-06 13:32 | Outpatient (BNVA) | payer MEDICARE, SELFPAY | PROVIDERS: PCP Physician Assistant Medical; Visit Provider Registered Nurse Diabetes Educator | DX: E11.9 Type 2 diabetes mellitus without complications (principal); Z79.4 Long term (current) use of insulin | CPT/HCPCS: 99211 ==

== ENCOUNTER 2024-11-13 10:37 | Outpatient (AMB) | payer MEDICARE, SELFPAY ==
--- NOTE | 2024-11-13 11:33 | A.OFFVIS_ITS ---
Intake Intake Visit Reasons: Diabetes mellitus type 2, insulin dependent Networks Computer Consultant Required: No Accompanied by: Spouse Allergies No Known Allergies [No Known Allergies*] Allergy (Verified 10/09/24 11:08) HPI Comprehensive Diabetes Asmnt Most Recent Diabetes Results: Microalb/Creat Ratio 36.2 ug/mg cr (<30) H 03/28/24 Cholesterol 89 mg/dL (<200) 03/28/24 HDL Cholesterol 30 mg/dL (>40) L 03/28/24 Triglycerides 81 mg/dL (<150) 03/28/24 Creatinine 0.92 mg/dL (0.5-1.4) 09/11/24 Blood Urea Nitrogen 6 mg/dL (9-16) L 09/11/24 Sodium 142 mmol/L (135-145) 09/11/24 Potassium 3.8 mmol/L (3.3-5.1) 09/11/24 Chloride 110 mmol/L (96-108) H 09/11/24 Carbon Dioxide 27 mmol/L (22-29) 09/11/24 Calcium 8.4 mg/dL (8.4-10.2) 09/11/24 AST 44 U/L (5-37) H 09/11/24 ALT 92 U/L (0-40) H 09/11/24 Total Protein 6.4 g/dL (6.5-8.0) L 09/11/24 Albumin 3.8 g/dL (3.5-5.0) 09/11/24 [facility] Medical History Callus of foot Hepatic steatosis Elevated LFTs Microalbuminuria Diabetes mellitus type 2, insulin dependent Prostate cancer Depression GERD (gastroesophageal reflux disease) Hypercholesterolemia Pancreatic cancer Sleep apnea HTN (hypertension) DVT (deep venous thrombosis) Elevated cholesterol Diabetes Surgical History History of partial pancreatectomy H/O colonoscopy History of laparotomy Hx of hemorrhoidectomy Hx of appendectomy History of Whipple procedure Social History Household Members: Spouse Housing: House Patient Tobacco Use Status: Former Tobacco user Tobacco use type: Cigarette Cigarette Packs Per Day: 3 Years Smoked: 15 quit in 1989 e-Cigarette/Vaping Use: Never Used Second Hand Smoke Exposure: No service: No Current occupational status: retired Cognitive needs: No Hearing needs: Yes (hearing aid) Vision needs: Yes (glasses) Assessment & Plan Assessment & Plan (1) Diabetes mellitus type 2, insulin dependent: Code(s): E11.9 - Type 2 diabetes mellitus without complications; Z79.4 - terminal carman (current) use of insulin Plan: Patient presents for pump training for iLet pump and CGM training today. The following topics were reviewed today: -Factory reset -For most effective glucose control bolus prior to meals iLet Alerts: ??? High Alert: 300 mg/dl ??? Low Alert: 75 mg/dl CGM: Above target:25% At target:71% Below target:3% Patient's average glucose for the past 14 days 150 mg/dL TDD:45.5 units Basal:16 units Due to patient's episodes of hypoglycemia, in increase in physical activity we reset iLet Patient instructed to only announce meals that have carbohydrates For the 1st 7 days: Eat meals that have usual amount of carbs for you in announce them as usual Wait at least 4 hours between eating meals with carbs and announcing again If you are eating between meals, low carb snacks are the best option. Announce meal right away when you start eating If you forget and is more than 30 minutes since started eating do not announce Avoid over treating lows, this can cause hyperglycemia, which will initiate pump to deliver correction bolus Patient did not bring his new meter for set up to today's visit, reports he will drop it off tomorrow so date and time can be entered Instructed patient to only use room temperature insulin, how to load cartridge or fill pod, with insulin. Fill tubing and cannula (if applicable) Patient understands the basic concepts of pump therapy, how to give insulin for meals and snacks, how to troubleshoot for hyper and hypoglycemia. Patient will follow up with [facility] as instructed Patient will contact [facility] with questions or concerns, patient given IT number to support in any technical issues related to insulin pump Portions of this note were created using voice recognition software, please excuse any words or phrases that may have been misinterpreted. Patient Instructions: Patient has follow-up appointment scheduled on 12/07/2024 Coding Level of Care Code Est Pt Level 1 (38847) Diagnoses Diabetes mellitus type 2, insulin dependent E11.9; Z79.4
--- OUTSIDE RECORDS SUMMARY | 2024-11-13 11:55 | XMS_ITS | Encounter Summary ---
Author Organization [facility] Address [address] [place] [address] Care Team Providers Care Cupola Melter Name Role Phone Maritza Rivera Primary Care Provider [phone] Encounter Details Date Type Department Care Team ([facility] st Contact Info) Description 10/11/2024 Telephone Orthopedic Surgery - [place] [address] [phone] Johnny Renteria, DPM [address] [address] Social History Tobacco Use Types Packs/Day Years [...] PM EDT Office Visit Orthopedic Surgery - [place] [address] [phone] Johnny Renteria, DPLilliana [address] [address] documented as of this encounter Visit Diagnoses Not on filedocumented in this encounter Care Teams Cupola Melter Relationship Specialty Start Date End Date Maritza Rivera PA [address] [place] [address] PCP - General Physician Cloth Pattern Maker 08/03/24 documented as of this encounter
--- OUTSIDE RECORDS SUMMARY | 2024-11-13 11:55 | XMS_ITS | Clinical Summary ---
Author Organization [facility] Address [address] [place] [address] Phone Care Team Providers Care Glass Blower Name Role Phone Maritza Rivera Primary Care Provider [phone] Allergies Active Allergy Reactions Criticality Noted Date [...] Care Team Description 10/11/2024 Telephone Orthopedic Surgery [place] [address] [phone] Johnny Renteria DPM 10/10/2024 1:30 PM EST Office Visit Orthopedic Surgery [facility] [address] [phone] Johnny Renteria, DPM Verruca plantaris (Primary Dx); Corns and callosities; Metatarsalgia of right foot; Dermatophytosis of nail; Diabetic mononeuropathy simplex (CMS/HCC) from Last 3 Months Surgical History Surgery Date Site/Laterality Comments WHIPPLE PROCEDURE W/ LAPAROSCOPY CYSTOSCOPY INSERTION / REMOVAL STENT / STONE Medical History Medical History Date Comments Microscopic hematuria Kidney stones BPH (benign prostatic hyperplasia) Hypercholesterolemia Neuroendocrine carcinoma of pancreas Family History Medical History Relation Name Comments [...] PM EDT Office Visit Orthopedic Surgery - [place] [address] [phone] Johnny Renteria, DPM [address] [address] Health Maintenance Due Date Last Done Comments [...] [place] Care Teams Glass Blower Relationship Specialty Start Date End Date Maritza Rivera PA [address] [place] [address] PCP - General Physician Consumer Safety Inspector 08/03/24
--- OUTSIDE RECORDS SUMMARY | 2024-11-13 11:55 | XMS_ITS | Patient Health Record ---
Author Organization [facility] Address [address] [place] [address] Care Team Providers Care Service Observer Chief Name Role Phone LARISSA LOAIZA Primary Care Provider Keesha Amadou Ugarte Unavailable [phone] Allergies No Known Allergies Reason For Referral [...] Problem Status W/U Status Risk Notes Problem 241680548 Encounter for screening for malignant neoplasm of colon (Z12.11) Active confirmed Problem 662962377 History of adenomatous polyp of colon (Z86.010) Active confirmed Problem Screening for malignant neoplasm of rectum (027549754) Encounter for screening for malignant neoplasm of rectum (Z12.12) Active confirmed Problem 28063017 Preprocedural examination (Z01.818) Active confirmed Problem History of polyp of colon (941248245) History of colon polyps (Z86.010) Active confirmed Problem 664122803 Long-term use of aspirin therapy (Z79.82) Active confirmed Problem Diverticulosis of colon (607218863) Diverticulosis of colon (K57.30) Active confirmed Plan Of Treatment Future Test Test Name Order Date COLONOSCOPY 06/04/2016 COLONOSCOPY 12/17/2021 Insurance Providers Payer Name Payer Address Payer Phone Subscriber Number Group Number Insured Name Patient Relationship to Insured Coverage Start Date Coverage End Date [facility] [address] [place], [place] [id number] ALLIE ECHOLS Self - patient is [...] on Coumadin IDDM since the Whipple Denies [place],CVA,Lung disease,renal disease HTN Sleep apnea-uses CPAP Colonoscopy 08/2016 with 2 sm all tubular adenomas removed, small AVM in ascending colon Pancreatic cancer 2019 with Whipple at [facility]--no chemo nor XRT--had temporary biliary stent placed by ERCP post-op Surgical History Surgery Date(Month/Year) Appy- age 3 Pilonidal cyst Hemmorrhoids Whipple 2019 Abdominal surgery for fistula from the [facility]
== END 2024-11-13 11:30 | disposition home or self-care (01) ==
LOC: HO.ENCR 10:37
PROVIDERS: PCP Physician Assistant Medical; Visit Provider Registered Nurse Diabetes Educator
DX: E11.9 Type 2 diabetes mellitus without complications (principal); Z79.4 Long term (current) use of insulin

== ENCOUNTER → 2024-11-13 10:37 | Outpatient (BNVA) | payer MEDICARE, SELFPAY | PROVIDERS: PCP Physician Assistant Medical; Visit Provider Registered Nurse Diabetes Educator | DX: E11.9 Type 2 diabetes mellitus without complications (principal); Z79.4 Long term (current) use of insulin | CPT/HCPCS: 99211 ==

== ENCOUNTER 2024-11-16 09:55 | Outpatient (AMB) | payer MEDICARE, SELFPAY ==
--- NOTE | 2024-11-16 09:50 | A.OFFPC_ITS ---
Intake Visit Reasons: go over labs from [facility] Intake Note: patient is scheduled to review labs Operations Liaison Required: No Allergies No Known Allergies [No Known Allergies*] Allergy (Verified 11/16/24 09:51) Tobacco use date assessed: 10/09/24 Dental Screening Dental Screen Date: 10/09/24 HPI HPI Comments History of Present Illness Details This is a 69-year-old male with a past medical history of pancreatic cancer in remission s/p Whipple 2019, depression, GERD, chronically elevated LFTs, insulin-dependent type 2 diabetes, sleep apnea on CPAP, hyperlipidemia and prostate cancer presenting to discuss lab results. Patient says he had blood work done at [facility] last week for his performance management consultant, and they called and told him his blood sugar was high it is calcium was low and to contact his PCP. Patient does not know the values, and the results are not available to me currently. Patient has known type 2 diabetes with history of pancreatic injury from Whipple procedure. He is followed by endocrinology, and he was recently started on an insulin pump. Patient says his recent GMI was 6.9%. Patient is taking 25 mcg of vitamin D3 daily. He denies numbness, tingling, weakness, lethargy, confusion, tremors. ROS: Constitutional: No unexplained weight loss, fever, fatigue, chills or night sweats. Eyes: No vision changes, blurry vision, double vision, eye pain, eye redness, eye discharge. Respiratory: No shortness of breath, cough or sputum production. Cardiovascular: No chest pain, chest pressure or chest discomfort. No palpitations or pedal edema. Gastrointestinal: No anorexia, nausea, vomiting or diarrhea. No abdominal pain or blood in stool. Neurologic: No headache, dizziness, syncope, unilateral weakness, ataxia, numbness or tingling in the extremities. [facility] Medical History (Updated 11/16/24 @ 10:23 by PAWAN Earl) Low serum calcium Callus of foot Hepatic steatosis Elevated LFTs Microalbuminuria Diabetes mellitus type 2, insulin dependent Prostate cancer Depression GERD (gastroesophageal reflux disease) Hypercholesterolemia Pancreatic cancer Sleep apnea HTN (hypertension) DVT (deep venous thrombosis) Elevated cholesterol Diabetes Surgical History History of partial pancreatectomy H/O colonoscopy History of laparotomy Hx of hemorrhoidectomy Hx of appendectomy History of Whipple procedure Social History Household Members: Spouse Housing: House Patient Tobacco Use Status: Former Tobacco user Tobacco use type: Cigarette Cigarette Packs Per Day: 3 Years Smoked: 15 quit in 1989 Packs Per Year: 0 e-Cigarette/Vaping Use: Never Used Second Hand Smoke Exposure: No service: No Current occupational status: retired Cognitive needs: No Hearing needs: Yes (hearing aid) Vision needs: Yes (glasses) Questionnaire Thrive Questionnaire Date Thrive assessed: 10/09/24 TERRI-7 AMB Questionnaire TERRI-7 Date TERRI - 7 assessed: 10/09/24 Source: Developed by Drs. Amadou Hanna, Breann Murillo, Mahamed Lynn and colleagues, with an educational shawna from [employer]. Physical exam (Primary Care) Tobacco/Smoking Status: Tobacco use Status Tobacco use date assessed 10/09/24 11/16/24 09:54 Patient Tobacco Use Status Former Tobacco user 11/16/24 09:54 Tobacco use type Cigarette 11/16/24 09:54 e-Cigarette/Vaping Use Never Used 11/16/24 09:54 Thrive Assessment: Date of Thrive Assessment Date Thrive assessed 10/09/24 11/16/24 09:54 Telehealth Telehealth Telehealth Platform: Telephone Location of provider rendering services: practice address Location of patient: address on file Patient Identification confirmed using: Name, : Yes Telehealth method: voice only Patient verbally consented to treatment: Yes Patient verbally consented to billing insurance company: Yes Patient informed of any privacy concerns related to visit: Yes Minutes spent on Phone/Video with Pt.: 10 Coding Level of Care Code Tele Est Pt Level 3 (01222) Diagnoses Low serum calcium R79.89 Diabetes mellitus type 2, insulin dependent E11.9; Z79.4 Assessment & Plan Assessment & Plan (1) Low serum calcium: Code(s): R79.89 - Other specified abnormal findings of blood chemistry Category: Medical Plan: We will request labs from [facility]. Patient is coming in after this phone call to have blood work drawn at our lab. See orders below. Warning signs warranting ER evaluation of hypocalcemia reviewed with the patient. (2) Diabetes mellitus type 2, insulin dependent: Code(s): E11.9 - Type 2 diabetes mellitus without complications; Z79.4 - intermediate (current) use of insulin Category: Medical Plan: Patient is followed closely by endocrinology. He is monitoring blood sugars at home. He notes improvement since starting insulin pump therapy. Orders: Orders Vitamin D 25-OH (D2 and D3) Today M85.80 - Other specified disorders of bone density and structure, unspecified site, R79.89 - Other specified abnormal findings of blood chemistry Basic Metabolic Panel Today R79.89 - Other specified abnormal findings of blood chemistry Parathyroid Hormone Intact Today R79.89 - Other specified abnormal findings of blood chemistry TSH reflex Free T4 Today R79.89 - Other specified abnormal findings of blood chemistry Magnesium Today R79.89 - Other specified abnormal findings of blood chemistry
--- OUTSIDE RECORDS SUMMARY | 2024-11-16 10:37 | XMS_ITS | Patient Health Record ---
Author Organization [facility] Address [address] [place] [address] Care Team Providers Care Hospice Care Consultant Name Role Phone LARISSA LOAIZA Primary Care Provider Keesha Amadou Ugarte Unavailable [phone] Allergies No Known Allergies Reason For Referral [...] Problem Status W/U Status Risk Notes Problem [id number] Encounter for screening for malignant neoplasm of colon (Z12.11) Active confirmed Problem 987692558 History of adenomatous polyp of colon (Z86.010) Active confirmed Problem Screening for malignant neoplasm of rectum (103241400) Encounter for screening for malignant neoplasm of rectum (Z12.12) Active confirmed Problem 63616486 Preprocedural examination (Z01.818) Active confirmed Problem History of polyp of colon (942210850) History of colon polyps (Z86.010) Active confirmed Problem 801569717 Long-term use of aspirin therapy (Z79.82) Active confirmed Problem Diverticulosis of colon (869894059) Diverticulosis of colon (K57.30) Active confirmed Plan Of Treatment Future Test Test Name Order Date COLONOSCOPY 06/04/2016 COLONOSCOPY 12/17/2021 Insurance Providers Payer Name Payer Address Payer Phone Subscriber Number Group Number Insured Name Patient Relationship to Insured Coverage Start Date Coverage End Date [facility] [address] [place], [place] [id number] ALLIE ECHOLS Self - patient is [...] on Coumadin IDDM since the [facility]ipple Denies [place],CVA,Lung disease,renal disease HTN Sleep apnea-uses CPAP Colonoscopy 08/2016 with 2 sm all tubular adenomas removed, small AVM in ascending colon Pancreatic cancer 2019 with [facility] at [facility]--no chemo nor XRT--had temporary biliary stent placed by ERCP post-op Surgical History Surgery Date(Month/Year) Appy- age 3 Pilonidal cyst Hemmorrhoids Whipple 2019 Abdominal surgery for fistula from the Ceci quintana
--- OUTSIDE RECORDS SUMMARY | 2024-11-16 10:37 | XMS_ITS | Encounter Summary ---
Author Organization [facility] Address [address] [place] [address] Care Team Providers Care Inspector Eyeglass Frames Name Role Phone Maritza Rivera Primary Care Provider [phone] Reason for Visit * Reason Comments Callouses * Consultation (Routine) - Closed Specialty Diagnoses / Procedures Referred By Contact Referred To Contact Podiatry / Orthopaedic Surgery Diagnoses Corns and callosities Maritza Rivera PA [address] [place] [address] Phone: tel: fax: Johnny Renteria DPM [address] [address] Phone: tel: fax: Referral ID Status Reason Start Date Expiration Date V isits Requested Visits Authorized [id number] Closed Specialty Services Required 08/03/2024 08/03/2025 1 1 Encounter Details Date Type Department Care Team (Late st Contact Info) Description 11/13/2024 2:00 PM EDT Office Visit Orthopedic Surgery - [place] [address] [address] Johnny Renteria DPM [address] [address] Metatarsalgia of right foot (Primary Dx); Verruca plantaris; Dermatophytosis of nail; Diabetic mononeuropathy simplex (CMS/HCC) [...] - - Weight 71.7 kg (158 lb) 11/13/2024 1:32 PM EDT Height - - Body Mass Index 26.29 10/10/2024 1:04 PM EST documented in this encounter Ordered Prescriptions Prescription Sig Dispense Quantity Refills Last Filled Start Date End Date salicylic acid 17 % gel Apply topically 1 (one) time each day. 15 g 2 11/13/2024 5 salicylic acid 17 % gel Apply topically 1 (one) time each day. 15 g 2 11/13/2024 5 documented in this encounter Progress Notes * Johnny Renteria DPM - 11/13/2024 2:00 PM EDT Images from the original note were not included. * Johnny Renteria DPM - 11/13/2024 2:00 PM EDT S Patient presents today for evaluation of his feet he reports he has throbbing achy pain in the ballof right foot he states that he is a type II diabetic occasionally has numbness and tingling stateshe has a skin lesion on the ball of his right foot is been chronically achy painful bothering him has improved since last appointment pain of 4 out of 10 visual analog scale ROS: GENERAL: Pt denies nausea, fever, vomiting, [...] Outpatient Medications Marked as Taking for the 11/13/24 encounter (Office Visit) with Johnny Bo DPM Medication Sig Dispense Refill salicylic acid 17 % gel Apply topically 1 (one) time each day. 15 g 2 ALLERGIES: Allergies Allergen Reactions Adhesive Tape-Silicones PHYSICAL EXAM: Visit Vitals Wt 71.7 kg (158 lb) BMI 26.29 [...] 1st MPJ ROM wnl. IMAGING: IMPRESSION: 1. Metatarsalgia of right foot 2. Verruca plantaris 3. Dermatophytosis of nail 4. Diabetic mononeuropathy simplex (CMS/HCC) PLAN: Pt was seen and examined, history [...] and symptoms of neuropathy with the patient Continue previously placed offloading padding placed to the insoles the right foot and left foot Salicylic acid prescription sent to pharmacy printed prescription given print out [id number] options given Discussed with patient concerns for biopsy as it may lead to scar tissue formation but would have surgical cure and definitive diagnosis patient declined Would recommend destructive procedures patient is willing to proceed Follow-up in 1 month [id number]: Destruction of Plantar Verrucae: Verbal informed consent was obtained from the patient. Debrided wart(s) with a scalpel. Aggressive debridement dermal curette and 15 scalpel blade followed by chemical destruction and cauterization with silver nitrate sticks. Johnny Renteria DPM documented in this encounter Plan of Treatment Upcoming Encounters Date Type Department Care Team (Late st Contact Info) Description 12/25/2024 2:15 PM EDT Office Visit Orthopedic Surgery - [place] [address] [phone] Johnny Renteria DPM [address] [address] documented as of this encounter Visit Diagnoses Diagnosis Metatarsalgia of right foot- Primary Verruca plantaris Plantar wart Dermatophytosis of nail Diabetic mononeuropathy simplex (CMS/HCC) Type II or unspecified type diabetes mellitus with neurological manifestations, not stated as uncontrolled documented in this encounter Discontinued Medications Medication Sig Discontinue Reason Start Date End Da te salicylic acid 17 % gel Apply topically 1 (one) time each day. 11/13/2024 11/13/2024 documented as of this encounter Care Teams Inspector Eyeglass Frames Relationship Specialty Start Date End Date Maritza Rivera PA [address] [place] [address] PCP - General Physician Automatic Developer 08/03/24 documented as of this encounter
--- OUTSIDE RECORDS SUMMARY | 2024-11-16 10:37 | XMS_ITS | Encounter Summary ---
Author Organization [facility] Address [address] [place] [address] Care Team Providers Care Sales Account Specialist Name Role Phone Maritza Rivera Primary Care Provider [phone] Encounter Details Date Type Department Care Team ([facility] st Contact Info) Description 10/11/2024 Telephone Orthopedic Surgery - [place] [address] [phone] Johnny Renteria, DPM [address] [address] Social History Tobacco Use Types Packs/Day Years [...] PM EDT Office Visit Orthopedic Surgery - [place] [address] [address] Johnny Renteria, DPLilliana [address] [address] documented as of this encounter Visit Diagnoses Not on filedocumented in this encounter Care Teams Sales Account Specialist Relationship Specialty Start Date End Date Maritza Rivera PA [address] [place] [address] PCP - General Physician Hand Buffer 08/03/24 documented as of this encounter
--- OUTSIDE RECORDS SUMMARY | 2024-11-16 10:37 | XMS_ITS | Clinical Summary ---
Author Organization [facility] Address [address] [place] [address] Phone Care Team Providers Care Roving Changer Name Role Phone Maritza Rivera Primary Care Provider [phone] Allergies Active Allergy Reactions Criticality Noted Date Comments Adhesive Tape-Silicones 06/19/2024 Medications tamsulosin (FLOMAX) 0.4 mg 24 hr capsule Take 1 capsule (0.4 mg total) by mouth 1 (one) time each day. Active sertraline (ZOLOFT) 50 mg tablet Take 1 tablet (50 mg total) by mouth 1 (one) time each day. Active oxyCODONE-aceta minophen (PERCOCET) 5-325 mg per tablet Take 1 tablet by mouth every 4 (four) hours if needed for severe pain or moderate pain. 03/24/20 24 Active metFORMIN (GLUCOPHAGE) 1,000 mg tablet Take [...] each day. Active Dexcom G6 Sensor device 05/31/20 Active Dexcom G6 Transmitter device USE DIRECTED FOR 30 DAYS 07/01/20 Active Gemtesa 75 mg tablet tablet Take 1 tablet (75 mg total) by mouth 1 (one) time each day. 07/05/20 24 Active BD Bianca 2nd Gen Pen Needle 32 gauge x 5/32 needle USE TO INJECT FOUR TIMES DAILY 06/08/20 Active pantoprazole (PROTONIX) 40 mg EC tablet Take 1 tablet (40 mg total) by mouth 1 (one) time each day. 08/11/20 23 Active Creon 6,000-19,000 -30,000 unit capsule TAKE ONE CAPSULE BY MOUTH THREE TIMES DAILY WITH EACH MEAL DIRECTED 04/23/20 24 Active NovoLOG Flexpen U-100 Insulin 100 unit/mL (3 mL) injection pen 06/28/20 24 Active salicylic acid 17 % gel Apply topically 1 (one) time each day. 15 g 2 11/14/19 25 025 Active salicylic acid 17 % gel Apply topically 1 (one) time each day. 15 g 2 11/14/19 25 025 Discontinued Active Problems Problem Noted Date Diagnosed Date Prostate cancer 06/27/2024 Cancer Staging:Clinical:Stage IIIB(cT3a, cN0, cM0, PSA: 2, Grade Group: 1) - Signed by Edward Webber MD on 07/18/2024 Neuroendocrine carcinoma of pancreas Encounters Date Type Department Care Team Description 11/13/2024 2:00 PM EDT Office Visit Orthopedic Surgery [facility] [address] [address] Johnny Renteria DPM Metatarsalgia of right foot (Primary Dx); Verruca plantaris; Dermatophytosis of nail; Diabetic mononeuropathy simplex (CMS/HCC) 10/11/[address] [facility] [address] [phone] Johnny Renteria DPM 10/10/2024 1:30 PM EST Office Visit Orthopedic Surgery [facility] [address] [address] Johnny Renteria DPM Verruca plantaris (Primary Dx); Corns and [...] (158 lb) 11/13/2024 1:32 PM EDT Height 165.1 cm (5' 5 ) 10/10/2024 1:04 PM EST Body Mass Index 26.29 10/10/2024 1:04 PM EST Plan of Treatment Upcoming Encounters Date Type Department Care Team (Late st Contact Info) Description 12/25/2024 2:15 PM EDT Office Visit Orthopedic Surgery [place] [address] [phone] Johnny Renteria DPM [address] [address] Health Maintenance Due Date Last Done Comments [...] age to complete this topic RSV Immunization Adult Patients Completed 05/05/2023 COVID-19 Vaccine Completed 04/25/2024, , [...] [place] - [place] Care Teams Roving Changer Relationship Specialty Start Date End Date Maritza Rivera PA [address] [place] [address] PCP - General Physician Software Client Architect 08/03/24
== END 2024-11-16 10:32 | disposition home or self-care (01) ==
LOC: HO.HMCFM 09:55
PROVIDERS: PCP Physician Assistant Medical; Visit Provider Physician Assistant Medical
DX: R79.89 Other specified abnormal findings of blood chemistry (principal); E11.9 Type 2 diabetes mellitus without complications; Z79.4 Long term (current) use of insulin

== ENCOUNTER 2024-11-16 10:53 | Outpatient (REF) | payer MEDICARE, SELFPAY ==
--- OUTSIDE RECORDS SUMMARY | 2024-11-16 12:07 | XMS_ITS | Encounter Summary ---
Author Organization [facility] Address [address] [place] [address] Care Team Providers Care Table Tender Sludge Name Role Phone Maritza Rivera Primary Care Provider [phone] Reason for Visit * Reason Comments Callouses * Consultation (Routine) - Closed Specialty Diagnoses / Procedures Referred By Contact Referred To Contact Podiatry / Orthopaedic Surgery Diagnoses Corns and callosities Maritza Rivera PA [address] [place] [address] Phone: tel: fax: Johnny Renteria DPM [address] [address] Phone: tel: fax: Referral ID Status Reason Start Date Expiration Date V isits Requested Visits Authorized [id number] Closed Specialty Services Required 08/03/2024 08/03/2025 1 1 Encounter Details Date Type Department Care Team (Late st Contact Info) Description 11/13/2024 2:00 PM EDT Office Visit Orthopedic Surgery - [place] [address] [phone] Johnny Renteria DPM [address] [address] Metatarsalgia of right foot (Primary Dx); Verruca [...] to pharmacy printed prescription given print out [id number] options given Discussed with patient concerns for biopsy as it may lead to scar tissue formation but would have surgical cure and definitive diagnosis patient declined Would recommend destructive procedures patient is willing to proceed Follow-up in 1 month [id number]: Destruction of Plantar Verrucae: Verbal informed consent [...] PM EDT Office Visit Orthopedic Surgery - [place] [address] [phone] Johnny Renteria DPM [address] [address] documented as of this encounter Visit Diagnoses [...] documented as of this encounter Care Teams Table Tender Sludge Relationship Specialty Start Date End Date Maritza Rivera PA [address] [place] [address] PCP - General Physician Diet Tech 08/03/24 documented as of this encounter
--- OUTSIDE RECORDS SUMMARY | 2024-11-16 12:07 | XMS_ITS | Clinical Summary ---
Author Organization [facility] Address [address] [place] [address] Phone Care Team Providers Care Spool Carrier Name Role Phone Maritza Rivera Primary Care Provider [phone] Allergies Active Allergy Reactions Criticality Noted Date [...] 2:00 PM EDT Office Visit Orthopedic Surgery [facility] [address] [phone] Johnny Renteria DPM Metatarsalgia of right foot (Primary Dx); Verruca plantaris; Dermatophytosis of nail; Diabetic mononeuropathy simplex (CMS/HCC) 10/11/2024 Telephone Orthopedic Surgery [facility] [address] [phone] Johnny Renteria DPM 10/10/2024 1:30 PM EST Office Visit Orthopedic Surgery [facility] [address] [address] Johnny Renteria DPM Verruca plantaris [...] 2:15 PM EDT Office Visit Orthopedic Surgery [place] [address] [phone] Johnny Renteria DPM [address] [address] Health Maintenance Due Date Last Done Comments [...] [place] Care Teams Spool Carrier Relationship Specialty Start Date End Date Maritza Rivera PA [address] [place] [address] PCP - General Physician Barber Instructor 08/03/24
--- OUTSIDE RECORDS SUMMARY | 2024-11-16 12:07 | XMS_ITS | Encounter Summary ---
Author Organization [facility] Address [address] [place] [address] Care Team Providers Care Campus Safety Officer Name Role Phone Maritza Rivera Primary Care Provider [phone] Encounter Details Date Type Department Care Team ([facility] st Contact Info) Description 10/11/2024 Telephone Orthopedic Surgery - [place] [address] [phone] Johnny Renteria, DPM [address] [address] Social History Tobacco Use Types Packs/Day Years [...] PM EDT Office Visit Orthopedic Surgery - [place] [address] [phone] Johnny Renteria, DPLilliana [address] [address] documented as of this encounter Visit Diagnoses Not on filedocumented in this encounter Care Teams Campus Safety Officer Relationship Specialty Start Date End Date Maritza Rivera PA [address] [place] [address] PCP - General Physician Real Estate Transaction Coordinator 08/03/24 documented as of this encounter
[2024-11-16 14:23] LABS: Anion Gap 11 (12-20); Blood Urea Nitrogen 14 mg/dL (9-16); Calcium 8.7 mg/dL (8.4-10.2); Carbon Dioxide 24 mmol/L (22-29); Chloride 112 mmol/L (96-108); Estimated Glomerular Filt Rate > 60; Glucose Random 64 mg/dL (60-115); Potassium 3.8 mmol/L (3.3-5.1); Sodium 143 mmol/L (135-145)
[2024-11-16 14:24] LABS: Glucose Fasting 62 mg/dL (60-99)
[2024-11-16 14:45] LABS: Parathyroid Hormone Intact 146.7 pg/mL (8.7-77.1); TSH reflex Free T4 1.41 uIU/mL (0.32-4.0)
[2024-11-17 07:49] LABS: C Peptide 1.01 ng/mL (0.80-3.85)
[2024-11-21 15:18] LABS: Vitamin D 25-OH, D2 <4 ng/mL; Vitamin D 25-OH, D3 13 ng/mL; Vitamin D 25-OH, Total 13 ng/mL (30-100)
== END 2024-11-16 10:54 | disposition home or self-care (01) ==
LOC: HO.WFDLDS 10:53
PROVIDERS: Internal Medicine; Referring Provider Nurse Practitioner Adult Health; Visit Provider Physician Assistant Medical
DX: E11.9 Type 2 diabetes mellitus without complications (principal); M85.80 Other specified disorders of bone density and structure, unspecified site; R79.89 Other specified abnormal findings of blood chemistry
CPT/HCPCS: 36415; 80048; 82306; 82947; 83735; 83970; 84443; 84681

== ENCOUNTER 2024-12-07 13:12 | Outpatient (AMB) | payer MEDICARE, SELFPAY ==
--- NOTE | 2024-12-07 14:02 | A.OFFVIS_ITS ---
Intake Intake Visit Reasons: 60 min Automobile Damage Field Appraiser Required: No Accompanied by: Self / Same As Patient Allergies No Known Allergies [No Known Allergies*] Allergy (Verified 11/16/24 09:51) HPI Comprehensive Diabetes Asmnt Most Recent Diabetes Results: 2 Creatinine 0.93 mg/dL (0.5-1.4) 11/16/24 Blood Urea Nitrogen 14 mg/dL (9-16) 11/16/24 Sodium 143 mmol/L (135-145) 11/16/24 Potassium 3.8 mmol/L (3.3-5.1) 11/16/24 Chloride 112 mmol/L (96-108) H 11/16/24 Carbon Dioxide 24 mmol/L (22-29) 11/16/24 Calcium 8.7 mg/dL (8.4-10.2) 11/16/24 [facility] Medical History (Updated 11/21/24 @ 15:35 by PAWAN Earl) Vitamin D deficiency Low serum calcium Callus of foot Hepatic steatosis Elevated LFTs Microalbuminuria Diabetes mellitus type 2, insulin dependent Prostate cancer Depression GERD (gastroesophageal reflux disease) Hypercholesterolemia Pancreatic cancer Sleep apnea HTN (hypertension) DVT (deep venous thrombosis) Elevated cholesterol Diabetes Surgical History History of partial pancreatectomy H/O colonoscopy History of laparotomy Hx of hemorrhoidectomy Hx of appendectomy History of Whipple procedure Social History Household Members: Spouse Housing: House Patient Tobacco Use Status: Former Tobacco user Tobacco use type: Cigarette Cigarette Packs Per Day: 3 Years Smoked: 15 quit in 1989 e-Cigarette/Vaping Use: Never Used Second Hand Smoke Exposure: No service: No Current occupational status: retired Cognitive needs: No Hearing needs: Yes (hearing aid) Vision needs: Yes (glasses) Assessment & Plan Assessment & Plan (1) Diabetes mellitus type 2, insulin dependent: Code(s): E11.9 - Type 2 diabetes mellitus without complications; Z79.4 - extermination supervisor (current) use of insulin Plan: Patient presents for pump training for iLet pump and CGM training today. The following topics were reviewed today: -Pump therapy basic concepts: Basal/bolus -For most effective glucose control bolus prior to meals - Target glucose iLet Alerts: ??? High Alert: 300 mg/dl ??? Low Alert: 75 mg/dl Patient continues to be concerned about hypoglycemia. Reminded patient that when he does his yd work he should be pausing his insulin pump. In addition we increase target range overnight so patient does not worry about hypoglycemia while he is sleeping. Set up patient's OneTouch meter at today's visit. Patient's glucose was 82 mg/dL at time of visit, patient is sensor read 144 mg/dL Reviewed with patient how to calibrate sensor when glucose numbers are greater than 50 points apart Troubleshooting after starting new pod or inserting new insulin set: Occlusion, adhesive tape sensitivity, redness Check BG 2 hours after site change Reviewed Safety information: Importance of a backup plan, for manual injections, proper prescriptions and emergency supplies ketone strips, and rules for testing for ketones Patient understands the basic concepts of pump therapy, how to give insulin for meals and snacks, how to troubleshoot for hyper and hypoglycemia. Patient will follow up with [facility] as instructed Patient will contact [facility] with questions or concerns, patient given IT number to support in any technical issues related to insulin pump Portions of this note were created using voice recognition software, please excuse any words or phrases that may have been misinterpreted. Patient Instructions: Pause insulin pump while working in the yd Contact inclusion special educator if episodes of hypoglycemia increase Coding Level of Care Code Est Pt Level 1 (98292) Diagnoses Diabetes mellitus type 2, insulin dependent E11.9; Z79.4
--- OUTSIDE RECORDS SUMMARY | 2024-12-07 15:33 | XMS_ITS | Clinical Summary ---
Author Organization [facility] Address [address] [place] [address] Phone Care Team Providers Care Middle School Librarian Name Role Phone Maritza Rivera Primary Care Provider [phone] Allergies Active Allergy Reactions Criticality Noted Date [...] device USE DIRECTED FOR 30 DAYS 07/01/20 24 Active Gemtesa 75 mg tablet tablet Take 1 tablet (75 mg total) by mouth 1 (one) time each day. 07/05/20 24 Active BD Bianca 2nd Gen Pen Needle 32 gauge x 5/32 needle USE TO INJECT FOUR TIMES DAILY 06/08/20 24 Active pantoprazole (PROTONIX) 40 mg EC tablet [...] Problem Noted Date Diagnosed Date Prostate cancer ([facility] V24, [facility] V28) 06/27 Cancer Staging:Clinical:Stage IIIB(cT3a, cN0, cM0, PSA: 2, Grade Group: 1) - Signed by Edward Webber MD on 07/18/2024 Neuroendocrine carcinoma of pancreas ([facility] V24, [facility] V28) Encounters Date Type Department Care Team Description 11/13/2024 2:00 PM EDT Office Visit Orthopedic Surgery [facility] 250 175 [facility] [address] [place] [phone] Johnny Renteria, DPM Metatarsalgia of right foot (Primary Dx); Verruca plantaris; Dermatophytosis of nail; Diabetic mononeuropathy simplex ([facility] V24, [facility] V28) 10/11/2024 Telephone Orthopedic Surgery [facility] [address] [phone] Johnny Renteria DPM 10/10/2024 1:30 PM EST Office Visit [facility] [address] [phone] Johnny Renteria, DPM Verruca plantaris (Primary Dx); Corns and callosities; Metatarsalgia of right foot; Dermatophytosis of nail; Diabetic mononeuropathy simplex ([facility] V24, [facility] V28) from Last 3 Months Surgical History Surgery Date Site/Laterality Comments WHIPPLE PROCEDURE W/ LAPAROSCOPY CYSTOSCOPY INSERTION / REMOVAL STENT / STONE Medical History Medical History Date Comments Microscopic hematuria Kidney stones BPH (benign prostatic hyperplasia) Hypercholesterolemia Neuroendocrine carcinoma of pancreas ([facility] V2 4, [facility] V28) Family History Medical History Relation Name Comments [...] 12/25/2024 2:15 PM EDT Office Visit Orthopedic [place] [address] [phone] Johnny Renteria DPM 175 [facility] [address] [place] [address] Health Maintenance Due Date Last Done Comments [...] 07/18/2024 Hypertension/CHF/CAD Annual BMP Blood Test 07/18/2024 COVID-19 Vaccine (8 - Mixed Product risk season) 2024 04/25/2024, 05/05/2023, 04/27/2022, Additional history exists DTaP,Tdap,and Td Vaccines (3 - Td or Tdap) 01/02/2030 01/03/2020, 04/06/2000 Meningococcal ACWY Vaccine Aged Out 02/18/2017 N o longer eligible based on patient's age to complete this topic RSV Immunization Adult Patients Completed 05/05/2023 Influenza Vaccine Completed 04/25/2024, , 04/27/2022, Additional [...] age to complete this topic Meningococcal B Vaccine Aged Out No l onger eligible based on patient's age to complete this topic RSV Immunization Patients Under 20 months Aged Out No longer eligible based on patient's age to complete this topic Varicella Vaccines Aged Out No longer eligible based on patient's age to complete this topic Insurance BLUE CROSS - [place] MEDICARE ADVANTAGE Care Teams Middle School Librarian Relationship Specialty Start Date End Date Maritza Rivera PA [address] [place], [place] [phone] PCP - General Physician Glass Science Engineer 08/03/24
== END 2024-12-07 14:12 | disposition home or self-care (01) ==
LOC: HO.ENCR 13:13
PROVIDERS: PCP Physician Assistant Medical; Visit Provider Registered Nurse Diabetes Educator
DX: E11.9 Type 2 diabetes mellitus without complications (principal); Z79.4 Long term (current) use of insulin

== ENCOUNTER → 2024-12-07 13:12 | Outpatient (BNVA) | payer MEDICARE, SELFPAY | PROVIDERS: PCP Physician Assistant Medical; Visit Provider Registered Nurse Diabetes Educator | DX: E11.9 Type 2 diabetes mellitus without complications (principal); Z79.4 Long term (current) use of insulin | CPT/HCPCS: 99211 ==

== ENCOUNTER 2024-12-14 14:00 | Outpatient (AMB) | payer MEDICARE, SELFPAY ==
--- NOTE | 2024-12-13 21:01 | A.OFFVIS_ITS ---
Vital Signs 12/14/24 14:04 Height 5 ft 4.7 in Weight 176 lb 5.917 oz BMI 29.6 BP 132/80 Blood Pressure Location Rt brachial Position Sitting Pulse 66 Pulse Source Pulse Oximeter Pulse Oximetry (%) 96 Oxygen Delivery Method Room Air Intake Visit Reasons: T1DM Intake Note: Patient presents today to for a follow-up on Type 2 Diabetes Mellitus: Last Diabetic eye exam was on: 03/09/2024, No Retinopathy Last Podiatry exam was on: Does not see a Band Machine Operator Most recent HbA1c: 6.4%, 12/14/2024 Random Glucose- 200 mg/dL, Today Enterprise Sales Executive Required: No Accompanied by: Self / Same As Patient Allergies No Known Allergies [No Known Allergies*] Allergy (Verified 12/14/24 14:06) [facility] Medical History Vitamin D deficiency Low serum calcium Callus of foot Hepatic steatosis Elevated LFTs Microalbuminuria Diabetes mellitus type 2, insulin dependent Prostate cancer Depression GERD (gastroesophageal reflux disease) Hypercholesterolemia Pancreatic cancer Sleep apnea HTN (hypertension) DVT (deep venous thrombosis) Elevated cholesterol Diabetes Surgical History History of partial pancreatectomy H/O colonoscopy History of laparotomy Hx of hemorrhoidectomy Hx of appendectomy History of Whipple procedure Social History Household Members: Spouse Housing: House Patient Tobacco Use Status: Former Tobacco user Tobacco use type: Cigarette Cigarette Packs Per Day: 3 Years Smoked: 15 quit in 1989 e-Cigarette/Vaping Use: Never Used Second Hand Smoke Exposure: No service: No Current occupational status: retired Cognitive needs: No Hearing needs: Yes (hearing aid) Vision needs: Yes (glasses) Physical Exam Vital Signs: Last Vital Signs Pulse 66 12/14/24 14:04 BP 132/80 12/14/24 14:04 Pulse Ox 96 12/14/24 14:04 Oxygen Delivery Method Room Air 12/14/24 14:04 BMI result Body Mass Index 29.6 Results AMB Hemoglobin A1c AMB Hemoglobin A1c 6.4 % Last Edit by TURNER Salcedo on 12/14/24 14:23 Results Reviewed Results Reviewed: Laboratory Last Values Glucose (Clinic) 200 mg/dL (60-115) H 12/14/24 14:14 Hgb A1c (Clinic) 6.4 % (4.0-6.0) H 12/14/24 14:23 Assessment & Plan Assessment & Plan Orders: Orders AMB Hemoglobin A1c Today E11.9 - Type 2 diabetes mellitus without complications, Z79.4 - [facility] (current) use of insulin Coding
[2024-12-14 14:04] VITALS: BP 132/80; PULSE 66; O2SAT 96; BMI 29.6
[2024-12-14 14:18] LABS: Glucose, Whole Blood 200 mg/dL (60-115)
--- OUTSIDE RECORDS SUMMARY | 2024-12-14 16:15 | XMS_ITS | Clinical Summary ---
Author Organization [facility] Address [address] [place] [address] Phone Care Team Providers Care Petroleum Refinery Worker Name Role Phone Maritza Rivera Primary Care Provider [phone] Allergies Active Allergy Reactions Criticality Noted Date [...] unit/mL (3 mL) injection pen 4 Active salicylic acid 17 % gel Apply topically 1 (one) time each day. 15 g 2 5 12/14/19 25 Active Problems Problem Noted Date Diagnosed Date Prostate cancer ([facility] V24, [facility] V28) 06/27 Cancer Staging:Clinical:Stage IIIB(cT3a, cN0, cM0, PSA: 2, Grade Group: 1) - Signed by Edward Webber MD on 07/18/2024 Neuroendocrine carcinoma of pancreas ([facility] V24, [facility] V28) Encounters Date Type Department Care Team Description 11/13/2024 2:00 PM EDT Office Visit Orthopedic Surgery [facility] [address] [phone] Johnny Renteria DPM Metatarsalgia of right foot (Primary Dx); Verruca plantaris; Dermatophytosis of nail; Diabetic mononeuropathy simplex ([facility] V24, [facility] V28) 10/11/2024 Telephone Orthopedic Surgery [facility] [address] [phone] Johnny Renteria DPM 10/10/2024 1:30 PM EST Office Visit Orthopedic Surgery [facility] [address] [phone] Johnny Renteria DPM Verruca plantaris (Primary Dx); Corns and callosities; Metatarsalgia of right foot; Dermatophytosis of nail; Diabetic mononeuropathy simplex ([facility] V24, [facility] V28) from Last 3 Months Surgical History Surgery Date Site/Laterality Comments WHIPPLE PROCEDURE W/ LAPAROSCOPY CYSTOSCOPY INSERTION / REMOVAL STENT / STONE Medical History Medical History Date Comments Microscopic hematuria Kidney stones BPH (benign prostatic hyperplasia) Hypercholesterolemia Neuroendocrine carcinoma of pancreas ([facility] V2 4, [facility] V28) Family History Medical History [...] 2:15 PM EDT Office Visit Orthopedic Surgery [facility] [address] [phone] Johnny Renteria DPM [address] [address] Health Maintenance Due Date Last Done Comments [...] [place] - [place] MED[place] Care Teams Petroleum Refinery Worker Relationship Specialty Start Date End Date Maritza Rivera PA [address] [place] [address] PCP - General Physician Statistical Engineer 08/03/24
== END 2024-12-14 14:50 | disposition home or self-care (01) ==
LOC: HO.ENCR 14:01
PROVIDERS: PCP Physician Assistant Medical; Visit Provider Nurse Practitioner Adult Health
DX: E11.9 Type 2 diabetes mellitus without complications (principal); Z79.4 Long term (current) use of insulin

== ENCOUNTER → 2024-12-14 14:00 | Outpatient (BNVA) | payer MEDICARE, SELFPAY | PROVIDERS: PCP Physician Assistant Medical; Visit Provider Nurse Practitioner Adult Health | DX: E11.9 Type 2 diabetes mellitus without complications (principal); Z79.4 Long term (current) use of insulin; Z85.07 Personal history of malignant neoplasm of pancreas | CPT/HCPCS: 82947; 83036; 99212 ==

== ENCOUNTER 2025-01-11 14:33 | Outpatient (AMB) | payer MEDICARE, SELFPAY ==
--- OUTSIDE RECORDS SUMMARY | 2025-01-11 14:41 | XMS_ITS | Patient Health Record ---
Author Organization [facility] Address [address] [place] [address] Care Team Providers Care Mainspring Winder Name Role Phone LARISSA LOAIZA Primary Care Provider Keesha Amadou Ugarte Unavailable [phone] Allergies No Known Allergies Reason For Referral [...] Problem Status W/U Status Risk Notes Problem 090813357 Encounter for screening for malignant neoplasm of colon (Z12.11) Active confirmed Problem 907191822 History of adenomatous polyp of colon (Z86.010) Active confirmed Problem Screening for malignant neoplasm of rectum (391226842) Encounter for screening for malignant neoplasm of rectum (Z12.12) Active confirmed Problem 28902049 Preprocedural examination (Z01.818) Active confirmed Problem History of polyp of colon (361279602) History of colon polyps (Z86.010) Active confirmed Problem 851731174 Long-term use of aspirin therapy (Z79.82) Active confirmed Problem Diverticulosis of colon (349125883) Diverticulosis of colon (K57.30) Active confirmed Plan Of Treatment Future Test Test Name Order Date COLONOSCOPY 06/04/2016 COLONOSCOPY 12/17/2021 Insurance Providers Payer Name Payer Address Payer Phone Subscriber Number Group Number Insured Name Patient Relationship to Insured Coverage Start Date Coverage End Date [facility] [address] [place], [place] [id number] ALLIE ECHOLS Self - patient is [...] on Coumadin IDDM since the Whipple Denies ID,CVA,Lung disease,renal disease HTN Sleep apnea-uses CPAP Colonoscopy 08/2016 with 2 sm all tubular adenomas removed, small AVM in ascending colon Pancreatic cancer 2019 with Whipple at [facility]--no chemo nor XRT--had temporary biliary stent placed by ERCP post-op Surgical History Surgery Date(Month/Year) Appy- age 3 Pilonidal cyst Hemmorrhoids Whipple 2019 Abdominal surgery for fistula from the Ceci quint[facility]
--- NOTE | 2025-01-11 14:42 | MHC.PC.OV ---
Vital Signs 01/11/25 14:51 Height 5 ft 4.7 in Weight 180 lb 2 oz BMI 30.2 BP 136/72 Blood Pressure Location Rt brachial Position Sitting Pulse 66 Pulse Source Pulse Oximeter Temp 97.4 F Temp Source Temporal Artery Scan Pulse Oximetry (%) 96 Oxygen Delivery Method Room Air Intake Visit Reasons: followup med review Intake Note: Varinder presents in the office today for a medication check in. Patient has sleep apnea. Will no longer be seeing [facility] in [place] at the doctor is retiring. Allergies No Known Allergies [No Known Allergies*] Allergy (Verified 01/11/25 14:45) Tobacco use date assessed: 01/11/25 Dental Screening Dental Screen Date: 01/11/25 Did you have a dental visit in the last 12 months?: Yes Did you have a dental problem in the last 6 months where you did not have access to dental care?: No Was dental information given to patient?: Patient has dentist HPI HPI Comments History of Present Illness Details This is a 69-year-old male with a past medical history of pancreatic cancer in remission s/p Whipple 2018, depression, GERD, chronically elevated LFTs, insulin-dependent type 2 diabetes, sleep apnea on CPAP, hyperlipidemia and prostate cancer presenting for follow up. Pancreatic cancer-2018 Whipple, sees Dr. Reyes annually. Denies abdominal pain, nausea, vomiting or unexplained weight loss. On chronic PPI following Whipple. Prostate cancer-diagnosed 2023. He sees Dr. Joy. Completed radiation therapy at [facility]. Patient reports he is having a CT scan done today due microscopic hematuria. He says he did urine cytologies but doesn't know the results yet. Type 2 diabetes mellitus-diagnosed prior to having prostate cancer and Whipple, but patient says he was not on medications for it until after this. Dr. Carrasquillo is eye doctor. He has bilateral cataracts. Patient followed by [facility] endocrinology, and he is on the islet pump now. Reports labile glucose and frequent hypoglycemia treated with glucose tablets. Reports that he has an appointment with the DE to see what can be done about this. He does not drink alcohol. BG 155 currently. The patient's liver enzymes were elevated on his last labs so I previously reviewed his records from [facility]. Records stated he had an ultrasound indicating a need for a GI evaluation. It says he had an ERCP 12/29/2019 due to elevated liver enzymes and abdominal ultrasound showed hepatic steatosis with a cyst. The patient saw [facility] Gastroenterology a couple months ago. Notes requested today. Depression treated with sertraline 50 mg daily. He feels like this is working well though he does have a lot of stress around his health issues. LOTTIE-followed by [facility] sleep Medicine, but his provider is leaving. Patient is on a CPAP. [place] [address] [place] weekly with plans to repeat this test and recheck PTH. ROS: Constitutional: No unexplained weight loss, fever, chills or night sweats. Eyes: No vision changes, blurry vision, double vision, eye pain, eye redness, eye discharge. Respiratory: No shortness of breath, cough or sputum production. Cardiovascular: No chest pain, chest pressure or chest discomfort. No palpitations or pedal edema. Gastrointestinal: No anorexia, nausea, vomiting or diarrhea. No abdominal pain or blood in stool. Neurologic: No headache, dizziness, syncope, unilateral weakness, ataxia, numbness or tingling in the extremities. Skin: No rash Endocrine: No cold or heat intolerance. Psychiatric: No increased depressive symptoms. Physical exam: Constitutional: Alert, in no distress. Eyes: Pupils are equal, round and reactive to light. Extraocular muscles intact. Neck: Supple, Full range of motion. No lymphadenopathy. Respiratory: Clear to auscultation. Cardiovascular: S1 S2 regular. No murmurs. Extremities: Warm and well perfused. No clubbing, cyanosis or edema. Psychiatric: Normal mood and affect [facility] Medical History (Updated 01/11/25 @ 21:01 by PAWAN Earl) Microhematuria Vitamin D deficiency Low serum calcium Callus of foot Hepatic steatosis Elevated LFTs Microalbuminuria Diabetes mellitus type 2, insulin dependent Prostate cancer Depression GERD (gastroesophageal reflux disease) Hypercholesterolemia Pancreatic cancer Sleep apnea HTN (hypertension) DVT (deep venous thrombosis) Elevated cholesterol Diabetes Surgical History History of partial pancreatectomy H/O colonoscopy History of laparotomy Hx of hemorrhoidectomy Hx of appendectomy History of Whipple procedure Social History (Updated 01/11/25 @ 14:43 by Elise Rainey MA) Household Members: Spouse Housing: House Alcohol intake: current Alcohol intake frequency: former alcohol drinker Patient Tobacco Use Status: Former Tobacco user Tobacco use type: Cigarette Cigarette Packs Per Day: 3 Years Smoked: 15 quit in 1989 e-Cigarette/Vaping Use: Never Used Second Hand Smoke Exposure: No service: No Current occupational status: retired Current occupational exposures/hazards: No Cognitive needs: No Hearing needs: Yes (hearing aid) Vision needs: Yes (glasses) Questionnaire PHQ-9 Over the last 2 weeks, how often have you been bothered by any of the following problems? 1. Little interest or pleasure in doing things: not at all 2. Feeling down, depressed, or hopeless: not at all 3. Trouble falling or staying asleep, or sleeping too much: not at all 4. Feeling tired or having little energy: several days 5. Poor appetite or overeating: not at all 6. Feeling bad about yourself - or that you are a failure or have let yourself or your family down: not at all 7. Trouble concentrating on things, such as reading the newspaper or watching television: not at all 8. Moving or speaking so slowly that other people could have noticed. Or the opposite - being so fidgety or restless that you have been moving around a lot more than usual: not at all 9. Thoughts that you would be better off or of hurting yourself in some way: not at all Total score: 1 Depression Screening Interpretation: Negative Depression Screening Done: Yes 42987 - PHQ-9 Billing: Yes Source: Developed by Drs. Amadou Hanna, Breann Murillo, Mahamed Lynn and colleagues, with an educational shawna from [employer]. Thrive Questionnaire Date Thrive assessed: 01/11/25 I am a: Patient What is your living situation today?: I have a steady place to live Within the past 12 months, did the food you bought not last and you didn't have the money to get more?: Often true Within the past 12 months, did you worry whether your food would run out before you got money to buy more?: I choose not to answer this question Do you have trouble paying for medicines?: I choose not to answer this question Do you have trouble getting transportation to medical appointments?: No Do you have trouble paying your heating and electricity bill?: Yes Do you have trouble taking care of your child, family member or friend?: No Do you have trouble with day-to-day activities such as bathing, preparing meals, shopping, managing finances, etc.?: I choose not to answer this question Are you currently unemployed and looking for a job?: I choose not to answer this question Are you interested in more education?: No Please select the resources that you would like help with: Paying for medicine Currently or been in a relationship where the following occur: I choose not to answer THRIVE Score: 2 AUDIT C Alcohol Use Questionnaire (AUDIT-C) 1. How often do you have a drink containing alcohol?: Monthly or less 2. How many drinks containing alcohol do you have on a typical day when you are drinking?: 1 or 2 3. How often do you have six or more drinks on one occasion?: Never Total Score: 1 Score Reviewed/Action Taken: No TERRI-7 AMB Questionnaire TERRI-7 Date TERRI - 7 assessed: 01/11/25 Feeling nervous, anxious, or on edge: 0 = Not at all Not being able to stop or control worryin = Several days Worrying too much about different things: 3 = Nearly every day Trouble relaxin = Not at all Being so restless that it is hard to sit still: 0 = Not at all Becoming easily annoyed or irritable: 2 = More than half the days Feeling afraid as if something awful might happen: 2 = More than half the days Total TERRI-7 score (0-4 normal; 5-9 mild; 10-14 moderate; 15-21 severe): 8 Source: Developed by Drs. Amadou Hanna, Breann Murillo, Mahamed Lynn and colleagues, with an educational shawna from [employer]. TERRI-7 Assessment Billing TERRI-7 Assessment Tool: TERRI-7 Assessment 64226 Physical exam (Primary Care) Vital Signs: Last Vital Signs Temp 97.4 F 01/11/25 14:51 Pulse 66 01/11/25 14:51 BP 136/72 01/11/25 14:51 Pulse Ox 96 01/11/25 14:51 Oxygen Delivery Method Room Air 01/11/25 14:51 BMI result Body Mass Index 30.2 Tobacco/Smoking Status: Tobacco use Status Tobacco use date assessed 01/11/25 01/11/25 14:55 Patient Tobacco Use Status Former Tobacco user 01/11/25 14:55 Tobacco use type Cigarette 01/11/25 14:55 e-Cigarette/Vaping Use Never Used 01/11/25 14:55 PHQ-9: PHQ-9 Score PHQ-9: Total score 1 01/11/25 14:59 Depression Screening Interpretation: Negative Thrive Assessment: Date of Thrive Assessment Date Thrive assessed 01/11/25 01/11/25 14:55 Currently or been in a relationship where the following occur: I choose not to answer Coding Level of Care Code Est Pt Level 4 (13649) Complex EM visit Add On G2211 Diagnoses Diabetes mellitus type 2, insulin dependent E11.9; Z79.4 Elevated LFTs R79.89 Hepatic steatosis K76.0 Microalbuminuria R80.9 Obstructive sleep apnea syndrome G47.33 Sleep apnea type: obstructive Hypercholesterolemia E78.00 Prostate cancer C61 Malignant neoplasm of pancreas, unspecified location of malignancy C25.9 Pancreatic malignancy location: unspecified Microhematuria R31.29 Additional Codes TERRI-7 Assessment Billing - TERRI-7 Assessment Tool: TERRI-7 Assessment 08168 ([id number]) PHQ-9 - 09027 - PHQ-9 Billing: Yes ([id number]) Assessment & Plan Assessment & Plan (1) Diabetes mellitus type 2, insulin dependent: Code(s): E11.9 - Type 2 diabetes mellitus without complications; Z79.4 - assisted (current) use of insulin Category: Medical (2) Elevated LFTs: Code(s): R79.89 - Other specified abnormal findings of blood chemistry Category: Medical (3) Hepatic steatosis: Code(s): K76.0 - Fatty (change of) liver, not elsewhere classified Category: Medical (4) Microalbuminuria: Code(s): R80.9 - Proteinuria, unspecified Category: Medical (5) Sleep apnea: Comment: uses CPAP Code(s): G47.30 - Sleep apnea, unspecified Category: Medical Qualifiers: Sleep apnea type: obstructive Qualified Code(s): G47.33 - Obstructive sleep apnea (adult) (pediatric) (6) Hypercholesterolemia: Code(s): E78.00 - Pure hypercholesterolemia, unspecified Category: Medical (7) Prostate cancer: Code(s): C61 - Malignant neoplasm of prostate Category: Medical (8) Pancreatic cancer: Code(s): C25.9 - Malignant neoplasm of pancreas, unspecified Category: Medical Qualifiers: Pancreatic malignancy location: unspecified Qualified Code(s): C25.9 - Malignant neoplasm of pancreas, unspecified (9) Microhematuria: Code(s): R31.29 - Other microscopic hematuria Category: Medical Plan In summary this is a 69-year-old male with a complex past medical history who presented for follow up today. Patient has frequent hypoglycemia on the islent pump, but he's had significant improvement in his hemoglobin a1c. He is going to follow up with his endocrinology team as planned. He stays up-to-date with eye exams. Reviewed diabetic diet. I requested notes from the appointment with Gastroenterology for elevated liver enzymes/hepatic steatosis. He does not drink alcohol. Recommended Mediterranean diet. He is on a statin. Last LDL was at goal. He completed radiation therapy for prostate cancer, and I requested notes from urology. He has a CT scan today for evaluation of microscopic hematuria. No known recurrence of pancreatic cancer. He sees Dr. Reyes annually. Follow up in 3 months.
[2025-01-11 14:51] VITALS: BP 136/72; PULSE 66; TEMP 36.3; O2SAT 96; BMI 30.2
== END 2025-01-11 15:33 | disposition home or self-care (01) ==
LOC: HO.HMCFM 14:34
PROVIDERS: PCP Physician Assistant Medical; Visit Provider Physician Assistant Medical
DX: E11.9 Type 2 diabetes mellitus without complications (principal); Z79.4 Long term (current) use of insulin; C61 Malignant neoplasm of prostate; C25.9 Malignant neoplasm of pancreas, unspecified; R79.89 Other specified abnormal findings of blood chemistry; K76.0 Fatty (change of) liver, not elsewhere classified; R80.9 Proteinuria, unspecified; G47.33 Obstructive sleep apnea (adult) (pediatric); E78.00 Pure hypercholesterolemia, unspecified; R31.29 Other microscopic hematuria

== ENCOUNTER → 2025-01-11 14:33 | Outpatient (BNVA) | payer MEDICARE, SELFPAY | PROVIDERS: PCP Physician Assistant Medical; Visit Provider Physician Assistant Medical | DX: E11.9 Type 2 diabetes mellitus without complications (principal); R79.89 Other specified abnormal findings of blood chemistry; K76.0 Fatty (change of) liver, not elsewhere classified; R80.9 Proteinuria, unspecified; G47.33 Obstructive sleep apnea (adult) (pediatric); E78.00 Pure hypercholesterolemia, unspecified; C61 Malignant neoplasm of prostate; C25.9 Malignant neoplasm of pancreas, unspecified; R31.29 Other microscopic hematuria; Z79.4 Long term (current) use of insulin | CPT/HCPCS: 96127; 99212 ==

== ENCOUNTER 2025-01-18 15:17 | Outpatient (AMB) | payer MEDICARE, SELFPAY ==
--- NOTE | 2025-01-18 16:09 | MHC.AMDMED ---
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 Accompanied by: Self / Same As Patient Allergies No Known Allergies [No Known Allergies*] Allergy (Verified 01/11/25 14:45) HPI Comprehensive Diabetes Asmnt Most Recent Diabetes Results: Microalb/Creat Ratio 36.2 ug/mg cr (<30) H 03/28/24 Cholesterol 89 mg/dL (<200) 03/28/24 HDL Cholesterol 30 mg/dL (>40) L 03/28/24 Triglycerides 81 mg/dL (<150) 03/28/24 Creatinine 0.93 mg/dL (0.5-1.4) 11/16/24 Blood Urea Nitrogen 14 mg/dL (9-16) 11/16/24 Sodium 143 mmol/L (135-145) 11/16/24 Potassium 3.8 mmol/L (3.3-5.1) 11/16/24 Chloride 112 mmol/L (96-108) H 11/16/24 Carbon Dioxide 24 mmol/L (22-29) 11/16/24 Calcium 8.7 mg/dL (8.4-10.2) 11/16/24 AST 44 U/L (5-37) H 09/11/24 ALT 92 U/L (0-40) H 09/11/24 Total Protein 6.4 g/dL (6.5-8.0) L 09/11/24 Albumin 3.8 g/dL (3.5-5.0) 09/11/24 PENDING SALE TO [facility] Medical History (Updated 01/11/25 @ 21:01 by PAWAN Earl) Microhematuria Vitamin D deficiency Low serum calcium Callus of foot Hepatic steatosis Elevated LFTs Microalbuminuria Diabetes mellitus type 2, insulin dependent Prostate cancer Depression GERD (gastroesophageal reflux disease) Hypercholesterolemia Pancreatic cancer Sleep apnea HTN (hypertension) DVT (deep venous thrombosis) Elevated cholesterol Diabetes Surgical History History of partial pancreatectomy H/O colonoscopy History of laparotomy Hx of hemorrhoidectomy Hx of appendectomy History of Whipple procedure Social History (Updated 01/11/25 @ 14:43 by Elise Rainey MA) Household Members: Spouse Housing: House Alcohol intake: current Alcohol intake frequency: former alcohol drinker Patient Tobacco Use Status: Former Tobacco user Tobacco use type: Cigarette Cigarette Packs Per Day: 3 Years Smoked: 15 quit in 1989 e-Cigarette/Vaping Use: Never Used Second Hand Smoke Exposure: No service: No Current occupational status: retired Current occupational exposures/hazards: No Cognitive needs: No Hearing needs: Yes (hearing aid) Vision needs: Yes (glasses) Assessment & Plan Assessment & Plan (1) Diabetes mellitus type 2, insulin dependent: Code(s): E11.9 - Type 2 diabetes mellitus without complications; 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 The following topics were reviewed today: -Pump therapy basic concepts: Basal/bolus -For most effective glucose control bolus prior to meals - Off pump backup insulin plan iLet Alerts: ??? High Alert: 300 mg/dl ??? Low Alert: 75 mg/dl Patient concerned about amount of hypoglycemia he is experiencing, reviewed with patient when to use usual meal, less than usual meals and more than usual meals Instructed patient if not eating carbohydrates do not announce meal Factory reset done today on insulin pump The following topics were reviewed today: -Device settings: Bluetooth/mobile connection (if applicable), correct date and time, sound volume -CGM settings(if integrated system): CGM graft views and trend arrows, alerts and alarms, Start new sensor Patient instructed to only announce meals that have carbohydrates For the 1st 7 days: Eat meals that have usual amount of carbs for you in announce them as usual Wait at least 4 hours between eating meals with carbs and announcing again If you are eating between meals, low carb snacks are the best option. Announce meal right away when you start eating If you forget and is more than 30 minutes since started eating do not announce Avoid over treating lows, this can cause hyperglycemia, which will initiate pump to deliver correction bolus We were 1 able to pair insulin pump to smart phone at today's visit, removed and downloaded new marge on to patient's cell phone. Pump still would not connect. Recommended to patient he try to pair pump when he gets home, if he is unable to pair pump call [employer] customer service for IT assistance Instructed patient to only use room temperature insulin, how to load cartridge or fill pod, with insulin. Fill tubing and cannula (if applicable) Troubleshooting after starting new pod or inserting new insulin set: Occlusion, adhesive tape sensitivity, redness Check BG 2 hours after site change Reviewed Safety information: Importance of a backup plan, for manual injections, proper prescriptions and emergency supplies ketone strips, and rules for testing for ketones Patient understands the basic concepts of pump therapy, how to give insulin for meals and snacks, how to troubleshoot for hyper and hypoglycemia. Patient will follow up with [facility] as instructed Patient will contact [facility] with questions or concerns, patient given IT number to support in any technical issues related to insulin pump Portions of this note were created using voice recognition software, please excuse any words or phrases that may have been misinterpreted. Patient Instructions: Patient will follow-up in 2 weeks Coding Level of Care Code Est Pt Level 1 (45058) Diagnoses Diabetes mellitus type 2, insulin dependent E11.9; Z79.4
--- OUTSIDE RECORDS SUMMARY | 2025-01-18 17:51 | XMS_ITS | Patient Health Record ---
Author Organization [facility] Address [address] [place] [address] Care Team Providers Care Die Casting Supervisor Name Role Phone LARISSA LOAIZA Primary Care Provider Keesha Amadou Ugarte Unavailable [phone] Allergies No Known Allergies Reason For Referral [...] Problem Status W/U Status Risk Notes Problem [id number] Encounter for screening for malignant neoplasm of colon (Z12.11) Active confirmed Problem 157838978 History of adenomatous polyp of colon (Z86.010) Active confirmed Problem Screening for malignant neoplasm of rectum (519622595) Encounter for screening for malignant neoplasm of rectum (Z12.12) Active confirmed Problem 25968076 Preprocedural examination (Z01.818) Active confirmed Problem History of polyp of colon (638400356) History of colon polyps (Z86.010) Active confirmed Problem 742427138 Long-term use of aspirin therapy (Z79.82) Active confirmed Problem Diverticulosis of colon (092753506) Diverticulosis of colon (K57.30) Active confirmed Plan Of Treatment Future Test Test Name Order Date COLONOSCOPY 06/04/2016 COLONOSCOPY 12/17/2021 Insurance Providers Payer Name Payer Address Payer Phone Subscriber Number Group Number Insured Name Patient Relationship to Insured Coverage Start Date Coverage End Date [facility] [address] [place], [place] [id number] ALLIE ECHOLS Self - patient is [...] on Coumadin IDDM since the Whipple Denies [place],CVA,Lung disease,renal disease HTN Sleep apnea-uses CPAP Colonoscopy 08/2016 with 2 sm all tubular adenomas removed, small AVM in ascending colon Pancreatic cancer 2019 with Whipple at [facility]--no chemo nor XRT--had temporary biliary stent placed by ERCP post-op Surgical History Surgery Date(Month/Year) Appy- age 3 Pilonidal cyst Hemmorrhoids Whipple 2019 Abdominal surgery for fistula from the [facility]
== END 2025-01-18 16:29 | disposition home or self-care (01) ==
LOC: HO.ENCR 15:17
PROVIDERS: PCP Physician Assistant Medical; Visit Provider Registered Nurse Diabetes Educator
DX: E11.9 Type 2 diabetes mellitus without complications (principal); Z79.4 Long term (current) use of insulin

== ENCOUNTER → 2025-01-18 15:17 | Outpatient (BNVA) | payer MEDICARE, SELFPAY | PROVIDERS: PCP Physician Assistant Medical; Visit Provider Registered Nurse Diabetes Educator | DX: E11.9 Type 2 diabetes mellitus without complications (principal); Z79.4 Long term (current) use of insulin | CPT/HCPCS: 99211 ==

== ENCOUNTER 2025-01-25 12:45 | Outpatient (AMB) | payer MEDICARE, SELFPAY ==
[2025-01-25 13:01] VITALS: BP 130/80; PULSE 65; O2SAT 95
--- NOTE | 2025-01-25 13:01 | MHC.OFFWIV ---
Intake Vital Signs 01/25/25 13:01 Weight 179 lb 8 oz BP 130/80 Blood Pressure Location Rt brachial Position Sitting Pulse 65 Pulse Source Pulse Oximeter Pulse Oximetry (%) 95 Oxygen Delivery Method Room Air Intake Visit Reasons: EP-lt side of ribs pain from a fall Intake Note: Patient here for left sided rib pain after a fall in the yard a couple of days ago Patient Tobacco Use Status: Former Tobacco user Allergies No Known Allergies [No Known Allergies*] Allergy (Verified 01/25/25 13:02) Do you need a note to return to daycare/school/sports/work: No HPI HPI Comments History of Present Illness Details History of Present Illness - The patient is a 69-year-old male presenting with left-sided rib pain following a fall. - The incident occurred a week ago when the patient fell on his left side, impacting the ribs. - The patient experiences pain when taking deep breaths, standing up, and sitting down. Breathing while leaning left helps reduce the pain a little. - Rebc-vsl-[id number] Tylenol has been used with limited relief. - The patient has a history of diabetes mellitus following a Whipple procedure, resulting in difficulty controlling blood glucose levels. - The patient experiences hypoglycemic episodes, particularly at night, with blood glucose levels dropping to 40-50 mg/dL. - The patient uses an insulin pump and has been adjusting settings with the help of an monitor worker. - Recent A1c level is 6.4, improved from 10.4 in June. Physical Exam General: Cooperative, healthy appearing, comfortable, no acute distress and well developed Orientation: Patient oriented x3 Limitations: No limitations Head: Normal to inspection Ears: Hearing grossly normal bilaterally Nose: Normal External nose present Face and sinus: Normal facial exam Eyes: Appearance normal, both eyes and all related structures Neck: Normal visual inspection and Yes full ROM Chest: TTP mid axillary line ribs 9-10 Respiratory: Painful to take a deep breath, clear to auscultation bilaterally Cardiovascular: Regular rate and rhythm. Normal S1 and S2 Skin: No rashes or lesions noted Neuro: Patient oriented x3 Extremities: Normal to inspection [facility] Medical History (Updated 01/25/25 @ 13:28 by Xena Peralta PA-C) Microhematuria Vitamin D deficiency Low serum calcium Callus of foot Hepatic steatosis Elevated LFTs Microalbuminuria Diabetes mellitus type 2, insulin dependent Prostate cancer Depression GERD (gastroesophageal reflux disease) Hypercholesterolemia Pancreatic cancer Sleep apnea HTN (hypertension) DVT (deep venous thrombosis) Elevated cholesterol Diabetes Surgical History History of partial pancreatectomy H/O colonoscopy History of laparotomy Hx of hemorrhoidectomy Hx of appendectomy History of Whipple procedure Social History (Updated 01/11/25 @ 14:43 by Elise Rainey MA) Household Members: Spouse Housing: House Alcohol intake: current Alcohol intake frequency: former alcohol drinker Patient Tobacco Use Status: Former Tobacco user Tobacco use type: Cigarette Cigarette Packs Per Day: 3 Years Smoked: 15 quit in 1989 e-Cigarette/Vaping Use: Never Used Second Hand Smoke Exposure: No service: No Current occupational status: retired Current occupational exposures/hazards: No Cognitive needs: No Hearing needs: Yes (hearing aid) Vision needs: Yes (glasses) Review of Systems Const All systems reviewed & are unremarkable except as noted in HPI and below Physical Exam Vital Signs: Last Vital Signs Pulse 65 01/25/25 13:01 BP 130/80 01/25/25 13:01 Pulse Ox 95 01/25/25 13:01 Oxygen Delivery Method Room Air 01/25/25 13:01 Assessment & Plan Assessment & Plan (1) Fall: Code(s): W19.XXXA - Unspecified fall, initial encounter Qualifiers: Encounter type: initial encounter Qualified Code(s): W19.XXXA - Unspecified fall, initial encounter Plan: - Obtain a chest and rib X-ray to assess for fractures or other abnormalities. - Continue monitoring blood glucose levels and adjust insulin pump settings as needed with monitor worker guidance. - Consider dietary adjustments to manage hypoglycemic episodes, such as incorporating low-carb snacks before bed. Patient was informed and verbally consented to the use of an ambient scribe for clinic note documentation during this visit. (2) Inspiratory pain: Code(s): R07.1 - Chest pain on breathing Plan: as above Orders: Orders XR ribs LT min 3V w CXR1V Today R07.1 - Chest pain on breathing, W19.XXXA - Unspecified fall, initial encounter Coding Level of Care Code Est Pt Level 4 (02688) Diagnoses Fall, initial encounter W19.XXXA Encounter type: initial encounter Inspiratory pain R07.1
--- OUTSIDE RECORDS SUMMARY | 2025-01-25 14:41 | XMS_ITS | Patient Health Record ---
Author Organization [facility] Address [address] [place] [address] Care Team Providers Care Bearing Ring Assembler Name Role Phone LARISSA LOAIZA Primary Care Provider Keesha Amadou Ugarte Unavailable [phone] Allergies No Known Allergies Reason For Referral [...] Problem Status W/U Status Risk Notes Problem [id number] Encounter for screening for malignant neoplasm of colon (Z12.11) Active confirmed Problem 394392965 History of adenomatous polyp of colon (Z86.010) Active confirmed Problem Screening for malignant neoplasm of rectum (083746355) Encounter for screening for malignant neoplasm of rectum (Z12.12) Active confirmed Problem 56524657 Preprocedural examination (Z01.818) Active confirmed Problem History of polyp of colon (321969295) History of colon polyps (Z86.010) Active confirmed Problem 439399747 Long-term use of aspirin therapy (Z79.82) Active confirmed Problem Diverticulosis of colon (582693425) Diverticulosis of colon (K57.30) Active confirmed Plan Of Treatment Future Test Test Name Order Date COLONOSCOPY 06/04/2016 COLONOSCOPY 12/17/2021 Insurance Providers Payer Name Payer Address Payer Phone Subscriber Number Group Number Insured Name Patient Relationship to Insured Coverage Start Date Coverage End Date [facility] [address] [place], [place] [id number] [phone] [id number] ALLIE ECHOLS Self - patient is [...] colon Pancreatic cancer 2019 with Whipple at [facility]--no chemo nor XRT--had temporary biliary stent placed by ERCP post-op Surgical History Surgery Date(Month/Year) Appy- age 3 Pilonidal cyst Hemmorrhoids Whipple 2019 Abdominal surgery for fistula from the [facility]
== END 2025-01-25 13:34 | disposition home or self-care (01) ==
PROVIDERS: PCP Physician Assistant Medical; Visit Provider Physician Assistant
DX: R07.1 Chest pain on breathing (principal); W19.XXXA Unspecified fall, initial encounter

== ENCOUNTER 2025-01-25 12:45 | Outpatient (REF) | payer MEDICARE, SELFPAY ==
--- NOTE | ~2025-01-25 | XR_ITS ---
EXAMINATION: XR RIBS 3 VIEWS MINIMUM WITH CHEST LEFT HISTORY: W19.XXXA - Unspecified fall, initial encounter COMPARISON: There are seen is made with the prior examination of the chest dated 08/31/2016. FINDINGS: A single PA view of the chest and 3 views of the left ribs are submitted. There is linear subsegmental atelectasis at the left lung base. The right lung is clear. There is no pleural effusion, pneumothorax, or pulmonary vascular congestion. The heart is normal in size. There is a nondisplaced fracture of the left 7th rib. XR/XR ribs LT min 3V w CXR1V IMPRESSION: Nondisplaced fracture of the left 7th rib. Electronically signed by: Amadou Wood MD 01/25/2025 02:34 PM EDT
== END 2025-01-25 12:46 | disposition home or self-care (01) ==
LOC: HO.HMGCX 12:45
PROVIDERS: PCP Physician Assistant Medical; Visit Provider Physician Assistant
DX: R07.1 Chest pain on breathing (principal); Z91.81 History of falling
CPT/HCPCS: 71101; 99212

== ENCOUNTER → 2025-01-25 13:32 | Outpatient (BNV) | payer MEDICARE, SELFPAY | PROVIDERS: PCP Physician Assistant Medical; Visit Provider Radiology Diagnostic Radiology | DX: S22.32XA Fracture of one rib, left side, initial encounter for closed fracture (principal) | CPT/HCPCS: 71101 ==

== ENCOUNTER 2025-02-05 07:18 | Outpatient (AMB) | payer MEDICARE, SELFPAY ==
--- OUTSIDE RECORDS SUMMARY | 2025-02-05 07:20 | XMS_ITS | Patient Health Record ---
Author Organization [facility] Address [address] [place] [address] Care Team Providers Care Adult Basic Studies Teacher Name Role Phone LARISSA LOAIZA Primary Care Provider Keesha Amadou Ugarte Unavailable [phone] Allergies No Known Allergies Reason For Referral [...] Problem Status W/U Status Risk Notes Problem 715395159 Encounter for screening for malignant neoplasm of colon (Z12.11) Active confirmed Problem 462512392 History of adenomatous polyp of colon (Z86.010) Active confirmed Problem Screening for malignant neoplasm of rectum (537399151) Encounter for screening for malignant neoplasm of rectum (Z12.12) Active confirmed Problem 99126534 Preprocedural examination (Z01.818) Active confirmed Problem History of polyp of colon (394690438) History of colon polyps (Z86.010) Active confirmed Problem 427618524 Long-term use of aspirin therapy (Z79.82) Active confirmed Problem Diverticulosis of colon (850936157) Diverticulosis of colon (K57.30) Active confirmed Plan Of Treatment Future Test Test Name Order Date COLONOSCOPY 06/04/2016 COLONOSCOPY 12/17/2021 Insurance Providers Payer Name Payer Address Payer Phone Subscriber Number Group Number Insured Name Patient Relationship to Insured Coverage Start Date Coverage End Date [facility] [address] [place], [place] [id number] [phone] [id number] ALLIE ECHOLS Self - patient is [...] on Coumadin IDDM since the Whipple Denies [place],CVA,Lung disease,renal disease HTN Sleep apnea-uses CPAP Colonoscopy 08/2016 with 2 sm all tubular adenomas removed, small AVM in ascending colon Pancreatic cancer 2019 with Whipple at [facility]--no chemo nor XRT--had temporary biliary stent placed by ERCP post-op Surgical History Surgery Date(Month/Year) Appy- age 3 Pilonidal cyst Hemmorrhoids Whipple 2019 Abdominal surgery for fistula from the [facility]
--- NOTE | 2025-02-05 07:55 | A.OFFVIS_ITS ---
Intake Intake Visit Reasons: 60 min Instructor Dancing Required: No Accompanied by: Self / Same As Patient Allergies No Known Allergies (No Known Allergies*) Allergy (Verified 01/25/25 13:02) [facility] Medical History (Updated 01/25/25 @ 13:28 by Xena Peralta PA-C) Microhematuria Vitamin D deficiency Low serum calcium Callus of foot Hepatic steatosis Elevated LFTs Microalbuminuria Diabetes mellitus type 2, insulin dependent Prostate cancer Depression GERD (gastroesophageal reflux disease) Hypercholesterolemia Pancreatic cancer Sleep apnea HTN (hypertension) DVT (deep venous thrombosis) Elevated cholesterol Diabetes Surgical History History of partial pancreatectomy H/O colonoscopy History of laparotomy Hx of hemorrhoidectomy Hx of appendectomy History of Whipple procedure Social History (Updated 01/11/25 @ 14:43 by Elise Rainey MA) Household Members: Spouse Housing: House Alcohol intake: current Alcohol intake frequency: former alcohol drinker Patient Tobacco Use Status: Former Tobacco user Tobacco use type: Cigarette Cigarette Packs Per Day: 3 Years Smoked: 15 quit in 1989 e-Cigarette/Vaping Use: Never Used Second Hand Smoke Exposure: No service: No Current occupational status: retired Current occupational exposures/hazards: No Cognitive needs: No Hearing needs: Yes (hearing aid) Vision needs: Yes (glasses) Assessment & Plan Assessment & Plan (1) Diabetes mellitus type 2, insulin dependent: Code(s): E11.9 - Type 2 diabetes mellitus without complications; Z79.4 - snf (current) use of insulin Plan: Patient presents for pump training for iLet pump and CGM training today. The following topics were reviewed today: -Pump therapy basic concepts: Basal/bolus -For most effective glucose control bolus prior to meals - Off pump backup insulin plan iLet Alerts: ??? High Alert: 300 mg/dl ??? Low Alert: 75 mg/dl Patient reports that he is having less episodes of hypoglycemia, then before factory reset. Reviewed with patient not to overtreat hypoglycemia, start with 2 glucose tabs as opposed to 4 glucose tabs. Announce meals when eating, if it is more than 30 minutes after meal do not announce meal. Overall patient is satisfied with the way glucose levels have been running in the last 14 days Reminded patient he must be seen every 3 months by provider in order to continue to receive insulin supplies Message sent to Endocrine GOLF BALL COVER TREATER to complete last visit note is reliable Diabetes is looking for documentation for last visit Reviewed Safety information: Importance of a backup plan, for manual injections, proper prescriptions and emergency supplies ketone strips, and rules for testing for ketones Patient understands the basic concepts of pump therapy, how to give insulin for meals and snacks, how to troubleshoot for hyper and hypoglycemia. Patient will [facility] with [facility] as instructed Patient will contact [facility] with questions or concerns, patient has IT number to support in any technical issues related to insulin pump Portions of this note were created using voice recognition software, please excuse any words or phrases that may have been misinterpreted. Coding Level of Care Code Est Pt Level 1 (69575) Diagnoses Diabetes mellitus type 2, insulin dependent E11.9; Z79.4
== END 2025-02-05 08:00 | disposition home or self-care (01) ==
LOC: HO.ENCR 07:18
PROVIDERS: PCP Physician Assistant Medical; Visit Provider Registered Nurse Diabetes Educator
DX: E11.9 Type 2 diabetes mellitus without complications (principal); Z79.4 Long term (current) use of insulin

== ENCOUNTER → 2025-02-05 07:18 | Outpatient (BNVA) | payer MEDICARE, SELFPAY | PROVIDERS: PCP Physician Assistant Medical; Visit Provider Registered Nurse Diabetes Educator | DX: E11.9 Type 2 diabetes mellitus without complications (principal); Z96.41 Presence of insulin pump (external) (internal); Z46.81 Encounter for fitting and adjustment of insulin pump | CPT/HCPCS: 99211 ==

== ENCOUNTER 2025-02-12 09:38 | Outpatient (REF) | payer MEDICARE, SELFPAY ==
--- OUTSIDE RECORDS SUMMARY | 2025-02-12 10:01 | XMS_ITS | Patient Health Record ---
Author Organization [facility] Address [address] [place] [address] Care Team Providers Care Dye Automation Operator Name Role Phone LARISSA LOAIZA Primary Care Provider Keesha Amadou Ugarte Unavailable [phone] Allergies No Known Allergies Reason For Referral [...] Problem Status W/U Status Risk Notes Problem 638294394 Encounter for screening for malignant neoplasm of colon (Z12.11) Active confirmed Problem 169411988 History of adenomatous polyp of colon (Z86.010) Active confirmed Problem Screening for malignant neoplasm of rectum (938946867) Encounter for screening for malignant neoplasm of rectum (Z12.12) Active confirmed Problem 99442488 Preprocedural examination (Z01.818) Active confirmed Problem History of polyp of colon (271284878) History of colon polyps (Z86.010) Active confirmed Problem 565542687 Long-term use of aspirin therapy (Z79.82) Active confirmed Problem Diverticulosis of colon (449106335) Diverticulosis of colon (K57.30) Active confirmed Plan Of Treatment Future Test Test Name Order Date COLONOSCOPY 06/04/2016 COLONOSCOPY 12/17/2021 Insurance Providers Payer Name Payer Address Payer Phone Subscriber Number Group Number Insured Name Patient Relationship to Insured Coverage Start Date Coverage End Date [facility] [address] [place], [place] [id number] ALLIE ECHOLS Self - patient is [...] on Coumadin IDDM since the Whipple Denies [place],CVA,Lung disease,renal disease HTN Sleep apnea-uses CPAP Colonoscopy 08/2016 with 2 sm all tubular adenomas removed, small AVM in ascending colon Pancreatic cancer 2019 with Whipple at [facility]--no chemo nor XRT--had temporary biliary stent placed by ERCP post-op Surgical History Surgery Date(Month/Year) Appy- age 3 Pilonidal cyst Hemmorrhoids Whipple 2019 Abdominal surgery for fistula from the [facility]
[2025-02-12 11:58] LABS: Parathyroid Hormone Intact 117.3 pg/mL (8.7-77.1)
[2025-02-12 14:59] LABS: Anion Gap 10 (12-20); Blood Urea Nitrogen 9 mg/dL (9-16); Calcium 8.3 mg/dL (8.4-10.2); Carbon Dioxide 24 mmol/L (22-29); Chloride 113 mmol/L (96-108); Estimated Glomerular Filt Rate > 60; Glucose Random 196 mg/dL (60-115); Potassium 3.6 mmol/L (3.3-5.1); Sodium 143 mmol/L (135-145)
[2025-02-13 06:18] LABS: C Peptide 0.57 ng/mL (0.80-3.85)
[2025-02-19 01:08] LABS: Vitamin D 25-OH, D2 <4 ng/mL; Vitamin D 25-OH, D3 26 ng/mL; Vitamin D 25-OH, Total 26 ng/mL (30-100)
== END 2025-02-12 09:39 | disposition home or self-care (01) ==
LOC: HO.WFDLDS 09:38
PROVIDERS: Nurse Practitioner Adult Health; Visit Provider Physician Assistant Medical
DX: R79.89 Other specified abnormal findings of blood chemistry (principal); M85.80 Other specified disorders of bone density and structure, unspecified site; E11.9 Type 2 diabetes mellitus without complications; E55.9 Vitamin D deficiency, unspecified
CPT/HCPCS: 36415; 80048; 82306; 83970; 84681

== ENCOUNTER 2025-03-29 13:08 | Outpatient (REF) | payer MEDICARE, SELFPAY ==
[2025-03-29 17:38] LABS: MANUAL DIFF FLAG NO
[2025-03-29 18:07] LABS: Parathyroid Hormone Intact 145.4 pg/mL (8.7-77.1)
[2025-03-29 18:08] LABS: Alanine Aminotransferase 34 U/L (0-40); Albumin Level 4.1 g/dL (3.5-5.0); Alkaline Phosphatase 113 U/L (39-117); Anion Gap 12 (12-20); Aspartate Amino Transferase 35 U/L (5-37); Blood Urea Nitrogen 8 mg/dL (9-16); Calcium 8.6 mg/dL (8.4-10.2); Carbon Dioxide 29 mmol/L (22-29); Chloride 108 mmol/L (96-108); Estimated Glomerular Filt Rate > 60; Magnesium 2.2 mg/dL (1.6-2.6); Potassium 3.9 mmol/L (3.3-5.1); Sodium 145 mmol/L (135-145); Total Protein 6.5 g/dL (6.5-8.0)
[2025-03-29 18:12] LABS: Hematocrit 45.5 % (42.0-52.0); Hemoglobin 15.2 g/dl (14.0-18.0); Imm Gran Abs Auto 0.01 X10*3/uL (0.00-0.03); Imm Gran Pct Auto 0.2 % (0.0-0.4); Lymphocytes Absolute Auto 0.6 X10*3/uL (1.2-4.9); Mean Corpuscular HGB Conc 33.4 g/dl (31.0-36.0); Mean Corpuscular Hemoglobin 29.2 pg (27.0-33.0); Mean Corpuscular Volume 87.5 fL (80.0-98.0); NRBC Abs Auto 0.000 X10*3/uL (0.0-0.012); NRBC Pct Auto 0.0 /100WBC (0.0-0.2); Platelet Count 212 X10*3/uL (160-400); Red Blood Count 5.20 X10*6/uL (4.60-5.80); White Blood Count 4.9 X10*3/uL (4.8-10.8)
[2025-04-03 15:34] LABS: Vitamin D 25-OH, D2 <4 ng/mL; Vitamin D 25-OH, D3 27 ng/mL; Vitamin D 25-OH, Total 27 ng/mL (30-100)
== END 2025-03-29 13:09 | disposition home or self-care (01) ==
LOC: HO.WFDLDS 13:08
PROVIDERS: PCP Physician Assistant Medical; Visit Provider Physician Assistant Medical
DX: R55 Syncope and collapse (principal); E55.9 Vitamin D deficiency, unspecified; R79.89 Other specified abnormal findings of blood chemistry; I10 Essential (primary) hypertension
CPT/HCPCS: 36415; 80053; 82306; 83735; 83970; 84443; 85025; 93005; 99212

== ENCOUNTER 2025-03-29 13:08 | Outpatient (AMB) | payer MEDICARE, SELFPAY ==
[2025-03-29 13:10] VITALS: BP 140/82; PULSE 64; RESP 14; TEMP 36.7; O2SAT 95
--- NOTE | 2025-03-29 13:10 | MHC.PC.OV ---
Vital Signs 03/29/25 13:10 BP 140/82 H Blood Pressure Location Lt brachial Position Sitting Respiration 14 Pulse 64 Pulse Source Pulse Oximeter Temp 98.1 F Temp Source Temporal Artery Scan Pulse Oximetry (%) 95 Oxygen Delivery Method Room Air Intake Visit Reasons: Syncope Allergies No Known Allergies (No Known Allergies*) Allergy (Verified 01/25/25 13:02) Tobacco use date assessed: 01/11/25 Dental Screening Dental Screen Date: 01/11/25 HPI HPI Comments History of Present Illness Details 79-year-old male with a past medical history of pancreatic cancer in remission status post Whipple 2019, depression, GERD, chronically elevated LFTs, insulin-dependent type 2 diabetes on pump, sleep apnea on CPAP, hyperlipidemia and prostate cancer presents for syncope. I was seeing his for a visit today and added him to my schedule due to concerns about syncope. He endorses 2 episodes within the past 2 months. The most recent episode was a month ago. He was outside with his doing some work in the yard. He felt completely normal. The next thing he knew he woke up on the ground. His was with him and said he just passed out without warning. He bumped the back of his head, but he did not suffer any serious injury or seek medical attention. He felt fine the rest of the day. The 1st episode was about 2 months ago. He was in his home at night. He has been in bed but got up and was walking, and he again says it was like a ?light switch was flipped. ? He was fine 1 moment, and then he woke up on the floor. He denies prodromal symptoms to syncope such as nausea, dizziness/lightheadedness, blurry vision, weakness. Denies chest pain, palpitations, shortness of breath. Denies exertional dyspnea. He has not been experiencing neurologic symptoms such as headaches, dizziness, vision changes, numbness, tingling or weakness. He does not have a history of cardiovascular disease. Patient does not think this is related to blood sugar because he has a Dexcom sensor, and it did not alert to hyper or hypoglycemia at the time of these events, and he reports always having symptoms when he has low blood sugar. ROS: Constitutional: No unexplained weight loss, fever, chills, fatigue or night sweats. Eyes: No vision changes, blurry vision, double vision, eye pain, eye redness, eye discharge. Respiratory: No shortness of breath, cough or sputum production. Cardiovascular: No chest pain, chest pressure or chest discomfort. No palpitations or pedal edema. Gastrointestinal: No anorexia, nausea, vomiting or diarrhea. No abdominal pain Genitourinary: No dysuria, hematuria, urinary frequency. Neurologic: No headache, dizziness, weakness, ataxia, memory loss, numbness, tingling, tremors, convulsions or seizures. Physical exam: Constitutional: Alert, in no distress. Head: Normocephalic. Eyes: Pupils are equal, round and reactive to light. Extraocular muscles intact. Neck: Supple, Full range of motion. No lymphadenopathy. No palpable thyroid masses. Respiratory: Clear to auscultation. Cardiovascular: S1 S2 regular. No murmurs. No carotid bruits. Gastrointestinal: Abdomen soft, non-tender, non-distended. Normal bowel sounds. No palpable masses. Genitourinary: No costovertebral angle tenderness. Neurologic:?Alert and oriented x 3, no focal deficits observed, CN 2-12 intact, [id number] normal, sensation equal and symmetric, strength UE and LE 5/5 bilaterally, reflexes equal and symmetric.? Normal gait.? Patient able to heel walk, toe walk and walk heel-to-toe across the floor.? No pronator drift.? Negative Romberg. Skin: No rashes Extremities: Warm and well perfused. No clubbing, cyanosis or edema. Intact peripheral pulses bilaterally. Psychiatric: Normal mood and affect ON LICENSE OF [facility] Medical History (Updated 03/30/25 @ 17:17 by PAWAN Earl) Syncope Microhematuria Vitamin D deficiency Low serum calcium Callus of foot Hepatic steatosis Elevated LFTs Microalbuminuria Diabetes mellitus type 2, insulin dependent Prostate cancer Depression GERD (gastroesophageal reflux disease) Hypercholesterolemia Pancreatic cancer Sleep apnea HTN (hypertension) DVT (deep venous thrombosis) Elevated cholesterol Diabetes Surgical History History of partial pancreatectomy H/O colonoscopy History of laparotomy Hx of hemorrhoidectomy Hx of appendectomy History of Whipple procedure Social History (Updated 01/11/25 @ 14:43 by Elise Rainey MA) Household Members: Spouse Housing: House Alcohol intake: current Alcohol intake frequency: former alcohol drinker Patient Tobacco Use Status: Former Tobacco user Tobacco use type: Cigarette Cigarette Packs Per Day: 3 Years Smoked: 15 quit in 1989 e-Cigarette/Vaping Use: Never Used Second Hand Smoke Exposure: No service: No Current occupational status: retired Current occupational exposures/hazards: No Cognitive needs: No Hearing needs: Yes (hearing aid) Vision needs: Yes (glasses) Questionnaire Thrive Questionnaire Date Thrive assessed: 10/09/24 TERRI-7 AMB Questionnaire TERRI-7 Date TERRI - 7 assessed: 01/11/25 Source: Developed by Drs. Amadou Hanna, Breann Murillo, Mahamed Lynn and colleagues, with an educational shawna from [employer]. Physical exam (Primary Care) Vital Signs: Last Vital Signs Temp 98.1 F 03/29/25 13:10 Pulse 64 03/29/25 13:10 Resp 14 03/29/25 13:10 BP 140/82 H 03/29/25 13:10 Pulse Ox 95 03/29/25 13:10 Oxygen Delivery Method Room Air 03/29/25 13:10 Tobacco/Smoking Status: Tobacco use Status Tobacco use date assessed 01/11/25 03/29/25 13:12 Patient Tobacco Use Status Former Tobacco user 03/29/25 13:12 Tobacco use type Cigarette 03/29/25 13:12 e-Cigarette/Vaping Use Never Used 03/29/25 13:12 Thrive Assessment: Date of Thrive Assessment Date Thrive assessed 10/09/24 03/29/25 13:12 Office Procedures EKG Details: EKG shows normal sinus rhythm, ventricular rate 60 beats per minute, right bundle branch block 03339-Ouzibjuwhgcldgene, Complete Coding Level of Care Code Est Pt Level 4 (23371) Complex EM visit Add On G2211 Diagnoses Syncope, unspecified syncope type R55 Syncope type: unspecified CPT Codes EKG - CPT: 04809-Fnqiupbbzcimsaoix, Complete ([id number]) Assessment & Plan Assessment & Plan (1) Syncope: Code(s): R55 - Syncope and collapse Category: Medical Qualifiers: Syncope type: unspecified Qualified Code(s): R55 - Syncope and collapse Plan Patient presents with symptoms concerning for potential cardiogenic syncope given lack of prodromal symptoms and quick recovery. EKG today shows normal sinus rhythm with right bundle branch block. No high-degree heart block or arrhythmia on EKG. Differential includes seizures however he has no convulsions or postictal symptoms. Neurologic exam is intact. Denies neurologic red flags. Intracranial lesion less likely. Begin workup with echo and Holter and urgent referral to Cardiology. Patient will have labs completed today. Strongly advised patient if he has another episode to call 911. Orders: Orders AMB EKG-In Office 03/29/25 R55 - Syncope and collapse TSH reflex Free T4 03/29/25 R55 - Syncope and collapse Complete Blood Count Auto Diff 03/29/25 R55 - Syncope and collapse ECG holter monitor 48 hour 03/29/25 R55 - Syncope and collapse CA echo transthoracic complete 03/29/25 R55 - Syncope and collapse Vitamin D 25-OH (D2 and D3) 03/29/25 E55.9 - Vitamin D deficiency, unspecified Comprehensive Met. Panel 03/29/25 R55 - Syncope and collapse Magnesium 03/29/25 R55 - Syncope and collapse Referrals Cardiology Referral R55 - Syncope and collapse
--- OUTSIDE RECORDS SUMMARY | 2025-03-29 14:00 | XMS_ITS | Clinical Summary ---
Author Organization [facility] Address [address] [place] [address] Phone Care Team Providers Care Purification Director Name Role Phone Maritza Rivera Primary Care Provider [phone] Allergies Active Allergy Reactions Criticality Noted Date [...] Problem Noted Date Diagnosed Date Prostate cancer ([facility] V24, [facility] V28) 06/27 Cancer Staging:Clinical:Stage IIIB(cT3a, cN0, cM0, PSA: 2, Grade Group: 1) - Signed by Edward Webber MD on 07/18/2024 Neuroendocrine carcinoma of pancreas ([facility] V24, [facility] V28) Encounters Date Type Department Care Team Description 02/05/2025 2:15 PM EDT Office Visit Orthopedic Surgery - [address] [address] Johnny Renteria, DPM Metatarsalgia of right foot (Primary Dx); Dermatophytosis of nail; Diabetic mononeuropathy simplex ([facility] V24, [facility] V28); Verruca plantaris from Last 3 Months Surgical History Surgery Date Site/Laterality Comments WHIPPLE PROCEDURE W/ LAPAROSCOPY CYSTOSCOPY INSERTION / REMOVAL STENT / STONE Medical History Medical History Date Comments Microscopic hematuria Kidney stones BPH (benign prostatic hyperplasia) Hypercholesterolemia Neuroendocrine carcinoma of pancreas ([facility] V2 4, [facility] V28) Family History Medical History [...] 10/10/2024 1:04 PM EST Plan of Treatment Health Maintenance Due Date Last Done Comments Diabetes: Annual GFR (Glomerular Filtration Rate) 1955 Diabetes: Annual Foot Exam 1965 Diabetes: Annual Retina Eye Exam 1965 Zoster Vaccines (1 of 2) 1974 Pneumococcal Vaccine: 50+ Years (2 of 2 - PCV) 09/07/2012 09/07/2011 Abdominal Aortic Aneurysm (AAA) Screen 05/23/2024 Cholesterol Screening (Lipid Panel) 05/23/2024 Colorectal Cancer Screening: Colonoscopy 05/23/2024 Falls Risk Assessment 05/23/2024 Hepatitis C Screening 05/23/2024 Medicare Annual Wellness Visit 05/23/2024 Social Influencers of Health Screening 05/23/2024 Diabetes: Annual Urine Albumin-Creatinine Ratio (uACR) 07/18/2024 Diabetes: Blood Sugar Control Test (HGBA1C) 07/18/2024 Hypertension/CHF/CAD Annual BMP Blood Test 07/18/2024 Depression Screening 08/16/2024 COVID-19 Vaccine (8 - Mixed Product risk season) 2024 04/25/2024, 05/05/2023, 04/27/2022, Additional history exists Influenza Vaccine (#1) 2025 4, 04/30/2023, 04/27/2022, Additional history exists DTaP,Tdap,and Td Vaccines (3 - Td or Tdap) 01/02/2030 01/03/2020, 04/06/2000 Meningococcal ACWY Vaccine Aged Out 02/18/2017 N o longer eligible based on patient's age to complete this topic RSV Immunization Adult Patients Completed 05/05/2023 HIB Vaccines Aged Out No longer eligi [...] [place] Care Teams Purification Director Relationship Specialty Start Date End Date Maritza Rivera PA [address] [place], [place] [phone] PCP - General Physician Brick Catcher 08/03/24
--- OUTSIDE RECORDS SUMMARY | 2025-03-29 14:00 | XMS_ITS | Patient Health Record ---
Author Organization [facility] Address [address] [place] [address] Care Team Providers Care Cold Molding Press Operator Name Role Phone LARISSA LOAIZA Primary Care Provider Keesha Amadou Ugarte Unavailable [phone] Allergies No Known Allergies Reason For Referral [...] Problem Status W/U Status Risk Notes Problem 675489860 Encounter for screening for malignant neoplasm of colon (Z12.11) Active confirmed Problem 510879091 History of adenomatous polyp of colon (Z86.010) Active confirmed Problem Screening for malignant neoplasm of rectum (591302261) Encounter for screening for malignant neoplasm of rectum (Z12.12) Active confirmed Problem 84515256 Preprocedural examination (Z01.818) Active confirmed Problem History of polyp of colon (942184300) History of colon polyps (Z86.010) Active confirmed Problem 975843736 Long-term use of aspirin therapy (Z79.82) Active confirmed Problem Diverticulosis of colon (276011819) Diverticulosis of colon (K57.30) Active confirmed Plan Of Treatment Future Test Test Name Order Date COLONOSCOPY 06/04/2016 COLONOSCOPY 12/17/2021 Insurance Providers Payer Name Payer Address Payer Phone Subscriber Number Group Number Insured Name Patient Relationship to Insured Coverage Start Date Coverage End Date [facility] [address] [place], [place] [id number] ALLIE ECHOLS Self - patient is [...] colon Pancreatic cancer 2019 with Whipple at [facility]--no chemo nor XRT--had temporary biliary stent placed by ERCP post-op Surgical History Surgery Date(Month/Year) Appy- age 3 Pilonidal cyst Hemmorrhoids Whipple 2019 Abdominal surgery for fistula from the [facility]
== END 2025-03-29 13:36 | disposition home or self-care (01) ==
LOC: HO.HMCFM 13:08
PROVIDERS: PCP Physician Assistant Medical; Visit Provider Physician Assistant Medical
DX: R55 Syncope and collapse (principal)

== ENCOUNTER → 2025-04-10 08:12 | Outpatient (REF) | payer MEDICARE, SELFPAY ==
--- OUTSIDE RECORDS SUMMARY | 2025-04-10 08:17 | XMS_ITS | Patient Health Record ---
Author Organization [facility] Address [address] [place] [address] Care Team Providers Care Termite Control Representative Name Role Phone LAIRSSA LOAIZA Primary Care Provider Keesha Amadou Ugarte Unavailable [phone] Allergies No Known Allergies Reason For Referral [...] Problem Status W/U Status Risk Notes Problem 327880913 Encounter for screening for malignant neoplasm of colon (Z12.11) Active confirmed Problem 640452864 History of adenomatous polyp of colon (Z86.010) Active confirmed Problem Screening for malignant neoplasm of rectum (157397265) Encounter for screening for malignant neoplasm of rectum (Z12.12) Active confirmed Problem 60774207 Preprocedural examination (Z01.818) Active confirmed Problem History of polyp of colon (924810259) History of colon polyps (Z86.010) Active confirmed Problem 853579783 Long-term use of aspirin therapy (Z79.82) Active confirmed Problem Diverticulosis of colon (764239971) Diverticulosis of colon (K57.30) Active confirmed Plan Of Treatment Future Test Test Name Order Date COLONOSCOPY 06/04/2016 COLONOSCOPY 12/17/2021 Insurance Providers Payer Name Payer Address Payer Phone Subscriber Number Group Number Insured Name Patient Relationship to Insured Coverage Start Date Coverage End Date [facility] [address] [place], [place] [id number] [phone] [id number] ALLIE ECHOLS Self - patient is [...] on Coumadin IDDM since the Whipple Denies [place],CVA,Lung disease,renal disease HTN Sleep apnea-uses CPAP Colonoscopy 08/2016 with 2 sm all tubular adenomas removed, small AVM in ascending colon Pancreatic cancer 2019 with Whipple at [facility]--no chemo nor XRT--had temporary biliary stent placed by ERCP post-op Surgical History Surgery Date(Month/Year) Appy- age 3 Pilonidal cyst Hemmorrhoids Whipple 2019 Abdominal surgery for fistula from the [facility]
--- OUTSIDE RECORDS SUMMARY | 2025-04-10 08:17 | XMS_ITS | Clinical Summary ---
Author Organization [facility] Address [address] [place] [address] Phone Care Team Providers Care Community Outreach Advocate Name Role Phone Maritza Rivera Primary Care Provider [phone] Allergies Active Allergy Reactions Criticality Noted Date [...] Problem Noted Date Diagnosed Date Prostate cancer ([facility] V24, [facility] V28) 06/27 Cancer Staging:Clinical:Stage IIIB(cT3a, cN0, cM0, PSA: 2, Grade Group: 1) - Signed by Edward Webber MD on 07/18/2024 Neuroendocrine carcinoma of pancreas ([facility] V24, [facility] V28) Encounters Date Type Department Care Team Description 02/05/2025 2:15 PM EDT Office Visit Orthopedic Surgery - [address] [address] Johnny Renteria, DPM Metatarsalgia of right foot (Primary Dx); Dermatophytosis of nail; Diabetic mononeuropathy simplex ([facility] V24, [facility] V28); Verruca plantaris from Last 3 Months Surgical History Surgery Date Site/Laterality Comments WHIPPLE PROCEDURE W/ LAPAROSCOPY CYSTOSCOPY INSERTION / REMOVAL STENT / STONE Medical History Medical History Date Comments Microscopic hematuria Kidney stones BPH (benign prostatic hyperplasia) Hypercholesterolemia Neuroendocrine carcinoma of pancreas ([facility] V2 4, [facility] V28) Family History Medical History Relation Name [...] [place] Care Teams Community Outreach Advocate Relationship Specialty Start Date End Date Maritza Rivera PA [address] [place], [place] [phone] PCP - General Physician Technical Documentation Specialist 08/03/24
--- NOTE | 2025-04-10 08:32 | CA_ITS ---
Transthoracic Echocardiogram Patient (Last, First, Middle): Varinder Evans M Gender: M Date of : 1955 Age: 70 Procedure Date: 04/10/2025 Procedure Type: Transthoracic Echocardiogram Location: OP Height: 165.1 cm Weight: 81.65 kg BSA: 1.89 m2 Heart Rate: bpm BP: 160 / 80 mmHg Artist'S Manager: TO Referring MD: Maritza VILLALTA Symptoms: R55 - Syncope and collapse Study Quality: Fair ECG Rhythm: Sinus Conclusions: - The left ventricular systolic function is normal. The calculated ejection fraction is 57% by biplane method. - No obvious valvular pathology seen on this study. Findings Left Ventricle Normal left ventricular cavity size. There is normal left ventricular wall thickness. The left ventricular systolic function is normal. The calculated ejection fraction is 57% by biplane method. There is no evidence of regional wall motion abnormalities. Diastolic function is normal for age. Right Ventricle Normal right ventricular cavity size and systolic function. Atria The left atrium is mildly dilated. The right atrium is normal in size. Aortic Valve There is a normal trileaflet aortic valve. There is no aortic valve stenosis. There is no aortic valve regurgitation. Mitral Valve The mitral valve appears normal. There is trace mitral valve regurgitation. There is no mitral valve stenosis. Pulmonic Valve The pulmonic valve is likely normal. Tricuspid Valve There is no tricuspid valve regurgitation. Tricuspid regurgitation envelope is inadequate for calculation of right ventricular systolic pressure. Great Vessels The asc aorta is normal in size. Small plaque is seen in the sino tubular ridge. Venous The inferior vena cava is normal in size and collapses greater than 50% with inspiration. Pericardium/Pleural There is no evidence of pericardial effusion. Prior Study Comparison No prior study available for comparison. Recommendations, Care & Conclusions No obvious valvular pathology seen on this study. Measurements 2D Linear Measurements IVSd: 0.94 0.6-0.9/0.6-1.0 cm LVIDd: 5.01 3.9-5.3/4.2-5.9 cm LVIDd Index: 2.65 2.4-3.2/2.2-3.1 cm/m2 LVIDs: 3.02 2.0-3.6 cm LVPWd: 0.84 0.7-1.1 cm LV Mass: 195.36 67-162/88-224 g LV Mass Index: 103.37 43-95/49-115 g/m2 LVOT Diam: 2.20 3.0+(-)1.3 cm 2D Systolic Function EF 4C: 57.00 >55% EF 2C: 55.80 >55% EF BiP: 56.50 >55% Mitral Valve MV Pk E: 0.90 MV PK A: 0.86 MV Decel Time: 268.00 E/A: 1.00 E'Lateral: 7.07 E'Medial: 5.33 E/E' Med: 16.80 E/E' Lat: 12.70 PHT: 78.00 MVA PHT: 2.82 Decel [place]: 3.35 Aortic Valve AoV Pk Rashad: 1.55 AoV Mn Rashad: 1.06 AoV VTI: 0.37 AoV Pk Grad: 10.00 Aov Mn Grad: 5.00 AASHISH Cont.VTI: 2.51 LVOT LVOT Pk Rashad: 1.08 LVOT Mn Rashad: 0.62 LVOT VTI: 0.24 LVOT Pk Grad: 5.00 LVOT Mn Grad: 2.00 LVOT Diam: 2.20 LVOT Area: 3.80 Diastolic Function MV Pk E: 0.90 MV Pk A: 0.86 E/A: 1.00 E'Medial: 5.33 E/E' Med: 16.80 E' Laterial: 7.07 E/E' Lat: 12.70 Right Ventricle TAPSE (mm): 21.70 TVS' Rashad: 10.10 Tricuspid Valve RA Press: 3.00 Great Vessels Aorta Sinus of Valsalva: 3.37 2.0-3.[address] [place]: 2.71 1.7-3.4 cm Ao Asc: 3.40 2.1-3.4 cm Pulmonary Veins Pulm Vein S/D 1.10 Updated in Other Vendor System with Status of Final Fer Bell MD electronically signed on 04/10/2025 2:41:32 PM with status of Final
--- NOTE | 2025-04-10 08:32 | HM_ITS ---
* Total monitoring time 2 days. * Underlying rhythm is sinus with an average rate of 60/Min. * Rare supraventricular ectopy. * Rare ventricular ectopy. * Pauses noted during daytime and night hours. Longest 3.1 seconds. 2:1 AV block noted during daytime and nighttime hours. * No patient markers or diary events. * Implantable loop recorder has been placed for further evaluation. MTDD
== END ==
LOC: HO.CARD 08:12
PROVIDERS: PCP Physician Assistant Medical; Visit Provider Physician Assistant Medical
DX: R55 Syncope and collapse (principal)
CPT/HCPCS: 93225; 93306

== ENCOUNTER → 2025-04-10 08:32 | Outpatient (BNV) | payer MEDICARE, SELFPAY | PROVIDERS: PCP Physician Assistant Medical; Visit Provider Internal Medicine | DX: I51.7 Cardiomegaly (principal); R55 Syncope and collapse | CPT/HCPCS: 93306 ==

== ENCOUNTER 2025-04-17 08:19 | Outpatient (AMB) | payer MEDICARE, SELFPAY ==
--- NOTE | 2025-04-17 08:51 | MHC.OFFVIS ---
Vital Signs 04/17/25 08:52 Height 5 ft 4.7 in Weight 184 lb 4.903 oz BMI 31.0 BP 140/72 H Blood Pressure Location Lt brachial Position Sitting Pulse 59 Pulse Source Monitor Intake Visit Reasons: EXECUTIVE DIRECTOR GLOBAL BRAND MARKETING/ Mary Carmen Mccarthyoie/syncope and collapse Spring Production Supervisor Required: No Accompanied by: Spouse Allergies No Known Allergies (No Known Allergies*) Allergy (Verified 01/25/25 13:02) Medication List - Last Reconciled 04/17/25 by Fer Bell MD aspirin 81 mg PO DAILY atorvastatin 40 mg PO DAILY blood-glucose sensor (Dexcom G7 Sensor device) continuous glucose every 10 days cholecalciferol (vitamin D3) 200 mcg (4 x 50 mcg (2,000 unit)) PO DAILY 90 days ferrous sulfate (FeroSul) 325 mg PO BID glucose (Dex4 Glucose Quick Dissolve) 16 grams (4 x 4 gram) PO Q15M PRN Ketone Urine Test (acetone (urine) test) once daily NS qqpsmi-xyxvnsgt-edriswc 6,000-19,000 -30,000 unit (Creon) TAKE 1 CAPSULE BY MOUTH THREE TIMES DAILY WITH EACH MEAL directed magnesium 250 mg PO DAILY Novolog U-100 Insulin aspart (insulin aspart U-100) 120 units (1.2 mL) subcut DAILY 30 days NS omeprazole 40 mg PO DAILY OneTouch Delica Plus Lancet (lancets) once daily NS OneTouch Verio Flex meter (blood-glucose meter) once daily NS sertraline 50 mg PO DAILY tamsulosin 0.4 mg PO DAILY HPI Comments Details: The patient is a 70-year-old male presenting with recurrent syncope. The episodes began in August and have occurred twice, with the second episode in February. The patient describes the episodes as sudden, without any warning signs such as dizziness or heart palpitations. The first episode occurred when the patient was getting up from bed, and the second while outside in the yard. There have been no further episodes since February. The patient has a history of diabetes mellitus, which has been difficult to control post-Whipple procedure for pancreatic cancer. The patient uses an insulin pump and experiences nocturnal hypoglycemia requiring glucose tablets. The Whipple procedure was performed in 2018 due to pancreatic cancer. The patient reports no family history of cardiac issues, although the father had chronic obstructive pulmonary disease. [facility] Medical History (Updated 04/06/25 @ 16:05 by PAWAN Earl) Elevated parathyroid hormone Syncope Microhematuria Vitamin D deficiency Low serum calcium Callus of foot Hepatic steatosis Elevated LFTs Microalbuminuria Diabetes mellitus type 2, insulin dependent Prostate cancer Depression GERD (gastroesophageal reflux disease) Hypercholesterolemia Pancreatic cancer Sleep apnea HTN (hypertension) DVT (deep venous thrombosis) Elevated cholesterol Diabetes Surgical History History of partial pancreatectomy H/O colonoscopy History of laparotomy Hx of hemorrhoidectomy Hx of appendectomy History of Whipple procedure Family History (Updated 04/17/25 @ 09:13 by Fer Bell MD) Father COPD (chronic obstructive pulmonary disease) Mother No problems noted. Social History (Updated 04/17/25 @ 08:55 by Morena Truong [facility]) Household Members: Spouse Housing: House Alcohol intake: never Patient Tobacco Use Status: Former Tobacco user Tobacco use type: Cigarette Cigarette Packs Per Day: 3 Years Smoked: 15 quit in 1989 e-Cigarette/Vaping Use: Never Used Second Hand Smoke Exposure: No service: No Current occupational status: retired Current occupational exposures/hazards: No Cognitive needs: No Hearing needs: Yes (hearing aid) Vision needs: Yes (glasses) Review of Systems Const Denies chills, Denies fatigue, Denies fever(s), Denies frequent falls, Denies weakness, Denies weight gain and Denies weight loss ENT Denies dizziness Card Denies chest pain, Denies leg edema, Denies lightheadedness, Denies palpitations, Denies dyspnea, Denies dyspnea on exertion and Denies orthopnea Resp Denies cough, Denies dyspnea and Denies dyspnea on exertion GI Denies bloating and Denies change in bowel habits Musc Denies muscle weakness, Denies numbness and Denies tingling Neuro Denies dizziness, Denies frequent falls, Denies numbness, Denies tingling and Denies weakness Endo Denies fatigue and Denies palpitations Physical Exam Vital Signs: Last Vital Signs Pulse 59 04/17/25 08:52 BP 140/72 H 04/17/25 08:52 BMI result Body Mass Index 31.0 Const General: comfortable and no acute distress Orientation/consciousness: patient oriented x3 HEENT Other: Unremarkable Head: Yes normal to inspection Neck Neck: Yes normal visual inspection Chest Chest palpation & inspection: normal inspection of the chest Resp Auscultation: clear to auscultation bilaterally Cardio Palpation: normal PMI Heart sounds: S1 normal heart sound present, S2 normal heart sound present, no gallops, no murmurs and no rubs GI Palpation (GI): Soft to palpation Back/Spine/Pelvis Other: unremarkable Skin General skin exam: no rashes or lesions noted Neuro General: patient oriented x3 Extrem General: Yes normal to inspection Psych Mental Status: mental status grossly normal Office Procedures EKG Details: EKG with underlying sinus rhythm at 59/Min; right bundle-branch block pattern; [place]. [address]-[id number], Complete Assessment & Plan Assessment & Plan (1) Syncope: Code(s): R55 - Syncope and collapse Category: Medical Qualifiers: Syncope type: unspecified Qualified Code(s): R55 - Syncope and collapse Plan: The patient has experienced two episodes of syncope, with no warning signs or cardiac symptoms. Echocardiogram with LVEF of 57%. No wall motion abnormalities. No significant valvular findings. Patient reports show completed a 2 day Holter but unlikely to be of significance as episodes are infrequent. The plan includes considering the implantation of a subcutaneous loop recorder to monitor for arrhythmias over a longer period. (2) Diabetes: Comment: insulin dependent Code(s): E11.9 - Type 2 diabetes mellitus without complications Category: Medical Qualifiers: Diabetes mellitus type: type 2 Diabetes mellitus plate setter insulin use: without plate setter use Diabetes mellitus complication status: without complication Qualified Code(s): E11.9 - Type 2 diabetes mellitus without complications Plan: The patient has diabetes mellitus, which has been challenging to manage post-Whipple procedure. The patient experiences nocturnal hypoglycemia and uses an insulin pump. Follow-up with an advanced practice rn is ongoing to optimize diabetes management. Plan Discussion Notes I discussed with the patient the challenges in capturing syncope episodes due to their infrequency and the limitations of short-term monitoring. I proposed the option of implanting a subcutaneous loop recorder for long-term monitoring, explaining the minor surgical procedure involved and its potential benefits in diagnosing arrhythmias. We also reviewed the patient's diabetes management, emphasizing the importance of endocrinology follow-up to address nocturnal hypoglycemia. Patient was informed and verbally consented to the use of an ambient scribe for clinic note documentation during this visit. Patient Instructions: - Consider the option of a subcutaneous loop recorder for long-term monitoring of syncope episodes. - Continue follow-up with your advanced practice rn to manage diabetes and address nocturnal hypoglycemia. Coding Level of Care Code New Pt Level 4 (02969) Complex EM visit Add On G2211 Diagnoses Syncope, unspecified syncope type R55 Syncope type: unspecified Type 2 diabetes mellitus without complication, without long-term current use of insulin E11.9 Diabetes mellitus type: type 2 Diabetes mellitus plate setter insulin use: without jail use Diabetes mellitus complication status: without complication CPT Codes EKG - CPT: 81221-[id number], Complete ([id number])
[2025-04-17 08:52] VITALS: BP 140/72; PULSE 59; BMI 31.0
--- OUTSIDE RECORDS SUMMARY | 2025-04-17 08:55 | XMS_ITS | Patient Health Record ---
Author Organization [facility] Address [address] [place] [address] Care Team Providers Care Cotton Weigher Operator Name Role Phone LARISSA LOAIZA Primary Care Provider Keesha Amadou Ugarte Unavailable [phone] Allergies No Known Allergies Reason For Referral [...] Problem Status W/U Status Risk Notes Problem [id number] Encounter for screening for malignant neoplasm of colon (Z12.11) Active confirmed Problem 614444021 History of adenomatous polyp of colon (Z86.010) Active confirmed Problem Screening for malignant neoplasm of rectum (395636883) Encounter for screening for malignant neoplasm of rectum (Z12.12) Active confirmed Problem 76248194 Preprocedural examination (Z01.818) Active confirmed Problem History of polyp of colon (498137715) History of colon polyps (Z86.010) Active confirmed Problem 287901761 Long-term use of aspirin therapy (Z79.82) Active confirmed Problem Diverticulosis of colon (533759438) Diverticulosis of colon (K57.30) Active confirmed Plan Of Treatment Future Test Test Name Order Date COLONOSCOPY 06/04/2016 COLONOSCOPY 12/17/2021 Insurance Providers Payer Name Payer Address Payer Phone Subscriber Number Group Number Insured Name Patient Relationship to Insured Coverage Start Date Coverage End Date [facility] [address] [place], [place] [id number] ALLIE ECHOLS Self - patient is [...] on Coumadin IDDM since the Whipple Denies [place],CVA,Lung disease,renal disease HTN Sleep apnea-uses CPAP Colonoscopy 08/2016 with 2 sm all tubular adenomas removed, small AVM in ascending colon Pancreatic cancer 2019 with Whipple at [facility]--no chemo nor XRT--had temporary biliary stent placed by ERCP post-op Surgical History Surgery Date(Month/Year) Appy- age 3 Pilonidal cyst Hemmorrhoids Whipple 2019 Abdominal surgery for fistula from the Ceci quintana
--- OUTSIDE RECORDS SUMMARY | 2025-04-17 08:55 | XMS_ITS | Clinical Summary ---
Author Organization [facility] Address [address] [place] [address] Phone Care Team Providers Care River Transportation Worker Name Role Phone Maritza Rivera Primary Care Provider [phone] Allergies Active Allergy Reactions Criticality Noted Date [...] Problem Noted Date Diagnosed Date Prostate cancer ([facility] V24, [facility] V28) 06/27 Cancer Staging:Clinical:Stage IIIB(cT3a, cN0, cM0, PSA: 2, Grade Group: 1) - Signed by Edward Webber MD on 07/18/2024 Neuroendocrine carcinoma of pancreas ([facility] V24, [facility] V28) Encounters Date Type Department Care Team Description 02/05/2025 2:15 PM EDT Office Visit Orthopedic Surgery - [address] [address] Johnny Renteria, DPM Metatarsalgia of right foot (Primary Dx); Dermatophytosis of nail; Diabetic mononeuropathy simplex ([facility] V24, [facility] V28); Verruca plantaris from Last 3 Months Surgical History Surgery Date Site/Laterality Comments WHIPPLE PROCEDURE W/ LAPAROSCOPY CYSTOSCOPY INSERTION / REMOVAL STENT / STONE Medical History Medical History Date Comments Microscopic hematuria Kidney stones BPH (benign prostatic hyperplasia) Hypercholesterolemia Neuroendocrine carcinoma of pancreas ([facility] V2 4, [facility] V28) Family History Medical History Relation Name [...] [place]OSS - [place] Care Teams River Transportation Worker Relationship Specialty Start Date End Date Maritza Rivera PA [address] [place], [place] [phone] PCP - General Physician Technical Systems Architect 08/03/24
== END 2025-04-17 10:00 | disposition home or self-care (01) ==
LOC: HO.HCS 08:20
PROVIDERS: PCP Physician Assistant Medical; Visit Provider Internal Medicine
DX: R55 Syncope and collapse (principal); E11.8 Type 2 diabetes mellitus with unspecified complications; R94.31 Abnormal electrocardiogram [ECG] [EKG]
CPT/HCPCS: 93010; 99214; G2211

== ENCOUNTER → 2025-04-17 08:19 | Outpatient (BNVA) | payer MEDICARE, SELFPAY | PROVIDERS: PCP Physician Assistant Medical; Visit Provider Internal Medicine | DX: R55 Syncope and collapse (principal); E11.9 Type 2 diabetes mellitus without complications | CPT/HCPCS: 93005; 99212 ==

== ENCOUNTER 2025-04-18 10:38 | Outpatient (REF) | payer MEDICARE, SELFPAY ==
--- NOTE | 2025-04-18 10:56 | MHC.SHP ---
Pre-Procedural Eval Section A - 24 Hr Update-Section A only Date of Service: 04/18/25 The patient is an INPATIENT: No Changes since office visit: Yes Patient answered all questions; No Cold of Flu in the past 2 weeks, No New Medical Problems and No Changes in Medication The patient has been examined within 24 hours of the surgical procedure. The History & Physical has been completed within 30 days and I have reviewed it.: Yes Section B - Complete if H&P > 30 days Chief Complaint: Syncope and collapse Allergies: Allergies Allergy/AdvReac Type Severity Reaction Status Date / Time No Known Allergies (No Known Allergy Verified 01/25/25 13:02 Allergies*) Plan I have reviewed the history and physical and performed a pertinent physical examination on my patient. No changes have occurred unless specified. Time Spent With Patient Time: Total time managing care of this patient today ____ minutes.
--- OUTSIDE RECORDS SUMMARY | 2025-04-18 12:23 | XMS_ITS | Clinical Summary ---
Author Organization [facility] Address [address] [place] [address] Phone Care Team Providers Care Java Core Developer Name Role Phone Maritza Rivera Primary Care Provider [phone] Allergies Active Allergy Reactions Criticality Noted Date [...] Problem Noted Date Diagnosed Date Prostate cancer ([facility] V24, [facility] V28) 06/27 Cancer Staging:Clinical:Stage IIIB(cT3a, cN0, cM0, PSA: 2, Grade Group: 1) - Signed by Edward Webber MD on 07/18/2024 Neuroendocrine carcinoma of pancreas ([facility] V24, [facility] V28) Encounters Date Type Department Care Team Description 02/05/2025 2:15 PM EDT Office Visit Orthopedic Surgery - [address] [address] Johnny Renteria, DPM Metatarsalgia of right foot (Primary Dx); Dermatophytosis of nail; Diabetic mononeuropathy simplex ([facility] V24, [facility] V28); Verruca plantaris from Last 3 Months Surgical History Surgery Date Site/Laterality Comments WHIPPLE PROCEDURE W/ LAPAROSCOPY CYSTOSCOPY INSERTION / REMOVAL STENT / STONE Medical History Medical History Date Comments Microscopic hematuria Kidney stones BPH (benign prostatic hyperplasia) Hypercholesterolemia Neuroendocrine carcinoma of pancreas ([facility] V2 4, [facility] V28) Family History Medical History Relation Name [...] [place] Care Teams Java Core Developer Relationship Specialty Start Date End Date Maritza Rivera PA [address] [place], [place] [phone] PCP - General Physician Dress Designer 08/03/24
[2025-04-18 12:26] VITALS: BP 186/94; PULSE 63; RESP 18; TEMP 36.6; O2SAT 97; BMI 32.6
--- NOTE | 2025-04-18 14:09 | P.BOP_ITS ---
Brief Operative Note Date of Service: 04/18/25 Pre-op diagnosis: Syncope Post-op diagnosis: same Procedure: Placement of implantable loop recorder Implants: After obtaining full informed consent patient was in the minor surgery room on operating table in supine position. Patient is precordial area was then prepped and draped in a sterile fashion. Patient was then given 2% lidocaine with epinephrine intradermally and subcutaneously in the 4th intercostal space. A small incision was then made using the device. A StockCastr implantable loop recorder with serial number [id number] was then implanted in the subcutaneous space using modified Seldinger technique. Measured R-waves up to 0.45 mV. The incision was then closed with Steri-Strips and pressure dressing was then applied. Surgeon: Riccardo Collazo MD Anesthesia: local Was an Research Instructor used for this Procedure?: No Estimated blood loss (mL): 1 Pathology: none sent Condition: stable Disposition: same day
== END 2025-04-18 10:39 | disposition home or self-care (01) ==
LOC: HO.MS 10:38
PROVIDERS: PCP Physician Assistant Medical; Visit Provider Internal Medicine Cardiovascular Disease
PROC: (CPT 33285; principal; 2025-04-18 12:30)
DX: R55 Syncope and collapse (principal)
CPT/HCPCS: 33285; C1764; J2004

== ENCOUNTER → 2025-04-18 10:38 | Outpatient (BNV) | payer MEDICARE, SELFPAY | PROVIDERS: PCP Physician Assistant Medical; Visit Provider Internal Medicine Cardiovascular Disease | DX: Z45.09 Encounter for adjustment and management of other cardiac device (principal); R55 Syncope and collapse | CPT/HCPCS: 33285 ==

== ENCOUNTER 2025-05-01 13:05 | Outpatient (AMB) | payer MEDICARE, SELFPAY ==
[2025-05-01 13:22] VITALS: BP 130/62; PULSE 63; BMI 32.3
--- NOTE | 2025-05-01 13:22 | A.OFFVIS_ITS ---
Vital Signs 05/01/25 13:22 Height 5 ft 3 in Weight 182 lb 1.629 oz BMI 32.3 BP 130/62 Blood Pressure Location Lt brachial Position Sitting Pulse 63 Pulse Source Pulse Oximeter Intake Visit Reasons: wound ck dr srivastava pt Driver Sales Required: No Business Insight And Analytics Manager: Business Insight And Analytics Manager Present Allergies No Known Allergies (No Known Allergies*) Allergy (Verified 05/01/25 13:24) Medication List - Last Reconciled 05/01/25 by SHAHRZAD Babb aspirin 81 mg PO DAILY atorvastatin 40 mg PO DAILY blood-glucose sensor (Dexcom G7 Sensor device) continuous glucose every 10 days cholecalciferol (vitamin D3) 200 mcg (4 x 50 mcg (2,000 unit)) PO DAILY 90 days ferrous sulfate (FeroSul) 325 mg PO BID glucose (Dex4 Glucose Quick Dissolve) 16 grams (4 x 4 gram) PO Q15M PRN Ketone Urine Test (acetone (urine) test) once daily NS rukaxt-qduqdcuv-znfxpes 6,000-19,000 -30,000 unit (Creon) TAKE 1 CAPSULE BY MOUTH THREE TIMES DAILY WITH EACH MEAL directed magnesium 250 mg PO DAILY Novolog U-100 Insulin aspart (insulin aspart U-100) 120 units (1.2 mL) subcut DAILY 30 days NS omeprazole 40 mg PO DAILY OneTouch Delica Plus Lancet (lancets) once daily NS OneTouch Verio Flex meter (blood-glucose meter) once daily NS sertraline 50 mg PO DAILY tamsulosin 0.4 mg PO DAILY HPI HPI wound ck dr srivastava pt: Details: Dave is a 70-year-old male with past medical history of hypertension, hyperlipidemia, diabetes, recent syncopal events with ILR placement showing second-degree heart block type 2 and complete heart block. He underwent a Medtronic dual-chamber pacemaker and now presents for follow-up. Today he reports he has been doing well since his pacemaker placement. He has not had any lightheadedness, presyncope, syncope, falls. He has been limiting his activity especially with left arm as directed. He has minor discomfort at the pacemaker site. He has been showering and bloating the area dry. Skin glue remains intact over the pacemaker site. ILR was removed at the time of pacemaker placement. That site is not causing him any discomfort. He has no other types of chest discomfort at rest or with activity. He has no shortness of breath, PND, orthopnea or edema. Compliant with meds. Has remote monitoring on his phone. is present. [facility] Medical History Elevated parathyroid hormone Syncope Microhematuria Vitamin D deficiency Low serum calcium Callus of foot Hepatic steatosis Elevated LFTs Microalbuminuria Diabetes mellitus type 2, insulin dependent Prostate cancer Depression GERD (gastroesophageal reflux disease) Hypercholesterolemia Pancreatic cancer Sleep apnea HTN (hypertension) DVT (deep venous thrombosis) Elevated cholesterol Diabetes Surgical History History of partial pancreatectomy H/O colonoscopy History of laparotomy Hx of hemorrhoidectomy Hx of appendectomy History of Whipple procedure Family History Father COPD (chronic obstructive pulmonary disease) Mother No problems noted. Social History Household Members: Spouse Housing: House Alcohol intake: never Patient Tobacco Use Status: Former Tobacco user Tobacco use type: Cigarette Cigarette Packs Per Day: 3 Years Smoked: 15 quit in 1989 e-Cigarette/Vaping Use: Never Used Second Hand Smoke Exposure: No service: No Current occupational status: retired Current occupational exposures/hazards: No Cognitive needs: No Hearing needs: Yes (hearing aid) Vision needs: Yes (glasses) Review of Systems Const All systems reviewed & are unremarkable except as noted in HPI and below ENT Denies dizziness Card Denies chest pain, Denies chest pain at rest, Denies chest pain with activity, Denies rapid heart rate, Denies pedal edema, Denies edema, Denies leg edema, Denies lightheadedness, Denies palpitations, Denies dyspnea, Denies dyspnea on exertion and Denies orthopnea Resp Denies cough, Denies dyspnea and Denies dyspnea on exertion GI Denies hematochezia and Denies change in stool character Musc Denies abnormal gait, Denies limited range of motion, Denies muscle cramps, Denies muscle weakness, Denies numbness, Denies radiating pain into limb, Denies stiffness and Denies tingling Neuro Denies abnormal gait, Denies dizziness, Denies numbness and Denies tingling Endo Denies palpitations Physical Exam Vital Signs: Last Vital Signs Pulse 63 05/01/25 13:22 BP 130/62 05/01/25 13:22 BMI result Body Mass Index 32.3 Const General: cooperative, healthy appearing, comfortable and no acute distress Orientation/consciousness: patient oriented x3 Neck Neck: Yes normal visual inspection and Yes no JVD Chest Other: Pacemaker site, Left upper chest fully intact with skin glue over site, no redness, drainage or swelling noted. ILR removal site to left of lower sternum intact with skin glue - no signs of infection Resp Effort & Inspection: normal respiratory effort Auscultation: clear to auscultation bilaterally, no rales, no rhonchi and no wheezes Cardio Rate: regular rate Rhythm: regular rhythm Heart sounds: S1 normal heart sound present, S2 normal heart sound present, no gallops, no murmurs and no rubs Neuro General: patient oriented x3 Extrem General: Yes normal to inspection, No no pedal edema and No calf tenderness Psych Appearance: grossly normal Mental Status: mental status grossly normal Speech and movement: Normal speech and movement present Assessment & Plan Assessment & Plan (1) Visit for wound check: Code(s): Z51.89 - Encounter for other specified aftercare Category: Medical Plan: Left upper chest pacemaker incision fully intact with no signs or concerns for infection. ILR removal site fully intact. Skin glue remains in place over both incisions. Site care reviewed with him. (2) Pacemaker: Comment: Medtronic dual chamber 04/20/25 for [facility] Code(s): Z95.0 - Presence of cardiac pacemaker Category: Medical Plan: Medtronic dual-chamber pacemaker placement 04/20/2025. [facility] Cardiology with device check in 6 months. (3) Complete heart block: Code(s): I44.2 - Atrioventricular block, complete Category: Medical Plan: Recent syncopal events suspicious for arrhythmia. He did have Holter monitor 03/21/2025 showing sinus rhythm with average heart rate 60, pauses seen during daytime and nighttime, longest 3.1 seconds, two-to-one AV block. Since his pauses were not significant he underwent ILR placement which quickly showed evidence of complete heart block with up to 8 second ventricular standstill. Following that finding he was sent to [facility] for pacemaker placement. ILR was removed at the time of pacemaker procedure. Pulse is regular on examination today. No recurrent syncope episodes. (4) Syncope: Code(s): R55 - Syncope and collapse Category: Medical Qualifiers: Syncope type: unspecified Qualified Code(s): R55 - Syncope and collapse Plan: As above. (5) Hospital discharge follow-up: Code(s): Z09 - Encounter for follow-up examination after completed treatment for conditions other than malignant neoplasm Category: Medical Plan: Discharge summary and notes reviewed Plan I discussed with the patient the successful implantation of the pacemaker, which now regulates his heart rate and prevents syncope. We reviewed the importance of avoiding strenuous activities and specific arm movements to ensure proper healin g of the pacemaker leads. The patient was informed about the need for regular follow-up appointments to monitor the pacemaker. Patient Instructions: - Avoid strenuous activities and arm movements above the shoulder for the next few weeks. - Notify this office of any recurrent syncope, any new chest discomfort or shortness of breath. - Attend follow-up appointments for pacemaker checks and reevaluation. Patient was informed and verbally consented to the use of an ambient scribe for clinic note documentation during this visit. Visit time spent on chart review, interview, assessment, orders, documentation. Coding Level of Care Code Est Pt Level 4 (07319) Complex EM visit Add On G2211 Diagnoses Visit for wound check Z51.89 Pacemaker Z95.0 Complete heart block I44.2 Syncope, unspecified syncope type R55 Syncope type: unspecified Hospital discharge follow-up Z09 Time Spent (min) 32
--- OUTSIDE RECORDS SUMMARY | 2025-05-01 17:03 | XMS_ITS | Clinical Summary ---
Author Organization [facility] Address [address] [place] [address] Phone Care Team Providers Care Customer Service Operator Name Role Phone Maritza Rivera Primary Care Provider [phone] Allergies Active Allergy Reactions Criticality Noted Date [...] Problem Noted Date Diagnosed Date Prostate cancer ([facility] V24, [facility] V28) 06/27 Cancer Staging:Clinical:Stage IIIB(cT3a, cN0, cM0, PSA: 2, Grade Group: 1) - Signed by Edward Webber MD on 07/18/2024 Neuroendocrine carcinoma of pancreas ([facility] V24, [facility] V28) Encounters Date Type Department Care Team Description 02/05/2025 2:15 PM EDT Office Visit Orthopedic Surgery - [address] [address] Johnny Renteria, DPM Metatarsalgia of right foot (Primary Dx); Dermatophytosis of nail; Diabetic mononeuropathy simplex ([facility] V24, [facility] V28); Verruca plantaris from Last 3 Months Surgical History Surgery Date Site/Laterality Comments WHIPPLE PROCEDURE W/ LAPAROSCOPY CYSTOSCOPY INSERTION / REMOVAL STENT / STONE Medical History Medical History Date Comments Microscopic hematuria Kidney stones BPH (benign prostatic hyperplasia) Hypercholesterolemia Neuroendocrine carcinoma of pancreas ([facility] V2 4, [facility] V28) Family [...] Vaccine (8 - Mixed Product risk season) 2025 04/25/2024, 05/05/2023, 04/27/2022, Additional history exists Influenza [...] [place] Care Teams Customer Service Operator Relationship Specialty Start Date End Date Maritza Rivera PA [address], [place] [id number] PCP - General Physician Zipper Slide Attacher 08/03/24
--- OUTSIDE RECORDS SUMMARY | 2025-05-01 17:03 | XMS_ITS | Patient Health Record ---
Author Organization [facility] Address [address] [place] [address] Care Team Providers Care Sas Etl Developer Name Role Phone LARISSA LOAIZA Primary Care Provider Keesha Amadou Ugarte Unavailable [phone] Allergies No Known Allergies Reason For Referral [...] Problem Status W/U Status Risk Notes Problem 346654842 Encounter for screening for malignant neoplasm of colon (Z12.11) Active confirmed Problem 007517208 History of adenomatous polyp of colon (Z86.010) Active confirmed Problem Screening for malignant neoplasm of rectum (867474068) Encounter for screening for malignant neoplasm of rectum (Z12.12) Active confirmed Problem 67893376 Preprocedural examination (Z01.818) Active confirmed Problem History of polyp of colon (659274829) History of colon polyps (Z86.010) Active confirmed Problem 388025297 Long-term use of aspirin therapy (Z79.82) Active confirmed Problem Diverticulosis of colon (139487946) Diverticulosis of colon (K57.30) Active confirmed Plan Of Treatment Future Test Test Name Order Date COLONOSCOPY 06/04/2016 COLONOSCOPY 12/17/2021 Insurance Providers Payer Name Payer Address Payer Phone Subscriber Number Group Number Insured Name Patient Relationship to Insured Coverage Start Date Coverage End Date [facility] [address] [place], [place] [id number] [phone] [id number] ALLIE ECHOLS Self - patient is [...] colon Pancreatic cancer 2019 with Whipple at [facility]--no chemo nor XRT--had temporary biliary stent placed by ERCP post-op Surgical History Surgery Date(Month/Year) Appy- age 3 Pilonidal cyst Hemmorrhoids Whipple 2019 Abdominal surgery for fistula from the [facility]
== END 2025-05-01 13:57 | disposition home or self-care (01) ==
LOC: HO.HCS 13:06
PROVIDERS: PCP Physician Assistant Medical; Visit Provider Nurse Practitioner Family
DX: Z45.018 Encounter for adjustment and management of other part of cardiac pacemaker (principal); I44.2 Atrioventricular block, complete; R55 Syncope and collapse; Z09 Encounter for follow-up examination after completed treatment for conditions other than malignant neoplasm
CPT/HCPCS: 99214; G2211

== ENCOUNTER → 2025-05-01 13:05 | Outpatient (BNVA) | payer MEDICARE, SELFPAY | PROVIDERS: PCP Physician Assistant Medical; Visit Provider Nurse Practitioner Family | DX: Z09 Encounter for follow-up examination after completed treatment for conditions other than malignant neoplasm (principal); I44.2 Atrioventricular block, complete; R55 Syncope and collapse; Z95.0 Presence of cardiac pacemaker | CPT/HCPCS: 99212 ==

== ENCOUNTER 2025-05-10 09:30 | Outpatient (AMB) | payer MEDICARE, SELFPAY ==
--- NOTE | 2025-05-10 09:45 | MHC.PC.OV ---
Vital Signs 05/10/25 09:51 Height 5 ft 3 in Weight 190 lb BMI 33.7 BP 120/62 Blood Pressure Location Rt brachial Position Sitting Respiration 18 Pulse 76 Pulse Source Pulse Oximeter Temp 97.9 F Temp Source Temporal Artery Scan Pulse Oximetry (%) 96 Oxygen Delivery Method Room Air Intake Visit Reasons: Discharged from [facility] on 04/21 Implant pacemaker Intake Note: Varinder presents in the office today for a hospital discharge pacemaker implanter 04/21/2025. Allergies No Known Allergies (No Known Allergies*) Allergy (Verified 05/10/25 09:47) Tobacco use date assessed: 05/10/25 Dental Screening Dental Screen Date: 05/10/25 Did you have a dental visit in the last 12 months?: Yes Did you have a dental problem in the last 6 months where you did not have access to dental care?: No Was dental information given to patient?: Patient declined HPI HPI Comments History of Present Illness Details This is a 70-year-old male with a past medical history of type 2 diabetes, pancreatic cancer, prostate cancer, hyperlipidemia, hypertension, LOTTIE and depression presenting for hospital follow up. Patient was admitted 04/20/2025 to 04/21/2025 after presenting with a history of multiple syncopal episodes and was found to have an 8 second pause on implantable loop recorder consistent with a high-degree AV block. He underwent pacemaker placement on 04/20/2025. There were no complications. He followed up with Cardiology following the procedure. Notes improved energy since pacemaker. Denies chest pain and shortness of breath. He does want to mention I tremor in his right arm that has been there for years. He notices it when he brushes his teeth and if he is resting in bed at night. Denies fatigue, voice change, dizziness, headache, vision changes, numbness, tingling or weakness in the arms. Denies family history of Parkinson's. He feels like this tremor started after he had the Whipple procedure. ROS: Constitutional: No unexplained weight loss, fever, chills, fatigue or night sweats. Eyes: No vision changes, blurry vision, double vision, eye pain, eye redness, eye discharge. Respiratory: No shortness of breath, cough or sputum production. Cardiovascular: No chest pain, chest pressure or chest discomfort. No palpitations or pedal edema. Gastrointestinal: No anorexia, nausea, vomiting or diarrhea. No abdominal pain Neurologic: No headache, dizziness, weakness, ataxia, memory loss, numbness, tingling or seizures. Physical exam: Constitutional: Alert, in no distress. Eyes: Pupils are equal, round and reactive to light. Extraocular muscles intact. Neck: Supple, Full range of motion. No lymphadenopathy. No palpable thyroid masses. Respiratory: Clear to auscultation. Cardiovascular: S1 S2 regular. No murmurs. Neurologic:?Alert and oriented x 3, no focal deficits observed, CN 2-12 intact, ckygwe-qtth-ttenwt normal, sensation equal and symmetric, strength UE and LE 5/5 bilaterally, reflexes equal and symmetric.? Normal gait.? Patient able to heel walk, toe walk and walk heel-to-toe across the floor.? No pronator drift.? Negative Romberg. No observable tremor. Skin: The incision for the loop recorder removal and incision site for the pacemaker are healing well. There is no discharge, wound dehiscence, erythema or edema. Extremities: Warm and well perfused. No clubbing, cyanosis or edema. Psychiatric: Normal mood and affect [facility] Medical History (Updated 05/10/25 @ 13:38 by PAWAN Earl) Tremor of right hand Elevated parathyroid hormone Syncope Microhematuria Vitamin D deficiency Low serum calcium Callus of foot Hepatic steatosis Elevated LFTs Microalbuminuria Diabetes mellitus type 2, insulin dependent Prostate cancer Depression GERD (gastroesophageal reflux disease) Hypercholesterolemia Pancreatic cancer Sleep apnea HTN (hypertension) DVT (deep venous thrombosis) Elevated cholesterol Diabetes Surgical History History of partial pancreatectomy H/O colonoscopy History of laparotomy Hx of hemorrhoidectomy Hx of appendectomy History of Whipple procedure Family History Father COPD (chronic obstructive pulmonary disease) Mother No problems noted. Social History (Updated 05/10/25 @ 09:50 by Elise Rainey CMA) Household Members: Spouse Housing: House Alcohol intake: never Patient Tobacco Use Status: Former Tobacco user Tobacco use type: Cigarette Cigarette Packs Per Day: 3 Years Smoked: 15 quit in 1989 e-Cigarette/Vaping Use: Never Used Second Hand Smoke Exposure: No service: No Current occupational status: retired Current occupational exposures/hazards: No Cognitive needs: No Hearing needs: Yes (hearing aid) Vision needs: Yes (glasses) Questionnaire Thrive Questionnaire Date Thrive assessed: 10/09/24 I am a: Patient What is your living situation today?: I have a steady place to live Within the past 12 months, did the food you bought not last and you didn't have the money to get more?: Often true Within the past 12 months, did you worry whether your food would run out before you got money to buy more?: I choose not to answer this question Do you have trouble paying for medicines?: I choose not to answer this question Do you have trouble getting transportation to medical appointments?: No Do you have trouble paying your heating and electricity bill?: Yes Do you have trouble taking care of your child, family member or friend?: No Do you have trouble with day-to-day activities such as bathing, preparing meals, shopping, managing finances, etc.?: I choose not to answer this question Are you currently unemployed and looking for a job?: I choose not to answer this question Are you interested in more education?: No Please select the resources that you would like help with: Paying for medicine Currently or been in a relationship where the following occur: I choose not to answer THRIVE Score: 2 TERRI-7 AMB Questionnaire TERRI-7 Date TERRI - 7 assessed: 01/11/25 Source: Developed by Drs. Amadou Hanna, Breann Murillo, Mahamed Lynn and colleagues, with an educational shawna from [employer]. Physical exam (Primary Care) Vital Signs: Last Vital Signs Temp 97.9 F 05/10/25 09:51 Pulse 76 05/10/25 09:51 Resp 18 05/10/25 09:51 BP 120/62 05/10/25 09:51 Pulse Ox 96 05/10/25 09:51 Oxygen Delivery Method Room Air 05/10/25 09:51 BMI result Body Mass Index 33.7 Tobacco/Smoking Status: Tobacco use Status Tobacco use date assessed 05/10/25 05/10/25 09:56 Patient Tobacco Use Status Former Tobacco user 05/10/25 09:56 Tobacco use type Cigarette 05/10/25 09:56 e-Cigarette/Vaping Use Never Used 05/10/25 09:56 Thrive Assessment: Date of Thrive Assessment Date Thrive assessed 10/09/24 05/10/25 09:56 Currently or been in a relationship where the following occur: I choose not to answer Coding Level of Care Code Est Pt Level 4 (21826) Complex EM visit Add On G2211 Diagnoses Hospital discharge follow-up Z09 Tremor of right hand R25.1 Syncope, cardiogenic R55 Assessment & Plan Assessment & Plan (1) Hospital discharge follow-up: Code(s): Z09 - Encounter for follow-up examination after completed treatment for conditions other than malignant neoplasm Category: Medical (2) Tremor of right hand: Code(s): R25.1 - Tremor, unspecified Category: Medical (3) Syncope, cardiogenic: Code(s): R55 - Syncope and collapse Plan Patient seen today to follow up following hospital discharge for pacemaker implantation after being diagnosed with complete heart block. He is doing well an endorses improved energy since pacemaker. He has a follow up scheduled with his airport shuttle driver. His neurologic exam is benign. He endorses this tremor for years but is concerned it could progress. He notices it with intentional movement, but he also says it occurs at rest at night when he is in bed. I will refer him to Neurology for further evaluation.
[2025-05-10 09:51] VITALS: BP 120/62; PULSE 76; RESP 18; TEMP 36.6; O2SAT 96; BMI 33.7
== END 2025-05-10 10:41 | disposition home or self-care (01) ==
LOC: HO.HMCFM 09:31
PROVIDERS: PCP Physician Assistant Medical; Visit Provider Physician Assistant Medical
DX: Z09 Encounter for follow-up examination after completed treatment for conditions other than malignant neoplasm (principal); R25.1 Tremor, unspecified; R55 Syncope and collapse

== ENCOUNTER → 2025-05-10 09:30 | Outpatient (BNVA) | payer MEDICARE, SELFPAY | PROVIDERS: PCP Physician Assistant Medical; Visit Provider Physician Assistant Medical | DX: Z09 Encounter for follow-up examination after completed treatment for conditions other than malignant neoplasm (principal); R25.1 Tremor, unspecified; R55 Syncope and collapse; E11.9 Type 2 diabetes mellitus without complications; I10 Essential (primary) hypertension; G47.33 Obstructive sleep apnea (adult) (pediatric); Z85.07 Personal history of malignant neoplasm of pancreas; Z85.46 Personal history of malignant neoplasm of prostate; Z95.0 Presence of cardiac pacemaker | CPT/HCPCS: 99212 ==

== ENCOUNTER 2025-05-23 12:57 | Outpatient (AMB) | payer MEDICARE, SELFPAY ==
--- NOTE | 2025-05-23 13:29 | MHC.OFFVIS ---
Vital Signs 05/23/25 13:31 Height 5 ft 3 in Weight 188 lb 4.396 oz BMI 33.3 BP 142/72 H Blood Pressure Location Rt brachial Position Sitting Pulse 72 Pulse Source Pulse Oximeter Pulse Oximetry (%) 96 Oxygen Delivery Method Room Air Intake Visit Reasons: DM2 on Ilet Pump Intake Note: Patient presents today to for a follow-up on Type 2 Diabetes Mellitus: Last Diabetic eye exam was on: Last visit was last year, has an exam tomorrow 05/24/2025 Last Podiatry exam was on: Does not see a Materials And Corrosion Engineer Most recent HbA1c: 6.9% 05/23/2025 Random Glucose- 194 mg/dL, Today Field Staff Manager Required: No Accompanied by: Spouse Allergies No Known Allergies (No Known Allergies*) Allergy (Verified 05/23/25 13:32) Medication List - Last Reconciled 05/23/25 by Amadou Reyna MD aspirin 81 mg PO DAILY atorvastatin 40 mg PO DAILY blood-glucose sensor (Dexcom G7 Sensor device) continuous glucose every 10 days cholecalciferol (vitamin D3) 200 mcg (4 x 50 mcg (2,000 unit)) PO DAILY 90 days ferrous sulfate (FeroSul) 325 mg PO BID glucose (Dex4 Glucose Quick Dissolve) 16 grams (4 x 4 gram) PO Q15M PRN Ketone Urine Test (acetone (urine) test) once daily NS ukcjkn-xguomjex-oofuebt 6,000-19,000 -30,000 unit (Creon) TAKE 1 CAPSULE BY MOUTH THREE TIMES DAILY WITH EACH MEAL directed magnesium 250 mg PO DAILY Novolog U-100 Insulin aspart (insulin aspart U-100) 120 units (1.2 mL) subcut DAILY 30 days NS omeprazole 40 mg PO DAILY OneTouch Delica Plus Lancet (lancets) once daily NS OneTouch Verio Flex meter (blood-glucose meter) once daily NS sertraline 50 mg PO DAILY tamsulosin 0.4 mg PO DAILY HPI Comments Details: This is a 70-year-old male with a past medical history of pancreatic cancer in remission s/p Whipple 2018,diabetes presenting for diabetes visit. He is on an ilet insulin pump PMHx: prostate ca, pancreatic cancer s/p whipple, depression, GERD, sleep apnea on CPAP, hyperlipidemia. Patient last saw Jackie Randle NP on 12/13/2024 Current prescriptions: previous insulin plan: Lantus 10 units am 8 units in the evening 18 units total Humalog scale before meals 80-150 8 units 151-200 10 units 201-300 12 units- 10 over 300 14 units- 10 Was recently started on an islet insulin pump in his doing well with this with the exception of some lows. He has announcing all meals 96-100% of the time. Dexcom download shows average glucose to be 160 with G mi of 7.1% with 69% range, 23% hyperglycemic and 0% very hypoglycemic. No retinopathy:Dr. Carrasquillo eye doctor. Has appt tomorrow He has bilateral cataracts. eye exam scheduled for 10/10 has done yearly Denies neuropathy: no numbness, tingling, pain or cramping in the lower extremeties.Last foot exam today in the office. Does not see podiatry. Type 2 diabetes mellitus-diagnosed prior to having prostate cancer and Whipple, but patient says he was not on medications for it until after this. [facility] Medical History (Updated 05/23/25 @ 13:36 by TURNER Cazares) Tremor of right hand Elevated parathyroid hormone Syncope Microhematuria Vitamin D deficiency Low serum calcium Callus of foot Hepatic steatosis Elevated LFTs Microalbuminuria Diabetes mellitus type 2, insulin dependent Prostate cancer Depression GERD (gastroesophageal reflux disease) Hypercholesterolemia Pancreatic cancer Sleep apnea HTN (hypertension) DVT (deep venous thrombosis) Elevated cholesterol Diabetes Surgical History History of pacemaker History of partial pancreatectomy H/O colonoscopy History of laparotomy Hx of hemorrhoidectomy Hx of appendectomy History of Whipple procedure Family History Father COPD (chronic obstructive pulmonary disease) Mother No problems noted. Social History Household Members: Spouse Housing: House Alcohol intake: never Patient Tobacco Use Status: Former Tobacco user Tobacco use type: Cigarette Cigarette Packs Per Day: 3 Years Smoked: 15 quit in 1989 e-Cigarette/Vaping Use: Never Used Second Hand Smoke Exposure: No service: No Current occupational status: retired Current occupational exposures/hazards: No Cognitive needs: No Hearing needs: Yes (hearing aid) Vision needs: Yes (glasses) Physical Exam Vital Signs: Last Vital Signs Pulse 72 05/23/25 13:31 BP 142/72 H 05/23/25 13:31 Pulse Ox 96 05/23/25 13:31 Oxygen Delivery Method Room Air 05/23/25 13:31 BMI result Body Mass Index 33.3 Absence of Cushingoid features. Absence of acromegalic features. Neck exam reveals nl size thyroid about 15 gms. No thyroid nodules palpable. No carotid bruits present. Lungs CTA. Heart S1 S2, Reg R/R. No M/R/ G. Skin exam reveals absence of vitiligo or acanthosis nigricans. Abdominal exam reveals Soft NT/ND with NA BS. No organomegaly present. Neck Other: . Extrem Other: Visual exam of foot performed. No ulcerations or open lesions. No onchomycosis, no callouses.Pulses 2 + distally Sensation intact to monofilament exam. Vibratory sensation sensed is intact with 128 Hz tuning fork Results AMB Hemoglobin A1c AMB Hemoglobin A1c 6.9 % Last Edit by TURNER Cazares on 05/23/25 13:51 Results Reviewed Results Reviewed: Laboratory Last Values Glucose (Clinic) 194 mg/dL (60-115) H 05/23/25 13:38 Hgb A1c (Clinic) 6.9 % (4.0-6.0) H 05/23/25 13:46 Assessment & Plan Assessment & Plan (1) Diabetes: Comment: insulin dependent Code(s): E11.9 - Type 2 diabetes mellitus without complications Category: Medical Qualifiers: Diabetes mellitus complication status: without complication Diabetes mellitus residential insulin use: without residential use Diabetes mellitus type: type 2 Qualified Code(s): E11.9 - Type 2 diabetes mellitus without complications Plan: This is a 70-year-old male with a history of pancreolytic diabetes status post Whipple procedure which was preceded by type 2 diabetes with excellent glycemic control on iLET pump and no known microvascular or macrovascular complication Plan is to continue the current regimen. We will check lipid profile and microalbumin to creatinine ratio. Patient will also follow up with CDE in the next several weeks. Lastly, I made a referral to Podiatry Orders: Orders AMB Hemoglobin A1c Today E11.9 - Type 2 diabetes mellitus without complications Microalbumin, Random (w Creat) Today E11.9 - Type 2 diabetes mellitus without complications Lipid Panel Today E11.9 - Type 2 diabetes mellitus without complications Referrals Podiatry Referral E11.9 - Type 2 diabetes mellitus without complications Medications: New glucagon 3 mg/actuation (Baqsimi) 3 mg intranasal ONCE 2 ea 4RF Coding Level of Care Code Est Pt Level 4 (76588) Complex EM visit Add On G2211 Diagnoses Type 2 diabetes mellitus without complication, without long-term current use of insulin E11.9 Diabetes mellitus complication status: without complication Diabetes mellitus termite control representative insulin use: without termite control representative use Diabetes mellitus type: type 2
[2025-05-23 13:31] VITALS: BP 142/72; PULSE 72; O2SAT 96; BMI 33.3
[2025-05-23 13:46] LABS: Glucose, Whole Blood 194 mg/dL (60-115)
== END 2025-05-23 14:37 | disposition home or self-care (01) ==
LOC: HO.ENCR 12:58
PROVIDERS: PCP Physician Assistant Medical; Visit Provider Internal Medicine Endocrinology, Diabetes & Metabolism
DX: E11.9 Type 2 diabetes mellitus without complications (principal)
CPT/HCPCS: 99214; G2211

== ENCOUNTER → 2025-05-23 12:57 | Outpatient (BNVA) | payer MEDICARE, SELFPAY | PROVIDERS: PCP Physician Assistant Medical; Visit Provider Internal Medicine Endocrinology, Diabetes & Metabolism | DX: E11.9 Type 2 diabetes mellitus without complications (principal) | CPT/HCPCS: 82947; 83036; 99212 ==

== ENCOUNTER 2025-05-25 09:03 | Outpatient (REF) | payer MEDICARE, SELFPAY ==
--- OUTSIDE RECORDS SUMMARY | 2025-05-25 09:29 | XMS_ITS | Patient Health Record ---
Author Organization [facility] Address [address] [place] [address] Care Team Providers Care Science And Operations Officer Name Role Phone LARISSA LOAIZA Primary Care Provider Keesha darinzhaneAmadou Ellis Unavailable [phone] Allergies No Known Allergies Reason For Referral No Information Medications Medication SIG (Take, Route, Frequency, Duration) Notes Start Date End Date Status Vitamin D 1000 UNIT Orally Active Lantus 100 UNIT/ML as directed Subcutaneous Active Sertraline HCl 50 MG 1 tablet Orally Onc e a day; Duration: 30 day(s) Active Pantoprazole Sodium 40 MG 1 tablet Orall y Once a day; Duration: 30 day(s) Active Lisinopril 20 MG Orally Act aicha Atorvastatin Calcium 80 MG Orally Active Aspirin Adult Low Dose Active Immunizations Vaccine Route Administration Date Status Comme nts Influenza Unknown 07/02/2021 Administered Problems Problem Type SNOMED Code ICD Code Onset Dates Problem Status W/U Status Risk Notes Problem Screening for malignant neoplasm of colon (396101257) Encounter for screening for malignant neoplasm of colon (Z12.11) Active confirmed Problem History of adenomatous polyp of colon (928474559) History of adenomatous polyp of colon (Z86.010) Active confirmed Problem Screening for malignant neoplasm of rectum (188330946) Encounter for screening for malignant neoplasm of rectum (Z12.12) Active confirmed Problem Preprocedural examination (950676935626541) Preprocedural examination (Z01.818) Active confirmed Problem History of polyp of colon (situation) (614197749) History of colon polyps (Z86.010) Active confirmed Problem Long-term current use of antiplatelet drug (020233599286859) Long-term use of aspirin therapy (Z79.82) Active confirmed Problem Diverticulosis of colon (527829621) Diverticulosis of colon (K57.30) Active confirmed Plan Of Treatment Future Test Test Name Order Date COLONOSCOPY 06/04/2016 COLONOSCOPY 12/17/2021 Insurance Providers Payer Name Payer Address Payer Phone Subscriber Number Group Number Insured Name Patient Relationship to Insured Coverage Start Date Coverage End Date [facility] [address] [place], [place] [id number] ALLIE ECHOLS Self - patient is [...] colon Pancreatic cancer 2019 with Whipple at [facility]--no chemo nor XRT--had temporary biliary stent placed by ERCP post-op Surgical History Surgery Date(Month/Year) Appy- age 3 Pilonidal cyst Hemmorrhoids Whipple 2019 Abdominal surgery for fistula from the [place]iano
--- OUTSIDE RECORDS SUMMARY | 2025-05-25 09:29 | XMS_ITS | Clinical Summary ---
Author Organization [facility] Address [address] [place] [address] Phone Care Team Providers Care Sales Vendor Name Role Phone Maritza Rivera Primary Care Provider [phone] Allergies Active Allergy Reactions Criticality Noted Date [...] Problem Noted Date Diagnosed Date Prostate cancer ([facility] V24, [facility] V28) 06/27 Cancer Staging:Clinical:Stage IIIB(cT3a, cN0, cM0, PSA: 2, Grade Group: 1) - Signed by Edward Webber MD on 07/18/2024 Neuroendocrine carcinoma of pancreas ([facility] V24, [facility] V28) Surgical History Surgery Date Site/Laterality Comments WHIPPLE PROCEDURE W/ LAPAROSCOPY CYSTOSCOPY INSERTION / REMOVAL STENT / STONE Medical History Medical History Date Comments Microscopic hematuria Kidney stones BPH (benign prostatic hyperplasia) Hypercholesterolemia Neuroendocrine carcinoma of pancreas ([facility] V2 4, [facility] V28) Family History Medical History Relation [...] Health Maintenance Due Date Last Done Comments Colorectal Cancer Screening: Colonoscopy 1955 Diabetes: Annual GFR (Glomerular Filtration Rate) 1955 Diabetes: Annual Foot Exam 1965 Diabetes: Annual Retina Eye Exam 1965 Zoster Vaccines (1 of 2) 1974 Pneumococcal Vaccine: 50+ Years (2 of 2 - PCV) 09/07/2012 09/07/2011 Abdominal Aortic Aneurysm (AAA) Screen 05/23/2024 Cholesterol Screening (Lipid Panel) 05/23/2024 Falls Risk Assessment 05/23/2024 Hepatitis C Screening 05/23/2024 Medicare Annual Wellness Visit 05/23/2024 Social Influencers of Health Screening 05/23/2024 Diabetes: Annual Urine Albumin-Creatinine Ratio (uACR) 07/18/2024 Diabetes: Blood Sugar Control Test (HGBA1C) 07/18/2024 Hypertension/CHF/CAD Annual BMP Blood Test 07/18/2024 Depression Screening 08/16/2024 COVID-19 Vaccine (8 - Mixed Product risk season) 2025 04/25/2024, 05/05/2023, 04/27/2022, Additional history exists Influenza Vaccine (#1) 2025 , 04/30/2023, 04/27/2022, Additional history exists DTaP,Tdap,and Td [...] [place] - [place] Care Teams Sales Vendor Relationship Specialty Start Date End Date Maritza Rivera PA [address] [place] [id number] PCP - General Physician Outdoor Guide 08/03/24
[2025-05-25 11:27] LABS: Cholesterol 110 mg/dL (<200); HDL Cholesterol 33 mg/dL (>40); Triglycerides 128 mg/dL (<150)
[2025-05-25 16:01] LABS: Microalbum/Creatinine Ratio Ur 41.6 ug/mg cr (<30)
== END 2025-05-25 09:04 | disposition home or self-care (01) ==
LOC: HO.WFDLDS 09:03
PROVIDERS: Visit Provider Internal Medicine Endocrinology, Diabetes & Metabolism
DX: E11.9 Type 2 diabetes mellitus without complications (principal)
CPT/HCPCS: 36415; 80061; 82043; 82570

== ENCOUNTER 2025-05-29 15:34 | Outpatient (AMB) | payer MEDICARE, SELFPAY ==
--- OUTSIDE RECORDS SUMMARY | 2025-05-29 18:17 | XMS_ITS | Clinical Summary ---
Author Organization [facility] Address [address] [place] [address] Phone Care Team Providers Care Photogrammetric Engineer Name Role Phone Maritza Rivera Primary Care Provider [phone] Allergies Active Allergy Reactions Criticality Noted Date [...] Problem Noted Date Diagnosed Date Prostate cancer ([facility] V24, [facility] V28) 06/27 Cancer Staging:Clinical:Stage IIIB(cT3a, cN0, cM0, PSA: 2, Grade Group: 1) - Signed by Edward Webber MD on 07/18/2024 Neuroendocrine carcinoma of pancreas ([facility] V[facility], [facility] V28) Surgical History Surgery Date Site/Laterality Comments WHIPPLE PROCEDURE W/ LAPAROSCOPY CYSTOSCOPY INSERTION / REMOVAL STENT / STONE Medical History Medical History Date Comments Microscopic hematuria Kidney stones BPH (benign prostatic hyperplasia) Hypercholesterolemia Neuroendocrine carcinoma of pancreas ([facility] V2 4, [facility] V28) Family History Medical History Relation Name [...] [place] Care Teams Photogrammetric Engineer Relationship Specialty Start Date End Date Maritza Rivera PA [address] [place] [id number] PCP - General Physician Application Architect 08/03/24
--- OUTSIDE RECORDS SUMMARY | 2025-05-29 18:17 | XMS_ITS | Patient Health Record ---
Author Organization [facility] Address [address] [place] [address] Care Team Providers Care Box Maker Wood Name Role Phone LARISSA LOAIZA Primary Care Provider Keesha darinzhaneAmadou Ellis Unavailable [phone] Allergies No Known Allergies Reason For Referral [...] Problem Screening for malignant neoplasm of colon (983954943) Encounter for screening for malignant neoplasm of colon (Z12.11) Active confirmed Problem History of adenomatous polyp of colon (578670591) History of adenomatous polyp of colon (Z86.010) Active confirmed Problem Screening for malignant neoplasm of rectum (052924715) Encounter for screening for malignant neoplasm of rectum (Z12.12) Active confirmed Problem Preprocedural examination (761225684109866) Preprocedural examination (Z01.818) Active confirmed Problem History of polyp of colon (situation) (056803867) History of colon polyps (Z86.010) Active confirmed Problem Long-term current use of antiplatelet drug (313864637382820) Long-term use of aspirin therapy (Z79.82) Active confirmed Problem Diverticulosis of colon (122042424) Diverticulosis of colon (K57.30) Active confirmed Plan Of Treatment Future Test Test Name Order Date COLONOSCOPY 06/04/2016 COLONOSCOPY 12/17/2021 Insurance Providers Payer Name Payer Address Payer Phone Subscriber Number Group Number Insured Name Patient Relationship to Insured Coverage Start Date Coverage End Date [facility] [address] [place], [place] [id number] [phone] [id number] ALLIE ECHOLS Self - patient is [...] on Coumadin IDDM since the Whipple Denies [place],CVA,Lung disease,renal disease HTN Sleep apnea-uses CPAP Colonoscopy 08/2016 with 2 sm all tubular adenomas removed, small AVM in ascending colon Pancreatic cancer 2019 with Whipple at [facility]--no chemo nor XRT--had temporary biliary stent placed by ERCP post-op Surgical History Surgery Date(Month/Year) Appy- age 3 Pilonidal cyst Hemmorrhoids Whipple 2019 Abdominal surgery for fistula from the mariano
--- NOTE | 2025-05-31 16:02 | A.OFFVIS_ITS ---
Intake Visit Reasons: medtronic device check only Allergies No Known Allergies (No Known Allergies*) Allergy (Verified 05/23/25 13:32) [facility] Medical History (Updated 05/23/25 @ 13:36 by TURNER Cazares) Tremor of right hand Elevated parathyroid hormone Syncope Microhematuria Vitamin D deficiency Low serum calcium Callus of foot Hepatic steatosis Elevated LFTs Microalbuminuria Diabetes mellitus type 2, insulin dependent Prostate cancer Depression GERD (gastroesophageal reflux disease) Hypercholesterolemia Pancreatic cancer Sleep apnea HTN (hypertension) DVT (deep venous thrombosis) Elevated cholesterol Diabetes Surgical History History of pacemaker History of partial pancreatectomy H/O colonoscopy History of laparotomy Hx of hemorrhoidectomy Hx of appendectomy History of Whipple procedure Family History Father COPD (chronic obstructive pulmonary disease) Mother No problems noted. Social History Household Members: Spouse Housing: House Alcohol intake: never Patient Tobacco Use Status: Former Tobacco user Tobacco use type: Cigarette Cigarette Packs Per Day: 3 Years Smoked: 15 quit in 1989 e-Cigarette/Vaping Use: Never Used Second Hand Smoke Exposure: No service: No Current occupational status: retired Current occupational exposures/hazards: No Cognitive needs: No Hearing needs: Yes (hearing aid) Vision needs: Yes (glasses) Office Procedures Cardiac Device Check Cardiac Device Check Details: Date of service- 05/21/2025 ; Battery life >14 years; normal lead parameters; AP 26%; LOGISTICS SUPPLY OFFICER 3.4%; no significant arrhythmias. Overall normal device function. [id number]-[id number] Cardiac Device Interrogation, pacemaker Procedure code (CPT) selection complete Assessment & Plan Assessment & Plan (1) Pacemaker: Comment: Medtronic dual chamber 04/20/25 for CHB Code(s): Z95.0 - Presence of cardiac pacemaker Category: Medical (2) Complete heart block: Code(s): I44.2 - Atrioventricular block, complete Category: Medical Plan x Coding Level of Care Code Procedure Only Diagnoses Pacemaker Z95.0 Complete heart block I44.2 CPT Codes Cardiac Device Check - Cardiac Device 12: [id number]-Bzsxge Cardiac Device Interrogation, pacemaker ([id number])
== END 2025-05-29 16:37 | disposition home or self-care (01) ==
LOC: HO.HCS 15:35
PROVIDERS: PCP Physician Assistant Medical; Visit Provider Internal Medicine
DX: I44.2 Atrioventricular block, complete (principal); Z95.0 Presence of cardiac pacemaker
CPT/HCPCS: 93280

== ENCOUNTER → 2025-05-29 15:34 | Outpatient (BNVA) | payer MEDICARE, SELFPAY | PROVIDERS: PCP Physician Assistant Medical; Visit Provider Internal Medicine | DX: I44.2 Atrioventricular block, complete (principal); I10 Essential (primary) hypertension; Z95.0 Presence of cardiac pacemaker | CPT/HCPCS: 93280 ==

== ENCOUNTER 2025-06-08 10:04 | Outpatient (AMB) | payer MEDICARE, SELFPAY ==
[2025-06-08 10:25] VITALS: BMI 32.8
--- NOTE | 2025-06-08 10:25 | A.OFFVIS_ITS ---
Vital Signs 06/08/25 10:25 Height 5 ft 3 in Weight 185 lb BMI 32.8 Intake Visit Reasons: Type 2 diabetes mellitus without complications Intake Note: Varinder is a 70 year old male who presents today as a new patient for a diabetic foot exam. Patient sugars are currently at 374 and his last reported A1c was 6.9%. He denies experiencing numbness or tingling in his feet and has no history of wounds or amputations to his foot. Patient has not experienced any nausea, vomiting, dizziness, or headaches recently Allergies No Known Allergies (No Known Allergies*) Allergy (Verified 05/23/25 13:32) HPI HPI Type 2 diabetes mellitus without complications: Details: 70-year-old male with extensive past medical history which includes diabetes mellitus type 2, history of pancreatic cancer status post pancreatectomy, prostate cancer s/p radiation therapy, presents for annual diabetic foot evaluation and painful lesion on the bottom of his feet. Patient states he has not seen a turbine mechanic previously and has been tolerating the pain to his feet with shoe wear modifications. He has found relief with [place] shoes. He denies any history of ulcerations to his feet, denies burning numbness or tingling. [facility] Medical History (Updated 06/08/25 @ 11:20 by Samir aHre DPM) Tremor of right hand Elevated parathyroid hormone Syncope Microhematuria Vitamin D deficiency Low serum calcium Callus of foot Hepatic steatosis Elevated LFTs Microalbuminuria Diabetes mellitus type 2, insulin dependent Prostate cancer Depression GERD (gastroesophageal reflux disease) Hypercholesterolemia Pancreatic cancer Sleep apnea HTN (hypertension) DVT (deep venous thrombosis) Elevated cholesterol Diabetes Surgical History History of pacemaker History of partial pancreatectomy H/O colonoscopy History of laparotomy Hx of hemorrhoidectomy Hx of appendectomy History of Whipple procedure Family History Father COPD (chronic obstructive pulmonary disease) Mother No problems noted. Social History Household Members: Spouse Housing: House Alcohol intake: never Patient Tobacco Use Status: Former Tobacco user Tobacco use type: Cigarette Cigarette Packs Per Day: 3 Years Smoked: 15 quit in 1989 e-Cigarette/Vaping Use: Never Used Second Hand Smoke Exposure: No service: No Current occupational status: retired Current occupational exposures/hazards: No Cognitive needs: No Hearing needs: Yes (hearing aid) Vision needs: Yes (glasses) Review of Systems Const All systems reviewed & are unremarkable except as noted in HPI and below Physical Exam Vital Signs: BMI result Body Mass Index 32.8 Office Procedures AMB Debridement/Avulsion Podia Details: Procedure: Callus debridement Location: sub-1st MTP bilateral feet (2) Anesthesia: N/A Description: The affected area was cleansed with an antiseptic solution. Using a sterile #15 blade, the hyperkeratotic tissue was radially debrided from the foot. All callused tissue was removed down to normal skin without causing bleeding or discomfort. The area was inspected for underlying ulceration or infection. Patient tolerated the procedure well. No complications noted. Tolerance: Patient tolerated procedure well, no immediate complications. 60901-Qpxkfinjolv of Callus (2-4) Procedure code (CPT) selection complete Results Reviewed Results Reviewed: Laboratory Tests 05/23/25 13:46 Hgb A1c (Clinic) 6.9 H Assessment & Plan Assessment & Plan (1) Diabetes mellitus type 2, insulin dependent: Code(s): E11.9 - Type 2 diabetes mellitus without complications; Z79.4 - terminal makeup operator (current) use of insulin Category: Medical Plan: Risk Stratification: No current ulceration, infection, or pre-ulcerative lesion. No loss of protective sensation or peripheral arterial disease. No plans for further testing/referrals for non-invasive vascular studies. Patient is at low risk for diabetic foot complications at this time. Recommendations: Continue routine foot care and daily self-inspection. Recommend moisturizing daily. Recommend supportive proper fitting shoe-wear. The patient may require diabetic shoes in the future. Reinforced diabetic foot education and risks from peripheral neuropathy. (2) Metatarsalgia of both feet: Code(s): M77.41 - Metatarsalgia, right foot; M77.42 - Metatarsalgia, left foot Category: Medical Plan: * recommended supportive shoes with inserts. * Discussed custom diabetic shoes which the patient deferred at this time. (3) Callus: Code(s): L84 - Corns and callosities Category: Medical Plan: * debrided lesions x2 * applied dancer's pad to shoes bilaterally. * Rx urea cream * Follow up in 6 weeks Orders: Orders AMB Debridement/Avulsion Podiatry Today E11.9 - Type 2 diabetes mellitus without complications, L84 - Corns and callosities Medications: New urea 37.5% 1 appl topical DAILY 142 grams 3RF callus L84 - Corns and callosities Coding Level of Care Code New Pt Level 4 (09655) Diagnoses Diabetes mellitus type 2, insulin dependent E11.9; Z79.4 Metatarsalgia of both feet M77.41; M77.42 Callus L84 CPT Codes Skin Debridement - CPT: 44206-Flqpazanxcz of Callus (2-4) ([id number]) Time Spent (min) 35
--- OUTSIDE RECORDS SUMMARY | 2025-06-08 11:27 | XMS_ITS | Patient Health Record ---
Author Organization [facility] Address [address] [place] [address] Care Team Providers Care Hair Assistant Name Role Phone LARISSA LOAIZA Primary Care Provider Keesha darinzhaneAmadou Ellis Unavailable [phone] Allergies No Known Allergies Reason For Referral [...] Problem Screening for malignant neoplasm of colon (637844138) Encounter for screening for malignant neoplasm of colon (Z12.11) Active confirmed Problem History of adenomatous polyp of colon (020550668) History of adenomatous polyp of colon (Z86.010) Active confirmed Problem Screening for malignant neoplasm of rectum (444676228) Encounter for screening for malignant neoplasm of rectum (Z12.12) Active confirmed Problem Preprocedural examination (017765486734997) Preprocedural examination (Z01.818) Active confirmed Problem History of polyp of colon (situation) (400799339) History of colon polyps (Z86.010) Active confirmed Problem Long-term current use of antiplatelet drug (617044178473395) Long-term use of aspirin therapy (Z79.82) Active confirmed Problem Diverticulosis of colon (313409763) Diverticulosis of colon (K57.30) Active confirmed Plan Of Treatment Future Test Test Name Order Date COLONOSCOPY 06/04/2016 COLONOSCOPY 12/17/2021 Insurance Providers Payer Name Payer Address Payer Phone Subscriber Number Group Number Insured Name Patient Relationship to Insured Coverage Start Date Coverage End Date [facility] [address] [place], [place] [id number] ALLIE ECHOLS Self - patient is [...] on Coumadin IDDM since the Whipple Denies [place],CVA,Lung disease,renal disease HTN Sleep apnea-uses CPAP Colonoscopy 08/2016 with 2 sm all tubular adenomas removed, small AVM in ascending colon Pancreatic cancer 2019 with Whipple at [facility]--no chemo nor XRT--had temporary biliary stent placed by ERCP post-op Surgical History Surgery Date(Month/Year) Appy- age 3 Pilonidal cyst Hemmorrhoids Whipple 2019 Abdominal surgery for fistula from the mariano
--- OUTSIDE RECORDS SUMMARY | 2025-06-08 11:27 | XMS_ITS | Clinical Summary ---
Author Organization [facility] Address [address] [place] [address] Phone Care Team Providers Care Information Systems Security Manager Name Role Phone Maritza Rivera Primary Care Provider [phone] Allergies Active Allergy Reactions Criticality Noted Date [...] Problem Noted Date Diagnosed Date Prostate cancer ([facility] V24, [facility] V28) 06/27 Cancer Staging:Clinical:Stage IIIB(cT3a, cN0, cM0, PSA: 2, Grade Group: 1) - Signed by Edward Webber MD on 07/18/2024 Neuroendocrine carcinoma of pancreas ([facility] V24, [facility] V28) Surgical History Surgery Date Site/Laterality Comments WHIPPLE PROCEDURE W/ LAPAROSCOPY CYSTOSCOPY INSERTION / REMOVAL STENT / STONE Medical History Medical History Date Comments Microscopic hematuria Kidney stones BPH (benign prostatic hyperplasia) Hypercholesterolemia Neuroendocrine carcinoma of pancreas ([facility] V2 4, [facility] V28) Family History Medical History [...] [place] Care Teams Information Systems Security Manager Relationship Specialty Start Date End Date Maritza Rivera PA [address] [place] [id number] PCP - General Physician Oracle Soa Developer 08/03/24
== END 2025-06-08 11:07 | disposition home or self-care (01) ==
LOC: HO.HPODS 10:05
PROVIDERS: PCP Physician Assistant Medical; Visit Provider Student in an Organized Health Care Education/Training Program
DX: E11.9 Type 2 diabetes mellitus without complications (principal); Z79.4 Long term (current) use of insulin; M77.41 Metatarsalgia, right foot; M77.42 Metatarsalgia, left foot; L84 Corns and callosities
CPT/HCPCS: 11056; 99204

== ENCOUNTER → 2025-06-08 10:04 | Outpatient (BNVA) | payer MEDICARE, SELFPAY | PROVIDERS: PCP Physician Assistant Medical; Visit Provider Student in an Organized Health Care Education/Training Program | DX: E11.628 Type 2 diabetes mellitus with other skin complications (principal); L84 Corns and callosities; M77.41 Metatarsalgia, right foot; M77.42 Metatarsalgia, left foot | CPT/HCPCS: 11056; 99202 ==

== ENCOUNTER 2025-06-14 10:17 | Outpatient (AMB) | payer MEDICARE, SELFPAY ==
--- NOTE | 2025-06-14 11:00 | MHC.AMDMED ---
Intake Intake Visit Reasons: 60 mins Cloth Mender Required: No Accompanied by: Spouse Allergies No Known Allergies (No Known Allergies*) Allergy (Verified 05/23/25 13:32) HPI Comprehensive Diabetes Asmnt Most Recent Diabetes Results: Microalb/Creat Ratio, (<30) 41.6 ug/mg cr H 05/25/25 Cholesterol, (<200) 110 mg/dL 05/25/25 HDL Cholesterol, (>40) 33 mg/dL L 05/25/25 Triglycerides, (<150) 128 mg/dL 05/25/25 Creatinine, (0.5-1.4) 1.15 mg/dL 03/29/25 BUN, (9-16) 8 mg/dL L 03/29/25 Sodium, (135-145) 145 mmol/L 03/29/25 Potassium, (3.3-5.1) 3.9 mmol/L 03/29/25 Chloride, (96-108) 108 mmol/L 03/29/25 Carbon Dioxide, (22-29) 29 mmol/L 03/29/25 Calcium, (8.4-10.2) 8.6 mg/dL 03/29/25 AST, (5-37) 35 U/L 03/29/25 ALT, (0-40) 34 U/L 03/29/25 Total Protein, (6.5-8.0) 6.5 g/dL 03/29/25 Albumin, (3.5-5.0) 4.1 g/dL 03/29/25 [facility] Medical History (Updated 06/08/25 @ 11:20 by Samir Hare DPM) Tremor of right hand Elevated parathyroid hormone Syncope Microhematuria Vitamin D deficiency Low serum calcium Callus of foot Hepatic steatosis Elevated LFTs Microalbuminuria Diabetes mellitus type 2, insulin dependent Prostate cancer Depression GERD (gastroesophageal reflux disease) Hypercholesterolemia Pancreatic cancer Sleep apnea HTN (hypertension) DVT (deep venous thrombosis) Elevated cholesterol Diabetes Surgical History History of pacemaker History of partial pancreatectomy H/O colonoscopy History of laparotomy Hx of hemorrhoidectomy Hx of appendectomy History of Whipple procedure Family History Father COPD (chronic obstructive pulmonary disease) Mother No problems noted. Social History Household Members: Spouse Housing: House Alcohol intake: never Patient Tobacco Use Status: Former Tobacco user Tobacco use type: Cigarette Cigarette Packs Per Day: 3 Years Smoked: 15 quit in 1989 e-Cigarette/Vaping Use: Never Used Second Hand Smoke Exposure: No service: No Current occupational status: retired Current occupational exposures/hazards: No Cognitive needs: No Hearing needs: Yes (hearing aid) Vision needs: Yes (glasses) Assessment & Plan Assessment & Plan (1) Diabetes mellitus type 2, insulin dependent: Code(s): E11.9 - Type 2 diabetes mellitus without complications; Z79.4 - snf (current) use of insulin Plan: Patient presents for pump training for iLet pump and CGM training today. The following topics were reviewed today: -Pump therapy basic concepts: Basal/bolus -For most effective glucose control bolus prior to meals - Off pump backup insulin plan iLet Alerts: ??? High Alert: 300 mg/dl ??? Low Alert: 75 mg/dl Patient's last A1c on 05/23/2025 6.9% Reviewed patient's pump data, patient has been pausing pump because he has been working in the yd to avoid episodes of hypoglycemia. It does appear several episodes of hypoglycemia was caused by late meal announcements. Reminded patient the importance of announcing meals prior to eating, if it is more than 15 minutes after you start eating and not announce meal to avoid risk of hypoglycemia. Overnight hypoglycemia has resolved. Reviewed with patient site rotation for infusion set, patient does on the front lower abdomen that appear to have bruising and some small bumps under the skin. Encourage patient to move infusion sets to other areas abdomen or upper hip Patient did report that in April 2025 he had a pacemaker placed [facility] Discussed with patient if there is an increase in hypoglycemia in the winter months when he is not as active we can do factory reset of insulin pump. Instructed patient to only use room temperature insulin, how to load cartridge or fill pod, with insulin. Fill tubing and cannula (if applicable) Troubleshooting after starting new pod or inserting new insulin set: Occlusion, adhesive tape sensitivity, redness Check BG 2 hours after site change Patient understands the basic concepts of pump therapy, how to give insulin for meals and snacks, how to troubleshoot for hyper and hypoglycemia. Patient [facility] with [facility] as instructed Patient will contact [facility] with questions or concerns, patient given IT number to support in any technical issues related to insulin pump Portions of this note were created using voice recognition software, please excuse any words or phrases that may have been misinterpreted. Coding Level of Care Code Est Pt Level 1 (34869) Diagnoses Diabetes mellitus type 2, insulin dependent E11.9; Z79.4
--- OUTSIDE RECORDS SUMMARY | 2025-06-14 12:27 | XMS_ITS | Patient Health Record ---
Author Organization [facility] Address [address] [place] [address] Care Team Providers Care C Java Developer Name Role Phone LARISSA LOAIZA Primary Care Provider Keesha drainzhaneAmadou Ellis Unavailable [phone] Allergies No Known Allergies Reason For Referral [...] Problem Screening for malignant neoplasm of colon (685108757) Encounter for screening for malignant neoplasm of colon (Z12.11) Active confirmed Problem History of adenomatous polyp of colon (275086999) History of adenomatous polyp of colon (Z86.010) Active confirmed Problem Screening for malignant neoplasm of rectum (907781949) Encounter for screening for malignant neoplasm of rectum (Z12.12) Active confirmed Problem Preprocedural examination (034167714905079) Preprocedural examination (Z01.818) Active confirmed Problem History of polyp of colon (situation) (750833469) History of colon polyps (Z86.010) Active confirmed Problem Long-term current use of antiplatelet drug (078065213372727) Long-term use of aspirin therapy (Z79.82) Active confirmed Problem Diverticulosis of colon (616107942) Diverticulosis of colon (K57.30) Active confirmed Plan Of Treatment Future Test Test Name Order Date COLONOSCOPY 06/04/2016 COLONOSCOPY 12/17/2021 Insurance Providers Payer Name Payer Address Payer Phone Subscriber Number Group Number Insured Name Patient Relationship to Insured Coverage Start Date Coverage End Date [facility] [address] [place], [place] [phone] [phone] [id number] ALLIE ECHOLS Self - patient is [...] on Coumadin IDDM since the Whipple Denies [place],CVA,Lung disease,renal disease HTN Sleep apnea-uses CPAP Colonoscopy [...]
--- OUTSIDE RECORDS SUMMARY | 2025-06-14 12:27 | XMS_ITS | Clinical Summary ---
Author Organization [facility] Address [address] [place] [address] Phone Care Team Providers Care Library Clerical Assistant Name Role Phone Maritza Rivera Primary Care Provider [phone] Allergies Active Allergy Reactions Criticality Noted Date [...] Problem Noted Date Diagnosed Date Prostate cancer ([facility] V24, [facility] V28) 06/27 Cancer Staging:Clinical:Stage IIIB(cT3a, cN0, cM0, PSA: 2, Grade Group: 1) - Signed by Edward Webber MD on 07/18/2024 Neuroendocrine carcinoma of pancreas ([facility] V24, [facility] V28) Surgical History Surgery Date Site/Laterality Comments WHIPPLE PROCEDURE W/ LAPAROSCOPY CYSTOSCOPY INSERTION / REMOVAL STENT / STONE Medical History Medical History Date Comments Microscopic hematuria Kidney stones BPH (benign prostatic hyperplasia) Hypercholesterolemia Neuroendocrine carcinoma of pancreas ([facility] V2 4, [facility] V28) Family History Medical History Relation [...] [place] Care Teams Library Clerical Assistant Relationship Specialty Start Date End Date Maritza Rivera PA [address] [place] [id number] PCP - General Physician Computer Operations Manager 08/03/24
== END 2025-06-14 11:04 | disposition home or self-care (01) ==
LOC: HO.ENCR 10:18
PROVIDERS: PCP Physician Assistant Medical; Visit Provider Registered Nurse Diabetes Educator
DX: E11.9 Type 2 diabetes mellitus without complications (principal); Z79.4 Long term (current) use of insulin

== ENCOUNTER → 2025-06-14 10:17 | Outpatient (BNVA) | payer MEDICARE, SELFPAY | PROVIDERS: PCP Physician Assistant Medical; Visit Provider Registered Nurse Diabetes Educator | DX: E11.9 Type 2 diabetes mellitus without complications (principal); Z79.4 Long term (current) use of insulin | CPT/HCPCS: 99211 ==

== ENCOUNTER 2025-06-18 14:18 | Outpatient (AMB) | payer MEDICARE, SELFPAY ==
--- NOTE | 2025-06-18 14:23 | A.OFFVIS_ITS ---
Vital Signs 06/18/25 14:24 Height 5 ft 3 in Weight 194 lb 0.108 oz BMI 34.4 BP 160/78 H Blood Pressure Location Lt brachial Position Sitting Pulse 63 Pulse Source Pulse Oximeter Intake Visit Reasons: f/up-dc/ med concerns Allergies No Known Allergies (No Known Allergies*) Allergy (Verified 05/23/25 13:32) Medication List - Last Reconciled 06/18/25 by Fer Bell MD atorvastatin 40 mg PO DAILY blood-glucose sensor (Dexcom G7 Sensor device) continuous glucose every 10 days cholecalciferol (vitamin D3) 200 mcg (4 x 50 mcg (2,000 unit)) PO DAILY 90 days ferrous sulfate (FeroSul) 325 mg PO BID glucagon 3 mg/actuation (Baqsimi) 3 mg intranasal ONCE glucose (Dex4 Glucose Quick Dissolve) 16 grams (4 x 4 gram) PO Q15M PRN Ketone Urine Test (acetone (urine) test) once daily NS yslzve-sbwgeymv-xpsatoz (pork) 6,000-19,000 -30,000 unit (Creon) TAKE 1 CAPSULE BY MOUTH THREE TIMES DAILY WITH EACH MEAL directed magnesium 250 mg PO DAILY metoprolol succinate ER 25 mg PO DAILY Novolog U-100 Insulin aspart (insulin aspart U-100) 120 units (1.2 mL) subcut DAILY 30 days NS omeprazole 40 mg PO DAILY OneTouch Delica Plus Lancet (lancets) once daily NS OneTouch Verio Flex meter (blood-glucose meter) once daily NS sertraline 50 mg PO DAILY tamsulosin 0.4 mg PO DAILY urea 40% 1 appl topical BID HPI Comments Details: Varinder returns for follow-up. Recently seen in consultation regarding recurrent syncope. He had a couple episodes of syncope and that led to a Holter monitor which showed some pauses as well as 2:1 block. Eventually, he underwent a implantable loop recorder which was abnormal showing long pauses leading to a permanent pacemaker. He was doing okay from that regard but remote monitoring had shown a 14 hour episode of atrial fibrillation. Following this Eliquis was tried but it seems he developed some hematuria and stopped it. Then saw his urologist who apparently told him that he may not be able to take this long-term and recommended him to get a Watchman device rather. It seems he went back on the Eliquis another time but again developed hematuria but it resolved by itself. Overall, the episodes hematuria seems fairly minor and nothing prolonged or persistent. He has a history of diabetes; Whipple's procedure for pancreatic cancer. He has a insulin pump. [facility] Medical History (Updated 06/18/25 @ 15:10 by Fer Bell MD) Paroxysmal atrial fibrillation Tremor of right hand Elevated parathyroid hormone Syncope Microhematuria Vitamin D deficiency Low serum calcium Callus of foot Hepatic steatosis Elevated LFTs Microalbuminuria Diabetes mellitus type 2, insulin dependent Prostate cancer Depression GERD (gastroesophageal reflux disease) Hypercholesterolemia Pancreatic cancer Sleep apnea HTN (hypertension) DVT (deep venous thrombosis) Elevated cholesterol Diabetes Surgical History History of pacemaker History of partial pancreatectomy H/O colonoscopy History of laparotomy Hx of hemorrhoidectomy Hx of appendectomy History of Whipple procedure Family History Father COPD (chronic obstructive pulmonary disease) Mother No problems noted. Social History Household Members: Spouse Housing: House Alcohol intake: never Patient Tobacco Use Status: Former Tobacco user Tobacco use type: Cigarette Cigarette Packs Per Day: 3 Years Smoked: 15 quit in 1989 e-Cigarette/Vaping Use: Never Used Second Hand Smoke Exposure: No service: No Current occupational status: retired Current occupational exposures/hazards: No Cognitive needs: No Hearing needs: Yes (hearing aid) Vision needs: Yes (glasses) Review of Systems Const Denies weakness ENT Denies dizziness Card Denies chest pain, Denies chest pain with activity, Denies syncope, Denies rapid heart rate, Denies pedal edema, Denies edema, Denies leg edema, Denies lightheadedness, Denies palpitations, Denies dyspnea, Denies dyspnea on exertion and Denies orthopnea Resp Denies cough, Denies dyspnea and Denies dyspnea on exertion GI Denies hematochezia and Denies change in stool character Reports hematuria Musc Denies abnormal gait, Denies muscle cramps, Denies muscle weakness, Denies numbness, Denies radiating pain into limb and Denies tingling Neuro Denies abnormal gait, Denies dizziness, Denies syncope, Denies numbness, Denies tingling and Denies weakness Endo Denies palpitations Physical Exam Vital Signs: Last Vital Signs Pulse 63 06/18/25 14:24 BP 160/78 H 06/18/25 14:24 BMI result Body Mass Index 34.4 Const General: comfortable and no acute distress Orientation/consciousness: patient oriented x3 HEENT Other: Unremarkable Head: Yes normal to inspection Neck Neck: Yes normal visual inspection Chest Chest palpation & inspection: normal inspection of the chest Resp Auscultation: clear to auscultation bilaterally Cardio Palpation: normal PMI Heart sounds: S1 normal heart sound present, S2 normal heart sound present, no gallops, no murmurs and no rubs GI Palpation (GI): Soft to palpation Back/Spine/Pelvis Other: unremarkable Skin General skin exam: no rashes or lesions noted Neuro General: patient oriented x3 Extrem General: Yes normal to inspection Psych Mental Status: mental status grossly normal Assessment & Plan Assessment & Plan (1) Complete heart block: Code(s): I44.2 - Atrioventricular block, complete Category: Medical Plan: Recent complete heart block captured on implantable loop recorder with history of syncopal episodes. Status post permanent pacemaker. We will follow up with remotely. (2) Paroxysmal atrial fibrillation: Code(s): I48.0 - Paroxysmal atrial fibrillation Category: Medical Plan: 14 hour episode of atrial fibrillation on the recent remote device check. Has been put on a small dose of beta-blockers. Tried Eliquis and has had episodes of hematuria but nothing persistent. Okay to re-attempt and if able to continue take it. We may be able to do a smaller dose of Eliquis. Any case, it seems urology has recommended Watchman device due to history of prostate cancer and radiation therapy. We discussed about this today and patient is interested. We will refer back to Dr. Pringle who did the pacemaker. I also showed them a sample of the actual Watchman device. (3) Diabetes: Comment: insulin dependent Code(s): E11.9 - Type 2 diabetes mellitus without complications Category: Medical Qualifiers: Diabetes mellitus complication status: without complication Diabetes mellitus long winder tender insulin use: without mcc use Diabetes mellitus type: type 2 Qualified Code(s): E11.9 - Type 2 diabetes mellitus without complications Plan: On insulin pump per patient. (4) Primary hypertension: Code(s): I10 - Essential (primary) hypertension Category: Medical Plan: Blood pressure is high today but previous pressures have been okay. Advised him to do home readings and based on that, he may need medications. Plan Discussion Notes During the visit, we discussed the management of atrial fibrillation and the associated risk of stroke, emphasizing the importance of blood thinners in reducing this risk. We also considered the potential use of a Watchman device to minimize bleeding risks associated with blood thinners. The patient was advised to monitor his blood pressure at home and report any significant changes. Patient was informed and verbally consented to the use of an ambient scribe for clinic note documentation during this visit. Orders: Referrals Cardiac Electrophysiology Referral I48.0 - Paroxysmal atrial fibrillation Patient Instructions: - Monitor blood pressure at home regularly and report any significant changes. - Continue prescribed medications for atrial fibrillation and diabetes. - If bleeding persists, contact the office for further evaluation. Coding Level of Care Code Est Pt Level 4 (35030) Complex EM visit Add On G2211 Diagnoses Complete heart block I44.2 Paroxysmal atrial fibrillation I48.0 Type 2 diabetes mellitus without complication, without long-term current use of insulin E11.9 Diabetes mellitus complication status: without complication Diabetes mellitus long winder tender insulin use: without mcc use Diabetes mellitus type: type 2 Primary hypertension I10
[2025-06-18 14:24] VITALS: BP 160/78; PULSE 63; BMI 34.4
== END 2025-06-18 15:06 | disposition home or self-care (01) ==
LOC: HO.HCS 14:19
PROVIDERS: PCP Physician Assistant Medical; Visit Provider Internal Medicine
DX: I44.2 Atrioventricular block, complete (principal); I48.0 Paroxysmal atrial fibrillation; E11.9 Type 2 diabetes mellitus without complications; I10 Essential (primary) hypertension
CPT/HCPCS: 99214; G2211

== ENCOUNTER → 2025-06-18 14:18 | Outpatient (BNVA) | payer MEDICARE, SELFPAY | PROVIDERS: PCP Physician Assistant Medical; Visit Provider Internal Medicine | DX: R55 Syncope and collapse (principal); I44.2 Atrioventricular block, complete; I48.0 Paroxysmal atrial fibrillation; I10 Essential (primary) hypertension; E11.9 Type 2 diabetes mellitus without complications; Z95.0 Presence of cardiac pacemaker; Z79.4 Long term (current) use of insulin; Z96.41 Presence of insulin pump (external) (internal) | CPT/HCPCS: 99212 ==

== ENCOUNTER 2025-07-19 13:22 | Outpatient (AMB) | payer MEDICARE, SELFPAY ==
[2025-07-19 13:39] VITALS: BMI 34.4
--- NOTE | 2025-07-19 13:39 | A.OFFVIS_ITS ---
Vital Signs 07/19/25 13:39 Height 5 ft 3 in Weight 194 lb BMI 34.4 Intake Visit Reasons: Type 2 diabetes mellitus without complications Intake Note: Varinder is a 70 year old male who presents to the office today for a follow up. At previous visit 2 lesions were debrided. Pt denies any pain. Pt states he has been using the Urea 40% and he believes that is helping. Allergies No Known Allergies (No Known Allergies*) Allergy (Verified 07/19/25 13:40) HPI HPI Type 2 diabetes mellitus without complications: Details: 70-year-old male with extensive past medical history which includes diabetes mellitus type 2, history of pancreatic cancer status post pancreatectomy, prostate cancer s/p radiation therapy, returns for annual diabetic foot evaluation and painful lesion on the bottom of his feet. He has been applying the urea cream and using the sneakers with the pads dispensed last visit which he states have mostly resolved his pain. [facility] Medical History (Updated 06/18/25 @ 15:10 by Fer Bell MD) Paroxysmal atrial fibrillation Tremor of right hand Elevated parathyroid hormone Syncope Microhematuria Vitamin D deficiency Low serum calcium Callus of foot Hepatic steatosis Elevated LFTs Microalbuminuria Diabetes mellitus type 2, insulin dependent Prostate cancer Depression GERD (gastroesophageal reflux disease) Hypercholesterolemia Pancreatic cancer Sleep apnea HTN (hypertension) DVT (deep venous thrombosis) Elevated cholesterol Diabetes Surgical History History of pacemaker History of partial pancreatectomy H/O colonoscopy History of laparotomy Hx of hemorrhoidectomy Hx of appendectomy History of Whipple procedure Family History Father COPD (chronic obstructive pulmonary disease) Mother No problems noted. Social History Household Members: Spouse Housing: House Alcohol intake: never Patient Tobacco Use Status: Former Tobacco user Tobacco use type: Cigarette Cigarette Packs Per Day: 3 Years Smoked: 15 quit in 1989 e-Cigarette/Vaping Use: Never Used Second Hand Smoke Exposure: No service: No Current occupational status: retired Current occupational exposures/hazards: No Cognitive needs: No Hearing needs: Yes (hearing aid) Vision needs: Yes (glasses) Review of Systems Const All systems reviewed & are unremarkable except as noted in HPI and below Physical Exam Vital Signs: BMI result Body Mass Index 34.4 Extrem Other: *Bilateral Lower Extremity Focused Exam Vascular: DP/PT 2/4, CFT<3s to all digits, TG warm to cool, no pedal edema Derm: hyperkeratotic lesion plantar medial 1st MTP bilateral feet Neuro: protective sensation grossly intact to bilateral lower extremities MSK: tracking moderate hallux valgus deformity, 60 degrees dorsiflexion 1st MTP Office Procedures AMB Debridement/Avulsion Podia Details: Procedure: Callus debridement Location: 2 lesions, bilateral feet Anesthesia: N/A Description: The affected area was cleansed with an antiseptic solution. Using a sterile #15 blade, the hyperkeratotic tissue was radially debrided from the foot. All callused tissue was removed down to normal skin without causing bleeding or discomfort. The area was inspected for underlying ulceration or infection. Patient tolerated the procedure well. No complications noted. Tolerance: Patient tolerated procedure well, no immediate complications. [id number]-[id number] of Callus (2-4) Procedure code (CPT) selection complete Results Reviewed Results Reviewed: Laboratory Tests 05/23/25 13:46 Hgb A1c (Clinic) 6.9 H Assessment & Plan Assessment & Plan (1) Metatarsalgia of both feet: Code(s): M77.41 - Metatarsalgia, right foot; M77.42 - Metatarsalgia, left foot Category: Medical Plan: * recommended supportive shoes with inserts. * Discussed custom diabetic shoes which the patient deferred at this time. (2) Callus: Code(s): L84 - Corns and callosities Category: Medical Plan: * debrided lesions x2 * Continue dancer's pads * Continue urea cream * Follow up as needed Coding Level of Care Code Est Pt Level 3 (02405) Diagnoses Metatarsalgia of both feet M77.41; M77.42 Callus L84 CPT Codes Skin Debridement - CPT: 08125-Xlshedssvjd of Callus (2-4) ([id number]) Time Spent (min) 15
== END 2025-07-19 13:54 | disposition home or self-care (01) ==
LOC: HO.HPODS 13:23
PROVIDERS: PCP Physician Assistant Medical; Visit Provider Student in an Organized Health Care Education/Training Program
DX: M77.41 Metatarsalgia, right foot (principal); M77.42 Metatarsalgia, left foot; L84 Corns and callosities
CPT/HCPCS: 11056; 99213

== ENCOUNTER → 2025-07-19 13:22 | Outpatient (BNVA) | payer MEDICARE, SELFPAY | PROVIDERS: PCP Physician Assistant Medical; Visit Provider Student in an Organized Health Care Education/Training Program | DX: E11.9 Type 2 diabetes mellitus without complications (principal); L84 Corns and callosities; M77.41 Metatarsalgia, right foot; M77.42 Metatarsalgia, left foot | CPT/HCPCS: 11056; 99212 ==

== ENCOUNTER 2025-08-13 09:45 | Outpatient (AMB) | payer MEDICARE, SELFPAY ==
--- NOTE | 2025-08-13 10:10 | MHC.PC.OV ---
Vital Signs 08/13/25 10:19 Height 5 ft 3 in Weight 197 lb 4 oz BMI 34.9 BP 130/70 Blood Pressure Location Lt brachial Position Sitting Respiration 15 Pulse 97 Pulse Source Pulse Oximeter Temp 98.7 F Temp Source Temporal Artery Scan Pulse Oximetry (%) 97 Oxygen Delivery Method Room Air Intake Visit Reasons: follow up Intake Note: Varinder presents in the office today for a follow up to hospital discharge, syncope, pacemaker, tremor. Patient is going for a watchman on August 29, 2025. Reservation Clerk Required: No Allergies No Known Allergies (No Known Allergies*) Allergy (Verified 08/13/25 10:13) Tobacco use date assessed: 08/13/25 Dental Screening Dental Screen Date: 08/13/25 Did you have a dental visit in the last 12 months?: Yes Did you have a dental problem in the last 6 months where you did not have access to dental care?: No Was dental information given to patient?: Patient has dentist HPI HPI Comments History of Present Illness Details This is a 70-year-old male with a past medical history of pancreatic cancer in remission s/p Whipple 2018, depression, GERD, chronically elevated LFTs, insulin-dependent type 2 diabetes, sleep apnea on CPAP, hyperlipidemia and prostate cancer presenting for follow up. Patient was admitted 04/20/2025 to 04/21/2025 after presenting with a history of multiple syncopal episodes and was found to have an 8 second pause on implantable loop recorder consistent with a high-degree AV block. He underwent pacemaker placement on 04/20/2025. Sees Dr. Pringle. Evaluated by urology and cardiology following self liimited episodes of microhematuria related to eliquis. Reports CT and urine cytologies normal. Watchman procedure scheduled 08/31/25. Patient reports cardiology started him recently on metoprolol succinate 25 mg daily. Blood pressure today is 130/70. He is on atorvastatin for hyperlipidemia. Pancreatic cancer-2018 Whipple, sees Dr. Reyes annually. Denies abdominal pain, nausea, vomiting or unexplained weight loss. On chronic PPI following Whipple. Prostate cancer-diagnosed 2023. He sees Dr. Joy. Completed radiation therapy at [facility]. Type 2 diabetes mellitus-diagnosed prior to having prostate cancer and Whipple, but patient says he was not on medications for it until after this. Dr. Carrasquillo is eye doctor. He has bilateral cataracts. Patient followed by [facility] [place] [place] endocrinology, and he is on the islet pump. He does not drink alcohol. POC 273 per CGM. 7.1% CMI Patient has a follow up with Dr. Reyna 08/23/25. The patient's liver enzymes were elevated on his last labs so I previously reviewed his records from [facility]. Records stated he had an ultrasound indicating a need for a GI evaluation. It says he had an ERCP 12/29/2019 due to elevated liver enzymes and abdominal ultrasound showed hepatic steatosis with a cyst. He saw [facility] a few months ago. Records requested. Depression treated with sertraline 50 mg daily. He feels like this is working well though he does have a lot of stress around his health issues. LOTTIE-followed by sleep medicine. Patient on CPAP. Vitamin d deficiency-taking 2000 IU daily. Received flu vaccine at the pharmacy. ROS: Constitutional: No unexplained weight loss, fever, chills or night sweats. Eyes: No vision changes, blurry vision, double vision, eye pain, eye redness, eye discharge. Respiratory: No shortness of breath Cardiovascular: No chest pain Gastrointestinal: No anorexia, nausea, vomiting or diarrhea. No abdominal pain or blood in stool. Neurologic: No headache, dizziness, syncope, unilateral weakness, ataxia Endocrine: No cold or heat intolerance. Psychiatric: No increased depressive symptoms. Physical exam: Constitutional: Alert, in no distress. Eyes: Pupils are equal, round and reactive to light. Extraocular muscles intact. Neck: Supple, Full range of motion. No lymphadenopathy. Respiratory: Clear to auscultation. Cardiovascular: S1 S2 regular. No murmurs. Extremities: Warm and well perfused. No clubbing, cyanosis or edema. Psychiatric: Normal mood and affect [facility] Medical History (Updated 06/18/25 @ 15:10 by Fer Bell MD) Paroxysmal atrial fibrillation Tremor of right hand Elevated parathyroid hormone Syncope Microhematuria Vitamin D deficiency Low serum calcium Callus of foot Hepatic steatosis Elevated LFTs Microalbuminuria Diabetes mellitus type 2, insulin dependent Prostate cancer Depression GERD (gastroesophageal reflux disease) Hypercholesterolemia Pancreatic cancer Sleep apnea HTN (hypertension) DVT (deep venous thrombosis) Elevated cholesterol Diabetes Surgical History History of pacemaker History of partial pancreatectomy H/O colonoscopy History of laparotomy Hx of hemorrhoidectomy Hx of appendectomy History of Whipple procedure Family History Father COPD (chronic obstructive pulmonary disease) Mother No problems noted. Social History (Updated 08/13/25 @ 10:13 by Elise Rainey CMA) Household Members: Spouse Housing: House Alcohol intake: never Patient Tobacco Use Status: Former Tobacco user Tobacco use type: Cigarette Cigarette Packs Per Day: 3 Years Smoked: 15 quit in 1989 e-Cigarette/Vaping Use: Never Used Second Hand Smoke Exposure: No service: No Current occupational status: retired Current occupational exposures/hazards: No Cognitive needs: No Hearing needs: Yes (hearing aid) Vision needs: Yes (glasses) Questionnaire Thrive Questionnaire Date Thrive assessed: 10/09/24 I am a: Patient What is your living situation today?: I have a steady place to live Within the past 12 months, did the food you bought not last and you didn't have the money to get more?: Often true Within the past 12 months, did you worry whether your food would run out before you got money to buy more?: I choose not to answer this question Do you have trouble paying for medicines?: I choose not to answer this question Do you have trouble getting transportation to medical appointments?: No Do you have trouble paying your heating and electricity bill?: Yes Do you have trouble taking care of your child, family member or friend?: No Do you have trouble with day-to-day activities such as bathing, preparing meals, shopping, managing finances, etc.?: I choose not to answer this question Are you currently unemployed and looking for a job?: I choose not to answer this question Are you interested in more education?: No Currently or been in a relationship where the following occur: I choose not to answer THRIVE Score: 2 TERRI-7 AMB Questionnaire TERRI-7 Date TERRI - 7 assessed: 01/11/25 Source: Developed by Drs. Amadou Hanna, Breann Murillo, Mahamed Lynn and colleagues, with an educational shawna from [employer]. Physical exam (Primary Care) Vital Signs: Last Vital Signs Temp 98.7 F 08/13/25 10:19 Pulse 97 08/13/25 10:19 Resp 15 08/13/25 10:19 BP 130/70 08/13/25 10:19 Pulse Ox 97 08/13/25 10:19 Oxygen Delivery Method Room Air 08/13/25 10:19 BMI result Body Mass Index 34.9 Tobacco/Smoking Status: Tobacco use Status Tobacco use date assessed 08/13/25 08/13/25 10:27 Patient Tobacco Use Status Former Tobacco user 08/13/25 10:13 Tobacco use type Cigarette 08/13/25 10:13 e-Cigarette/Vaping Use Never Used 08/13/25 10:13 Thrive Assessment: Date of Thrive Assessment Date Thrive assessed 10/09/24 08/13/25 10:10 Currently or been in a relationship where the following occur: I choose not to answer Coding Level of Care Code Est Pt Level 4 (66261) Add On Problem Visit Only Diagnoses Diabetes mellitus type 2, insulin dependent E11.9; Z79.4 Elevated LFTs R79.89 Hepatic steatosis K76.0 Microalbuminuria R80.9 Obstructive sleep apnea syndrome G47.33 Sleep apnea type: obstructive Hypercholesterolemia E78.00 Prostate cancer C61 Malignant neoplasm of pancreas, unspecified location of malignancy C25.9 Pancreatic malignancy location: unspecified Microhematuria R31.29 Pacemaker Z95.0 Primary hypertension I10 Assessment & Plan Assessment & Plan (1) Diabetes mellitus type 2, insulin dependent: Code(s): E11.9 - Type 2 diabetes mellitus without complications; Z79.4 - intermediate designer (current) use of insulin Category: Medical (2) Elevated LFTs: Code(s): R79.89 - Other specified abnormal findings of blood chemistry Category: Medical (3) Hepatic steatosis: Code(s): K76.0 - Fatty (change of) liver, not elsewhere classified Category: Medical (4) Microalbuminuria: Code(s): R80.9 - Proteinuria, unspecified Category: Medical (5) Sleep apnea: Comment: uses CPAP Code(s): G47.30 - Sleep apnea, unspecified Category: Medical Qualifiers: Sleep apnea type: obstructive Qualified Code(s): G47.33 - Obstructive sleep apnea (adult) (pediatric) (6) Hypercholesterolemia: Code(s): E78.00 - Pure hypercholesterolemia, unspecified Category: Medical (7) Prostate cancer: Code(s): C61 - Malignant neoplasm of prostate Category: Medical (8) Pancreatic cancer: Code(s): C25.9 - Malignant neoplasm of pancreas, unspecified Category: Medical Qualifiers: Pancreatic malignancy location: unspecified Qualified Code(s): C25.9 - Malignant neoplasm of pancreas, unspecified (9) Microhematuria: Code(s): R31.29 - Other microscopic hematuria Category: Medical (10) Pacemaker: Comment: Medtronic dual chamber 04/20/25 for CHB Code(s): Z95.0 - Presence of cardiac pacemaker Category: Medical (11) Primary hypertension: Code(s): I10 - Essential (primary) hypertension Category: Medical Plan In summary this is a 69-year-old male with a complex past medical history who presented for follow up today. The patient's A1c has improved. Hypoglycemia episodes are less frequent. 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 Reviewed treatment of hypoglycemia. I requested notes from the appointment with Gastroenterology for elevated liver enzymes/hepatic steatosis. He does not drink alcohol. Recommended Mediterranean diet. He is on a statin. Last LDL was at goal. He completed radiation therapy for prostate cancer, and I requested notes from urology. Patient reports having negative CT and urine cytologies for microscopic hematuria which was thought to be related to Eliquis. He will follow up with Cardiology as planned. He has a Watchman procedure scheduled in August. No known recurrence of pancreatic cancer. He sees Dr. Reyes annually. Follow up in 3 months. Orders: Orders Hemoglobin A1c 08/13/25 R73.9 - Hyperglycemia, unspecified
[2025-08-13 10:19] VITALS: BP 130/70; PULSE 97; RESP 15; TEMP 37.1; O2SAT 97; BMI 34.9
--- OUTSIDE RECORDS SUMMARY | 2025-08-13 10:25 | XMS_ITS | Clinical Summary ---
Author Organization [facility] Address [address] [place] [address] Phone Care Team Providers Care Plant Mechanic Name Role Phone Maritza Rivera Primary Care Provider [phone] Allergies Active Allergy Reactions Criticality Noted Date [...] MD on 07/18/2024 Neuroendocrine carcinoma of pancreas Surgical History Surgery Date Site/Laterality Comments WHIPPLE PROCEDURE W/ LAPAROSCOPY CYSTOSCOPY INSERTION / REMOVAL STENT / STONE Medical History Medical History Date Comments Microscopic hematuria Kidney stones BPH (benign prostatic hyperplasia) Hypercholesterolemia Neuroendocrine carcinoma of pancreas (CMS/HCC V2 4, CMS/HCC V28) Family History Medical History Relation Name [...] file Not on file Not on file Last Filed Vital Signs Vital Sign Reading [...] Test 07/18/2024 Depression Screening 08/16/2024 COVID-19 Vaccine ( season) 2025 04/25/2024, 05/05/2023, 04/27/2022, Additional history [...] CROSS - [place] Care Teams Plant Mechanic Relationship Specialty Start Date End Date Maritza Rivera PA [address] [place] [address] PCP - General Physician Financial Assistant 08/03/24
--- OUTSIDE RECORDS SUMMARY | 2025-08-13 10:25 | XMS_ITS | Patient Health Record ---
Author Organization [facility] Address [address] [place] [id number] Care Team Providers Care Can Solderer Name Role Phone LARISSA LOAIZA Primary Care Provider Amadou Vang Unavailable [phone] Allergies No Known Allergies Reason For Referral No Information Medications Medication SIG (Take, Route, Frequency, Duration) Notes Start Date End Date Status Vitamin D 1000 UNIT Tablet Orally Active Lantus 100 UNIT/ML Solution as directed Subcutaneous Act aicha Sertraline HCl 50 MG Tablet 1 tablet Orally Once a day; Duration: 30 day(s) Active Pantoprazole Sodium 40 MG Tablet Delayed Release 1 tablet Orally Once a day; Duration: 30 day(s) Active Lisinopril 20 MG Tablet Orally Active Atorvastatin Calcium 80 MG Tablet Orally Active Aspirin Adult Low Dose Active Immunizations Vaccine Route Administration Date Status Comme nts Influenza Unknown 07/02/2021 Administered Social History Social History Additional Details Category Social Info Options Details Miscellaneous: Marital status: Occupation: [employer] at [employer]--retired after the [place] [employer] Notes: Nonsmoker; occ. wine Nonsmoker; occ. wine Problems Problem Type SNOMED Code ICD Code Onset Dates Problem Status W/U Status Risk Notes Problem Screening for malignant neoplasm of colon (745969407) Encounter for screening for malignant neoplasm of colon (Z12.11) Active confirmed Problem History of adenomatous polyp of colon (689001805) History of adenomatous polyp of colon (Z86.010) Active confirmed Problem Screening for malignant neoplasm of rectum (622014464) Encounter for screening for malignant neoplasm of rectum (Z12.12) Active confirmed Problem Preprocedural examination (626070866305749) Preprocedural examination (Z01.818) Active confirmed Problem History of polyp of colon (situation) (378062489) History of colon polyps (Z86.010) Active confirmed Problem Long-term current use of antiplatelet drug (997956160011546) Long-term use of aspirin therapy (Z79.82) Active confirmed Problem Diverticulosis of colon (153995688) Diverticulosis of colon (K57.30) Active confirmed Plan Of Treatment Future Test Test Name Order Date COLONOSCOPY 06/04/2016 COLONOSCOPY 12/17/2021 Insurance Providers Payer Name Payer Address Payer Phone Subscriber Number Group Number Insured Name Patient Relationship to Insured Coverage Start Date Coverage End Date [facility] [address] [place], [place] [id number] ALLIE ECHOLS Self - patient is [...] on Coumadin IDDM since the [facility] Den[facility] [place],CVA,Lung disease,renal disease HTN Sleep apnea-uses CPAP Colonoscopy 08/2016 with 2 sm all tubular adenomas removed, small AVM in ascending colon Pancreatic cancer 2019 with [facility] at [facility]--no chemo nor XRT--had temporary biliary stent placed by [facility] post-op Surgical History Surgery Date(Month/Year) Appy- age 3 Pilonidal cyst Hemmorrhoids [facility] 2019 Abdominal surgery for fistula from the [facility]
== END 2025-08-13 10:59 | disposition home or self-care (01) ==
LOC: HO.HMCFM 09:46
PROVIDERS: PCP Physician Assistant Medical; Visit Provider Physician Assistant Medical
DX: E11.9 Type 2 diabetes mellitus without complications (principal); C61 Malignant neoplasm of prostate; Z79.4 Long term (current) use of insulin; R74.01 Elevation of levels of liver transaminase levels; I10 Essential (primary) hypertension; K76.0 Fatty (change of) liver, not elsewhere classified; E78.00 Pure hypercholesterolemia, unspecified; G47.33 Obstructive sleep apnea (adult) (pediatric); Z95.0 Presence of cardiac pacemaker; Z85.07 Personal history of malignant neoplasm of pancreas; Z92.3 Personal history of irradiation

== ENCOUNTER → 2025-08-13 09:45 | Outpatient (BNVA) | payer MEDICARE, SELFPAY | PROVIDERS: PCP Physician Assistant Medical; Visit Provider Physician Assistant Medical | DX: E11.9 Type 2 diabetes mellitus without complications (principal); R79.89 Other specified abnormal findings of blood chemistry; R80.9 Proteinuria, unspecified; K76.0 Fatty (change of) liver, not elsewhere classified; G47.33 Obstructive sleep apnea (adult) (pediatric); E78.00 Pure hypercholesterolemia, unspecified; C61 Malignant neoplasm of prostate; C25.9 Malignant neoplasm of pancreas, unspecified; R31.29 Other microscopic hematuria; I10 Essential (primary) hypertension; Z95.0 Presence of cardiac pacemaker; Z79.4 Long term (current) use of insulin | CPT/HCPCS: 99212 ==